=== PATIENT | female | born 1955 | race Caucasian/White ===

== ENCOUNTER 2023-11-11 10:06 | Observation (INO) ==
--- NOTE | 2023-10-15 10:18 | PAT Medication Instructions ---
Medication Instructions Date of Service October 15, 2023 Home Medications zinc acetate 50 mg (zinc) capsule (Galzin) 50 mg PO BID cholecalciferol (vitamin D3) 125 mcg (5,000 unit) tablet (Vitamin D3) 125 mcg PO QAM cyanocobalamin (vitamin B-12) 2,500 mcg tablet 2,500 mcg PO QAM cyclobenzaprine 10 mg tablet 10 mg PO TID PRN ferrous sulfate 27 mg iron tablet 27 mg PO QAM potassium 99 mg tablet 99 mg PO QAM furosemide 20 mg tablet 40 mg PO QAM DO NOT take the morning of surgery zinc acetate 50 mg (zinc) capsule (Galzin) 50 mg PO BID cholecalciferol (vitamin D3) 125 mcg (5,000 unit) tablet (Vitamin D3) 125 mcg PO QAM cyanocobalamin (vitamin B-12) 2,500 mcg tablet 2,500 mcg PO QAM ferrous sulfate 27 mg iron tablet 27 mg PO QAM potassium 99 mg tablet 99 mg PO QAM furosemide 20 mg tablet 40 mg PO QAM Take morning of surgery With a small sip of water, OTHERWISE NOTHING TO EAT OR DRINK AFTER MIDNIGHT: cyclobenzaprine 10 mg tablet 10 mg PO TID PRN(if needed) Take evening before surgery zinc acetate 50 mg (zinc) capsule (Galzin) 50 mg PO BID cyclobenzaprine 10 mg tablet 10 mg PO TID PRN(if needed) Other Notes If you have any questions please call us at [phone] or [phone] or [phone] or [phone]
--- NOTE | 2023-10-17 09:57 | Anesthesiology Consultation ---
Date of Service October 17, 2023 Assessment & Plan (1) Encounter for pre-operative examination: - check CBC with diff STAT am DOS-final determination to anesthesiologist evaluation am DOS. - upcoming surgeon ordered cardiology pre-operative evaluation Dr. Mundo [place] and will request most recent office note from PCP [facility]. - changes in labs since 09/25/23 discussed in detail with Dr. Shahid who advised notifying surgeon's office of changes in WBC, Hgb, Hct and platelets and that it is to surgeon's determination if anything additional is needed. He advised checking CBC with diff STAT am DOS and contacting blood bank to have platelets available if needed DOS. Mamadou with blood bank confirmed this and states he will notify PAT if request is denied by [place]. Surgeon's office made aware. Continuity of care message sent to LAWANDA RUBY. Chart Review Chart Review: Pending: Refer to Additional Notes / Consult section and Patient seen in Pre Admission Testing Teaching & Discussion Pre-Anesthesia Teaching/Discussion Notes: Instructed NPO after midnight before surgery, except medications with 15 cc of water. Medication instructions provided according to the PAT guidelines. History Surgery Operation Date: 11/08/23 10:35 Proposed Procedures p L3-S1 Decompression and Fusion - Zia Alexander, Height/Weight Height: 5 ft 9 in Weight: 97.8 kg Allergies Allergy/AdvReac Type Severity Reaction Status Date / Time No Known Allergies Allergy Verified 10/11/23 10:03 Medications Home Medications Medication Instructions Recorded Confirmed Last Taken zinc acetate 50 mg (zinc) capsule 50 mg PO BID 01/14/23 10/11/23 01/27/23 (Galzin) cholecalciferol (vitamin D3) 125 125 mcg PO QAM 01/22/23 10/11/23 01/27/23 mcg (5,000 unit) tablet (Vitamin D3) cyanocobalamin (vitamin B-12) 2,500 mcg PO QAM 01/22/23 10/11/23 01/27/23 2,500 mcg tablet cyclobenzaprine 10 mg tablet 10 mg PO TID PRN Pain 01/22/23 10/11/23 01/27/23 ferrous sulfate 27 mg iron tablet 27 mg PO QAM 01/22/23 10/11/23 01/27/23 potassium 99 mg tablet 99 mg PO QAM 01/22/23 10/11/23 01/27/23 furosemide 20 mg tablet 40 mg PO QAM 10/11/23 10/11/23 Unknown Past Medical History Medical History Arthritis Cirrhosis follows with [facility] Heart murmur 01/2023; f/u dr. miranda, cardio (first seen in [place], dr moved to [place] now) Hx of deep venous thrombosis (~2019) left foot s/p hip surgery (was on blood thinner for 6 months) Hx of iron deficiency anemia has had 2 iron infusions in the past Hx of portal hypertension NAFLD (nonalcoholic fatty liver disease) Patient denies h/o stroke, seizures, heart attack, heart failure, DM, HTN, or blood transfusions. Exercise / Class Metabolic Activity III < 4 Walking/Shop/Light housework (denies chest discomfort or shortness of breath with usual activities) Past Family History Family History Mother Dementia Son Crohn's disease Other No family history of adverse response to anesthesia Denies family history of Colorectal cancer Ulcerative colitis Past Surgical History Surgical History H/O abdominal surgery removed sac formed in abdominal region with cauterization *long time ago H/O colonoscopy H/O gastric bypass 2014 *lost 135lbs History of appendectomy History of bladder surgery sling History of cataract surgery rt/left History of cholecystectomy History of esophagogastroduodenoscopy (EGD) History of hip surgery left side>repaired after fx History of open reduction and internal fixation (ORIF) procedure right femur Hx of tooth extraction all top teeth-wears top denture Nausea and vomiting after administration of anesthetic agent denies needing scop patch [place] teeth removed Past Anesthesia History No Hx of Anesthesia Complications and No Family Hx of Anesthesia Complications History of PONV History of PONV (denies needing scop patch) and Hx of Motion Sickness Social History Smoking Status: Never smoker Do You Dip or Chew Tobacco: No Hx Alcohol Use: Yes alcohol intake frequency: holidays/special occasions only Hx Substance Use: No substance use type: does not use Review of Systems Patient denies chest pain, shortness of breath, dyspnea on exertion, snoring, witnessed apneas, reflux, fever, chills, cough, wheezing, or palpitations. Physical Exam Vital Signs Vitals BP 109/69 P 72 TEMP 97.8 SP02 98% on RA RESP 18 Physical Patient resting comfortably in chair in no acute distress, alert and oriented, responding appropriately throughout visit Full cervical extension range of motion without pain TMD 3.5 finger breadths Mallampati Score 3, mildly limited oral opening Dentition: full upper dentures and middle lower bridge, implant to left lower side, denies chipped or loose teeth, caps/crowns, or implants Lungs: normal respiratory effort. Good air movement, clear throughout to auscultation, no adventitious breath sounds Cardiac: regular rate and rhythm, no murmurs noted Carotid arteries: negative bruit bilat Lab Results Anesthesia Preop Results Results Anesthesia Widget: WBC 2.79 K/ul (4.8-10.8) L 10/17/23 Hgb 10.6 g/dl (12.0-16.0) L 10/17/23 Hct 32.0 % (37.0-47.0) L 10/17/23 Plt 70 K/uL (130-400) L 10/17/23 Na 145 mmol/L (136-145) 09/27/23 K 3.7 mmol/L (3.5-5.1) 09/27/23 Cl 109 mmol/L H 09/27/23 CO2 28.6 mmol/L (21-32) 09/27/23 BUN 22.0 mg/dL H 09/27/23 Creat 0.83 mg/dL (0.6-1.2) 09/27/23 Glucose Level 96 mg/dL (70-99) 09/27/23 PT 13.0 Seconds (9.0-12.0) H 10/17/23 PTT 28 Seconds (21-31) 10/17/23 INR 1.2 (0.9-1.1) H 10/17/23 Urine Color Yellow 10/17/23 Urine Appearance Clear (Clear) 10/17/23 Urine pH 5.0 (4.5-7.5) 10/17/23 Urine Specific Vaughan 1.010 (1.000-1.030) 10/17/23 Urine Protein Negative (Negative) 10/17/23 Urine Glucose (UA) Negative (Negative) 10/17/23 Urine Ketones Negative (Negative) 10/17/23 Urine Blood Negative (Negative) 10/17/23 Urine Nitrite Negative (Negative) 10/17/23 Urine Bilirubin Negative (Negative) 10/17/23 Urine Urobilinogen Negative (Negative) 10/17/23 Urine Leukocyte Esterase 2+ (Negative) H 10/17/23 Urine WBC (Auto) 0-5 /hpf (0-5) 10/17/23 Urine RBC (Auto) 0-2 /hpf (0-2) 10/17/23 Urine Hyaline Casts (Auto) 0-2 /lpf (0-2) 10/17/23 Urine Epithelial Cells (Auto) 0-2 /hpf (0-2) 10/17/23 Urine Bacteria (Auto) None Seen (None Seen) 10/17/23 Blood Type O Positive 10/17/23 Antibody Screen NEGATIVE 10/17/23 Testing Electrocardiogram Date: 10/17/23 NSR, rate 71 bpm Chest X-Ray Date: 01/05/23 No evidence of acute pulmonary disease. Echocardiogram Date: 02/19/23 EF 55-60% Normal LV wall motion Grade I diastolic dysfunction Mildly dilated RV RVSP mildly increased at 30 mmHg Mildly dilated atria Mild mitral regurgitation Mild tricuspid regurgitation Systolic murmur is likely related to aortic sclerosis (no evidence of stenosis) vs mild disproportionate upper septal thickening Stress Test Date: 03/12/23 Negative for myocardial ischemia MPHR 81% EF 60-65% No LV regional wall motion abnormalities
[2023-11-11] MEDS: LR 15ML/HR IV SCH (10:32)
[2023-11-11] MEDS: LR 60ML/HR IV SCH (10:32)
[2023-11-11] MEDS: ACETAMINOPHEN 500 MG TAB PO SCH (10:42)
[2023-11-11] MEDS: CeleBREX 200 MG CAP PO SCH (10:42)
[2023-11-11] MEDS: GABAPENTIN 300 MG CAP PO SCH (10:42)
[2023-11-11] MEDS ORDERED: ONDANSETRON INJ 2 MG/ML 2 ML VIAL ONE ×2 (10:45→13:56)
[2023-11-11] MEDS ORDERED: fentaNYL citrate PF 100 MCG/2 ML VIAL ONE (10:45)
[2023-11-11] MEDS ORDERED: MIDAZOLAM HCL 1 MG/ML 2ML VIAL ONE (10:45)
[2023-11-11] MEDS ORDERED: ROCURONIUM BROMIDE 10 MG/ML 5 ML VIAL IV ONE ×2 (10:45→13:40)
[2023-11-11] MEDS ORDERED: LIDOCAINE 2% 2 ML VIAL/AMP(20MG/ML) INFIL ONE (10:45)
[2023-11-11] MEDS ORDERED: PROPOFOL IV EMULSION 10 MG/ML 20 ML VIAL IV ONE (10:45)
[2023-11-11] MEDS ORDERED: SUGAMMADEX SODIUM 200 MG/2 ML VIAL IV ONE (10:46)
[2023-11-11 10:56] LABS: Basophils # (auto) 0.02 K/uL (0.00-0.20); Basophils % (auto) 0.6 %; Eosinophils # (auto) 0.14 K/uL (0.00-0.50); Eosinophils % (auto) 4.4 %; Hematocrit (blood only) 33.1 % (37.0-47.0); Hemoglobin 10.7 g/dl (12.0-16.0); Immature Granulocytes # (auto) 0.01 K/uL (0.01-0.20); Immature Granulocytes % (auto) 0.3 %; Lymphocytes # (auto) 0.99 K/uL (1.20-3.40); Lymphocytes % (auto) 31.3 %; Mean Corpuscular Hemoglobin 32.3 pg (25.0-34.0); Mean Corpuscular Hgb Conc 32.3 g/dL (32.0-36.0); Mean Platelet Volume 10.2 fL (9.4-12.4); Monocytes # (auto) 0.29 K/uL (0.11-0.59); Monocytes % (auto) 9.2 %; Neutrophils # (auto) 1.71 K/uL (1.40-6.50); Neutrophils % (auto) 54.2 %; Platelet Count 88 K/uL (130-400); RDW Coefficient of Variation 14.9 % (11.5-14.5); RDW Standard Deviation 54.5 fL (36.4-46.3); Red Blood Count 3.31 M/uL (4.20-5.40); White Blood Count 3.16 K/ul (4.8-10.8)
--- NOTE | 2023-11-11 12:39 | History & Physical Bridge Note ---
Date of Service November 11, 2023 History & Physical Bridge Note I have examined the patient, reviewed the History & Physical and in the interval since the performance of the History & Physical I have noted the following changes of clinical significance: no changes noted
--- NOTE | 2023-11-11 12:40 | History & Physical Report ---
Date of Service November 11, 2023 Assessment & Plan (1) Neurogenic claudication due to lumbar spinal stenosis: Plan: L3-S1 decompression and fusion History of Present Illness Chief Complaint: Back and bilateral leg pain Primary Care Provider: Ramirez Lilly MD This is a 68-year-old female presents with chronic persistent back and leg pain after failing course of nonoperative care she is here for surgical intervention. Allergies Allergy/AdvReac Type Severity Reaction Status Date / Time No Known Allergies Allergy Verified 11/11/23 10:29 Home Medications Medication Instructions Recorded Confirmed Type zinc acetate 50 mg (zinc) capsule 50 mg PO BID 01/14/23 11/11/23 History (Galzin) cholecalciferol (vitamin D3) 125 125 mcg PO QAM 01/22/23 11/11/23 History mcg (5,000 unit) tablet (Vitamin D3) cyanocobalamin (vitamin B-12) 2,500 mcg PO QAM 01/22/23 11/11/23 History 2,500 mcg tablet cyclobenzaprine 10 mg tablet 10 mg PO TID PRN Pain 01/22/23 11/11/23 History ferrous sulfate 27 mg iron tablet 27 mg PO QAM 01/22/23 11/11/23 History potassium 99 mg tablet 99 mg PO QAM 01/22/23 11/11/23 History furosemide 20 mg tablet 40 mg PO QAM 10/11/23 11/11/23 History Past Med/Surg History Problem List (Updated 11/11/23 @ 12:40 by Zia Alexander DO) Neurogenic claudication due to lumbar spinal stenosis Encounter for pre-operative examination Cirrhosis Portal hypertension NAFLD (nonalcoholic fatty liver disease) Medical History (Updated 11/11/23 @ 12:40 by Zia Alexander DO) Thrombocytopenia Hx of iron deficiency anemia has had 2 iron infusions in the past Hx of portal hypertension NAFLD (nonalcoholic fatty liver disease) Cirrhosis follows with [facility] Arthritis Hx of deep venous thrombosis (~2019) left foot s/p hip surgery (was on blood thinner for 6 months) Heart murmur 01/2023; f/u dr. miranda, cardio (first seen in [place], moved to [place] now) Surgical History History of open reduction and internal fixation (ORIF) procedure right femur Hx of tooth extraction all top teeth-wears top denture History of bladder surgery sling History of hip surgery left side>repaired after fx History of cholecystectomy History of appendectomy H/O abdominal surgery removed sac formed in abdominal region with cauterization *long time ago [place] teeth removed History of cataract surgery rt/left Nausea and vomiting after administration of anesthetic agent denies needing scop patch H/O colonoscopy History of esophagogastroduodenoscopy (EGD) H/O gastric bypass 2014 *lost 135lbs Family History Mother Dementia Son Crohn's disease Other No family history of adverse response to anesthesia Denies family history of Colorectal cancer Ulcerative colitis Social History Smoking Status: Never smoker Second Hand Exposure: No; Do You Dip or Chew Tobacco: No; Tobacco Cessation Education Requested by Patient: No Hx Alcohol Use: Yes Hx Substance Use: No Preferred Language: Slovenian Communication Ability: Effective Rod Buster Helper Required: No Beliefs That Will Affect Care: None Current Living Situation: Spouse Other Information That Helps Us Care for You: No Feels Safe at Home: Yes Safety Concerns: Feels Safe At This Time Assistive Devices: Denture - Upper Physical Exam Physical Exam: Patient is alert and oriented Heart regular in rhythm Lungs clear Results & Data Results & Data Vital Signs (Past 12 Hours) Vital Signs Temp Pulse Resp BP Pulse Ox O2 Del Method 11/11/23 10:33 36.7 C 70 16 140/75 97 Room Air
[2023-11-11] MEDS: BUPIVACAINE/EPINEPHRINE 0.25% 1:200,000 30 ML VIAL ONE (13:49)
[2023-11-11] MEDS ORDERED: DEXAMETHASONE SOD INJ 4 MG/ML VIAL ONE (13:56)
[2023-11-11] MEDS: ceFAZolin 330 MG/ML 1 GM VIAL ONE (14:20)
[2023-11-11] MEDS ORDERED: TRANEXAMIC ACID / 0.7% NACL 1000MG/100ML BAG IV ONE (14:36)
[2023-11-11] MEDS: FLOSEAL HEMOSTATIC MATRIX 10ML TOP ONE (15:18)
--- NOTE | 2023-11-11 15:27 | Operative Report ---
Post Operative Report Pre & Post Diagnosis Operation Date: 11/11/23 12:15 Pre-Op Diagnosis: Spinal Stenosis Lumbar Region with Neurogenic Claudication Lumbar spondylolisthesis Post-Op Diagnosis: same I identified the patient and participated in the time-out.: Yes Procedure Operation Date: 11/11/23 12:15 Actual Procedures #1 revision decompression fusion L2-L3, L3-L4 and L4-5. #2 posterior spinal fusion L3-5. #3 please posttransplantation L3-L5. #4 interbody fusion L4-5. #5 placement of Spira 13 x 26 mm x 2 at L4-L5. #6 placement locally harvested Yayo graft in the posterior gutters. #7 please infuse collagen sponge combined with corresponding graft in the posterior lateral gutters and Morpheus bone graft interbody space. Surgeon Zia Alexander, DO Clinical Admissions Manager Rosaline Elizabeth Estimated Blood Loss 450 Findings See Below The patient is 5 foot 9 weighing over 9 kg with a BMI in excess of 32. The patient perhaps did contribute to significant technical difficulty with positioning exposure and the procedure itself and at least 50% increased operative time. Specimens None Indications This is a 68-year-old female presents with the above mentioned diagnoses after failing course of nonoperative care she is here for surgical intervention. Description of Procedure Patient was met with identified informed consent obtained. Patient was then taken to the operative suite underwent the patient placement prone position on the El table on top of the Bubba frame. All bony prominences well-padded eyes inspected to ensure no external pressure placed upon them. This point the lumbar spine was prepped and draped in the normal sterile fashion. Sharp dissection with the assistance of Bovie cautery from down to and exposing the remaining lamina and transverse processes of L3-L4 bilaterally. From a colesevelam fashion a revision complete laminectomy of L4 was performed including bilateral medial facetectomy and foraminotomies addressing severe spinal stenosis and facet hypertrophy. The performed a complete laminectomy of L3 with bilateral medial facetectomies and foraminotomies addressing severe spinal stenosis and lastly partial laminectomy L2 with bilateral medial facetectomies to address severe subarticular stenosis. Pedicle screws were then placed at L3 L4-5 bilaterally with assistance of fluoroscopy and pelvis as niharika placed. By way of transforaminal approach right a discectomy L4-L5 was performed and titrated to subcortical bleeding bone with a 13 x 26 mm para cage filled with Morpheus bone graft tapped into position. Then proceeded to the left transforaminal region at L4-5. Again complete discectomy performed imp lant, distal cortical and bone and a second 13 x 26 mm spiral cage filled with Morpheus bone graft tapped in position. Rods were then compressed the transverse processes of L3-L4 fiber to subcortical bleeding bone. Infuse collagen sponge combined with Koros and local autograft placed in the posterior lateral gutters. 15 round PEE drain inserted. Incision was then closed with 1 Vicryl in the fascia 2-0 Vicryl subcutaneously and 4 Monocryl for final skin closure. Steri-Strips and sterile dressing placed. Patient waken taken to PACU in a stable condition. Please note spinal cord monitoring was utilized throughout the procedure no changes noted. Rosaline Elizabeth was present at the entire procedure and both the patient positioning complex portions of the procedure and final skin closure. Im ordering 20 grams of Triple Bristol Collagen Powder ([employer].It [id number]) to treat an incision wound that was caused by a spine procedure. The incision is approximately 2 cm(W) x 4 cm(L) into the joint (D) in size and is a full thickness wound. Triple Bristol collagen comes in 1 gram packets so 20 packets were ordered. Given the size of the wound, with light to moderate exudate I chose to order a 20 day supply. The patient will be provided instructions for proper application of the collagen wound kit. The patient will be asked to apply the collagen powder daily and then cover it with sterile dressings dispensed. Collagen was selected as I expect the collagen to attract monocytes and fibroblasts, act as a sacrificial substrate for MMPs, and ultimately proved a matrix for tissue and vessel growth. The collagen will act as a primary dressing in this scenario. It is medically necessary for proper healing of these wounds to improve bioavailability and contact with each wound surface, this is also to help prevent infection of wounds and promote healing ultimately leading to a better healing outcome and limit the risk of infection. I attest to the content of the Intraoperative Record and any orders documented therein. Any exceptions are noted below.
--- NOTE | 2023-11-11 15:33 | Fluoroscopy Report ---
FL lumbar spine 2-3V CLINICAL HISTORY: L3-S1 DECOMPRESSION AND FUSION WITH INTERBODIES COMPARISON STUDY: None. FLUOROSCOPY TIME: 23 seconds FLUOROSCOPY IMAGES: 2 Ka,r: 15.6 mGy FINDINGS: Posterior decompression and fusion at L3-L5 with pedicle screws and rods. Hardware appears intact. Disc spacer is noted at the L4-5 level. Small curvilinear density at the L3 laminectomy site may represent a small pledget. IMPRESSION: Fluoroscopic assistance as above. ACT 112: Negative or not required by law. Electronically signed by: Joe Faust M.D. 11/11/2023 3:32 PM
[2023-11-11] MEDS ORDERED: HYDROmorphone INJ 2 MG/ML SYR/VIAL IV PRN (16:15)
[2023-11-11] MEDS ORDERED: ATROPINE SULFATE 0.1 MG/ML 10ML SYR IV PRN (16:15)
[2023-11-11] MEDS ORDERED: ONDANSETRON INJ 2 MG/ML 2 ML VIAL IV PRN ×2 (16:15→17:16)
[2023-11-11] MEDS ORDERED: ePHEDrine sulfate 50 MG/ML AMP IV PRN (16:15)
[2023-11-11] MEDS ORDERED: PROMETHAZINE HCL 6.25 MG in SODIUM CHLORIDE 0.9% 50 ML IV PRN (16:15)
[2023-11-11] MEDS ORDERED: fentaNYL citrate PF 100 MCG/2 ML VIAL IV PRN (16:15)
--- NOTE | 2023-11-11 16:27 | Anesthesiology Progress Note ---
Date of Service November 11, 2023 Anesthesia Post Procedure Vital Signs Vital Signs: Temp Pulse Pulse Resp BP Pulse Ox O2 Del Method 11/11/23 16:15 63 12 128/72 97 Nasal Cannula 11/11/23 16:05 69 13 135/77 97 Nasal Cannula 11/11/23 15:55 63 13 137/73 99 Nasal Cannula 11/11/23 15:45 64 13 142/68 H 99 Nasal Cannula 11/11/23 15:37 36.0 C L 71 12 131/69 98 Nasal Cannula 11/11/23 10:33 36.7 C 70 16 140/75 97 Room Air O2 Flow Rate 11/11/23 16:15 0 11/11/23 16:05 2 11/11/23 15:55 4 11/11/23 15:45 4 11/11/23 15:37 4 11/11/23 10:33 Pain Intensity Bilateral Lower Back: Pain Intensity: 5 Transfer of Care Handoff Completed per policy Notes Mental Status: alert / awake / arousable and participated in evaluation Patient Amnestic to Procedure: Yes Nausea / Vomiting: adequately controlled Pain: adequately controlled Airway Patency, RR, SpO2: stable & adequate BP & HR: stable & adequate Hydration State: stable & adequate Anesthetic Complications: no major complications apparent and Pt Satisfied with anesthetic care
[2023-11-11] MEDS ORDERED: FAMOTIDINE 20 MG TAB PO PRN (17:16)
[2023-11-11] MEDS ORDERED: HYDROmorphone INJ 0.5 MG/0.5 ML SYR IV PRN (17:16)
[2023-11-11] MEDS ORDERED: DO NOT ADMINISTER PNEUMOCOCCAL VACCINE PRN (17:16)
[2023-11-11] MEDS ORDERED: oxyCODONE HCL IR 5 MG TAB (IMMEDIATE RELEASE) PO PRN (17:16)
[2023-11-11] MEDS ORDERED: SOD PHOSPHATE/SOD BIPHOSPHATE ENEMA 132 ML BTL PR PRN (17:16)
[2023-11-11] MEDS ORDERED: NALOXONE HCL 0.4 MG/1 ML VIAL/CARP IV PRN (17:16)
[2023-11-11] MEDS ORDERED: METOCLOPRAMIDE HCL INJ 5 MG/ML 2 ML VIAL IV PRN (17:16)
[2023-11-11] MEDS ORDERED: CYCLOBENZAPRINE HCL 10 MG TAB PO PRN (17:16)
[2023-11-11] MEDS ORDERED: ACETAMINOPHEN 500 MG TAB PO PRN (17:16)
[2023-11-11] MEDS ORDERED: ONDANSETRON 4 MG OD TAB PO PRN (17:16)
[2023-11-11] MEDS ORDERED: DO NOT ADMINISTER FLU VACCINE PRN (17:16)
[2023-11-11] MEDS ORDERED: LORazepam 0.5 MG in SYRINGE 0.25 ML IV PRN (17:16)
[2023-11-11] MEDS ORDERED: PROMETHAZINE HCL 12.5 MG in SODIUM CHLORIDE 0.9% 50 ML IV PRN (17:16)
[2023-11-11] MEDS ORDERED: HYDROmorphone INJ 1 MG/ML SYRINGE IV PRN (17:16)
[2023-11-11] MEDS ORDERED: diphenhydrAMINE Capsule 25 MG CAP PO PRN (17:16)
[2023-11-11] MEDS ORDERED: MAGNESIUM HYDROXIDE SUSP 30 ML UDC PO PRN (17:16)
[2023-11-11] MEDS ORDERED: bisacodyL 10 MG SUPP PR PRN (17:16)
[2023-11-11] MEDS ORDERED: ALUMINUM/MAGNESIUM SUSP 30 ML UDC PO PRN (17:16)
[2023-11-11] MEDS ORDERED: ACETAMINOPHEN 1,000 MG/100 ML VIAL IV PRN (17:16)
[2023-11-11] MEDS ORDERED: hydrOXYzine HCl 25 MG TAB PO PRN (17:16)
[2023-11-11] MEDS: ceFAZolin 2000MG 2,000 MG/15 ML SYR IV SCH ×2 (17:18→21:21)
[2023-11-11] MEDS: SODIUM CHLORIDE 0.9% 1,000 ML IV SCH (17:52)
--- NOTE | 2023-11-11 18:14 | Hospitalist Consultation ---
Date of Consultation November 11, 2023 Assessment & Plan (1) S/P spinal surgery: This is a 68yo F with a PMH of NAFLD cirrhosis with portal HTN, AV sclerosis and other medical problems listed below who is POD#0 s/p revision decompression fusion L2-L3, L3-L4 and L4-5, posterior spinal fusion L3-5, please post transplantation L3-L5, interbody fusion L4-[address] Alexander. POD#0 s/p revision decompression fusion L2-L3, L3-L4 and L4-5, posterior spinal fusion L3-5, please posttransplantation L3-L5, interbody fusion L4-[address] Alexander. Per ortho for pain control, wound care, anticoagulation and activities Monitor H&H (EBL 450ml, pre-op hgb 10.7) Continue incentive spirometry, PT/OT when appropriate (2) Cirrhosis: (3) NAFLD (nonalcoholic fatty liver disease): (4) Portal hypertension: Follows with [facility]. Continue home dose lasix tomorrow based on volume status, BMP in AM 2g sodium restriction (5) Systolic murmur: May 2023 echo with EF 55-60% and mild TR, AV sclerosis but no stenosis, diastolic dysfunction. Dr. Rowe of [place] cards reviewed, recommends aspirin 81mg daily DVT Ppx: SCDs Code status: FULL PCP: [facility] Brigida Dispo: Per primary service Patient seen in collaboration with Dr. Wilson. Please see addendum. I spent a total of 60 minutes coordinating, documenting, and providing care for this patient excluding time spent in the performance of separately billed services. Thank you for this consultation. We will follow the patient with you during their hospital stay. You can reach a member of the [facility] Hospitalist Team 12/11 via [email or web address]. Supervising Physician Co-Signing Physician Notes Pt was seen and examined by myself, Chrystal Wilson MD on the day of service. Care was coordinated with Venus Hanson PA-C. 68yoF s/p lumbar decompression and fusion with ortho spine. States that her pain is well controlled, denied acute concerns at time of exam. monitor hgb postop, ensure cardiology and GI followup after discharge Otherwise as above. I spent a total [id number] coordinating, documenting, and providing care for this patient excluding time spent in the performance of separately billed services History of Present Illness Reason for Consultation: post op med mgmt Attending Physician: Zia Alexander DO History of Present Illness This is a 68yo F with a PMH of NAFLD cirrhosis with portal HTN, AV sclerosis and other medical problems listed below who is POD#0 s/p revision decompression fusion L2-L3, L3-L4 and L4-5, posterior spinal fusion L3-5, please posttransplantation L3-L5, interbody fusion L4-[address] Alexander. Feels well post operatively. Endorsing some minimal surgical site discomfort. No pain or paresthesias of lower extremities. Has Colindres catheter in place. No nausea or vomiting postoperatively. Receives primary care through [facility]. Follows with [facility] service for NAFLD cirrhosis on Lasix and low-sodium diet. No fever, chills, lightheadedness, chest pain, shortness of breath, nausea, vomiting, abdominal pain, dysuria, diarrhea or constipation. Allergies Allergy/AdvReac Type Severity Reaction Status Date / Time No Known Allergies Allergy Verified 11/11/23 10:29 Home Medications Medication Instructions Recorded Confirmed Type zinc acetate 50 mg (zinc) capsule 50 mg PO BID 01/14/23 11/11/23 History (Galzin) cholecalciferol (vitamin D3) 125 125 mcg PO QAM 01/22/23 11/11/23 History mcg (5,000 unit) tablet (Vitamin D3) cyanocobalamin (vitamin B-12) 2,500 mcg PO QAM 01/22/23 11/11/23 History 2,500 mcg tablet cyclobenzaprine 10 mg tablet 10 mg PO TID PRN Pain 01/22/23 11/11/23 History ferrous sulfate 27 mg iron tablet 27 mg PO QAM 01/22/23 11/11/23 History potassium 99 mg tablet 99 mg PO QAM 01/22/23 11/11/23 History furosemide 20 mg tablet 40 mg PO QAM 10/11/23 11/11/23 History Patient History Medical History (Updated 11/11/23 @ 18:20 by Venus Hanson PA-C) Systolic murmur Thrombocytopenia Hx of iron deficiency anemia has had 2 iron infusions in the past Hx of portal hypertension NAFLD (nonalcoholic fatty liver disease) Cirrhosis follows with [facility] Arthritis Hx of deep venous thrombosis (~2019) left foot s/p hip surgery (was on blood thinner for 6 months) Heart murmur 01/2023; f/u dr. miranda, cardio (first seen in [place], dr moved to [place] now) Surgical History (Updated 11/11/23 @ 18:20 by Venus Hanson PA-C) History of open reduction and internal fixation (ORIF) procedure right femur Hx of tooth extraction all top teeth-wears top denture History of bladder surgery sling History of hip surgery left side>repaired after fx History of cholecystectomy History of appendectomy H/O abdominal surgery removed sac formed in abdominal region with cauterization *long time ago [place] teeth removed History of cataract surgery rt/left Nausea and vomiting after administration of anesthetic agent denies needing scop patch H/O colonoscopy History of esophagogastroduodenoscopy (EGD) H/O gastric bypass 2014 *lost 135lbs Family History (Updated 11/11/23 @ 19:09 by Venus Hanson PA-C) Mother Dementia Son Crohn's disease Other Heart disease No family history of adverse response to anesthesia Denies family history of Colorectal cancer Ulcerative colitis Social History Smoking Status: Never smoker Second Hand Exposure: No; Do You Dip or Chew Tobacco: No; Tobacco Cessation Education Requested by Patient: No Hx Alcohol Use: Yes Hx Substance Use: No Preferred Language: Amharic Communication Ability: Effective Sports Medicine Trainer Required: No Beliefs That Will Affect Care: None Current Living Situation: Spouse Other Information That Helps Us Care for You: No Feels Safe at Home: Yes Safety Concerns: Feels Safe At This Time Assistive Devices: Denture - Upper Review of Systems Review of Systems: At least ten systems reviewed and negative except as noted in the HPI. Physical Exam Physical Exam: General Appearance: WD/WN, vitals as above, NAD, sitting up in bed, pleasant, conversing easily Head: normocephalic, atraumatic Eyes: normal inspection, PERRL ENT: oropharynx normal Neck: normal visual inspection Respiratory: normal respiratory effort, lungs clear to auscultation, no wheeze, rales, rhonchi. No accessory muscle use Cardiovascular: regular rate, rhythm,normal peripheral pulses, trace BLE edema. Vessels: no JVD Abdomen/GI: normal bowel sounds, soft, nontender, no hepatosplenomegaly : + Colidnres Extremities/Musculoskeletal: + Spinal dressing c/d/i. PEE drain visualized. No cyanosis or clubbing, extremities motor strength 5/5 Neurologic: PERRL, no face palsy, no dysarthria, moves all extremities Psychiatric: A+Ox3, euthymic affect Skin: no rashes, normal color, warm/dry Results & Data Results & Data Vital Signs (Past 12 Hours) Vital Signs Temp Pulse Pulse Pulse Resp BP Pulse Ox 11/11/23 17:44 36.3 C L 60 16 149/80 H 95 11/11/23 17:19 36.4 C L 61 16 137/75 96 11/11/23 16:25 36.4 C L 60 12 128/72 96 11/11/23 16:15 63 12 128/72 97 11/11/23 16:05 69 13 135/77 97 11/11/23 15:55 63 13 137/73 99 11/11/23 15:45 64 13 142/68 H 99 11/11/23 15:37 36.0 C L 71 12 131/69 98 11/11/23 10:33 36.7 C 70 16 140/75 97 O2 Del Method O2 Flow Rate 11/11/23 17:44 Room Air 11/11/23 17:19 Room Air 11/11/23 16:25 Room Air 0 11/11/23 16:15 Room Air 0 11/11/23 16:05 Nasal Cannula 2 11/11/23 15:55 Nasal Cannula 4 11/11/23 15:45 Nasal Cannula 4 11/11/23 15:37 Nasal Cannula 4 11/11/23 10:33 Room Air Laboratory Results Short CBC 11/11/23 Range/Units 10:25 WBC 3.16 L (4.8-10.8) K/ul Hgb 10.7 L (12.0-16.0) g/dl Hct 33.1 L (37.0-47.0) % Plt Count 88 L (130-400) K/uL Diagnostic Findings Lumbar Spine X-Ray 11/11/23 12:15 FL lumbar spine 2-3V CLINICAL HISTORY: L3-S1 DECOMPRESSION AND FUSION WITH INTERBODIES COMPARISON STUDY: None. FLUOROSCOPY TIME: 23 seconds FLUOROSCOPY IMAGES: 2 Ka,r: 15.6 mGy FINDINGS: Posterior decompression and fusion at L3-L5 with pedicle screws and rods. Hardware appears intact. Disc spacer is noted at the L4-5 level. Small curvilinear density at the L3 laminectomy site may represent a small pledget. IMPRESSION: Fluoroscopic assistance as above. ACT 112: Negative or not required by law. Electronically signed by: Joe Faust M.D. 11/11/2023 3:32 PM ECG Additional Comments: EKG reviewed - NSR
[2023-11-11] MEDS: traMADol HCL 50 MG TABLET PO PRN (19:59)
[2023-11-11] MEDS: DOCUSATE SODIUM/SENNA 50/8.6MG TAB PO SCH (20:01)
[2023-11-11] MEDS: ZINC SULFATE 220 MG CAPSULE PO SCH (20:01)
[2023-11-12] MEDS: POLYETHYLENE (MIRALAX) 17 GM PACK PO SCH (05:31)
[2023-11-12] MEDS: dexAMETHasone 6 MG in SYRINGE 0 ML IV SCH (07:47)
[2023-11-12] MEDS: FERROUS SULFATE 325 MG TAB PO SCH (07:47)
[2023-11-12] MEDS: CHOLECALCIFEROL 125 MCG (5,000 UNITS) TAB PO SCH (07:47)
[2023-11-12] MEDS: FUROSEMIDE 40 MG TAB PO SCH (07:47)
[2023-11-12] MEDS: CYANOCOBALAMIN (B-12) 2,500 MCG TABLET PO SCH (07:47)
[2023-11-12 08:47] LABS: Basophils # (auto) 0.01 K/uL (0.00-0.20); Basophils % (auto) 0.1 %; Hematocrit (blood only) 26.4 % (37.0-47.0); Hemoglobin 8.6 g/dl (12.0-16.0); Immature Granulocytes # (auto) 0.04 K/uL (0.01-0.20); Immature Granulocytes % (auto) 0.4 %; Lymphocytes # (auto) 0.69 K/uL (1.20-3.40); Lymphocytes % (auto) 7.5 %; Mean Corpuscular Hemoglobin 32.5 pg (25.0-34.0); Mean Corpuscular Hgb Conc 32.6 g/dL (32.0-36.0); Mean Corpuscular Volume 99.6 fL (80.0-100.0); Mean Platelet Volume 10.9 fL (9.4-12.4); Monocytes # (auto) 0.81 K/uL (0.11-0.59); Monocytes % (auto) 8.8 %; Neutrophils # (auto) 7.64 K/uL (1.40-6.50); Neutrophils % (auto) 83.2 %; Platelet Count 99 K/uL (130-400); RDW Coefficient of Variation 14.7 % (11.5-14.5); RDW Standard Deviation 53.5 fL (36.4-46.3); Red Blood Count 2.65 M/uL (4.20-5.40); White Blood Count 9.19 K/ul (4.8-10.8)
[2023-11-12] MEDS ORDERED: NON-FORMULARY MEDICATION (Potassium 99 mg Tablet) PO SCH (09:00)
[2023-11-12 09:06] LABS: BUN Creatinine Ratio 32.9 (10-20); Calcium 7.8 mg/dl (8.6-10.3); Creatinine Clr Calc Pharmacy 89.9 ml/min; Est GFR (African American) 96.7 ml/min; Est GFR (Non-African American) 83.4 ml/min
--- NOTE | 2023-11-12 09:24 | Hospitalist Progress Note ---
Date of Service November 12, 2023 Assessment & Plan (1) S/P spinal surgery: Plan: Acute blood loss anemia This is a 68yo F with a PMH of NAFLD cirrhosis with portal HTN, AV sclerosis and other medical problems listed below who is POD#0 s/p revision decompression fu vickey L2-L3, L3-L4 and L4-5, posterior spinal fusion L3-5, please posttransplantation L3-L5, interbody fusion L4-[address] Alexander. POD#1 s/p revision decompression fusion L2-L3, L3-L4 and L4-5, posterior spinal fusion L3-5, please posttransplantation L3-L5, interbody fusion L4-[address] Alexander. Per ortho for pain control, wound care, anticoagulation and activities Postop hemoglobin of 8.6; down from baseline of 10.7 Continue incentive spirometry, PT/OT when appropriate Monitor PEE drain (2) Cirrhosis: (3) NAFLD (nonalcoholic fatty liver disease): (4) Portal hypertension: Plan: Follows with [facility]. will resume her lasix from tomorrow 2g sodium restriction (5) Systolic murmur: Plan: May 2023 echo with EF 55-60% and mild TR, AV sclerosis but no stenosis, diastolic dysfunction. Dr. Rowe of [place] cards reviewed, recommends aspirin 81mg daily DVT Ppx: SCDs Code status: FULL PCP: [facility] Brigida Dispo: Per primary service Thank you for this consultation. We will follow the patient with you during their hospital stay. You can reach a member of the [facility]11 via [employer]. Please note the above document was generated using voice recognition software. It may contain grammatical, syntax or spelling errors. Any formal questions or concerns about the content, text or information contained within the body of this dictation should be directly addressed to the provider for clarification Admission and Anticipated Discharge Date Admission Date: November 11, 2023 Subjective Patient seen and examined at bedside. Comfortable; not in distress. Denies fever, chills, chest pain, shortness of breath, abdominal pain or urinary symptoms. No significant overnight events Review of Systems Review of Systems: All systems reviewed & are unremarkable except as noted in Subjective Physical Exam Physical Exam: General Appearance: WD/WN, vitals as above, NAD, pleasant, conversing easily Respiratory: normal respiratory effort, lungs clear to auscultation, no wheeze, rales, rhonchi. No accessory muscle use Cardiovascular: regular rate, rhythm,normal peripheral pulses, trace BLE edema. Vessels: no JVD Abdomen/GI: normal bowel sounds, soft, nontender, no hepatosplenomegaly : + Colindres Extremities/Musculoskeletal: + Spinal dressing c/d/i. PEE drain visualized. No cyanosis or clubbing, extremities motor strength 5/5 Neurologic: PERRL, no face palsy, no dysarthria, moves all extremities Psychiatric: A+Ox3, euthymic affect Skin: no rashes, normal color, warm/dry Results & Data Results & Data Vital Signs (Past 12 Hours) Vital Signs Temp Pulse Resp BP BP Pulse Ox O2 Del Method 11/12/23 07:34 36.6 C 70 16 103/64 95 Room Air 11/12/23 03:07 36.5 C 73 16 109/61 96 Room Air 11/11/23 23:29 36.5 C 65 15 108/63 96 Room Air
--- NOTE | 2023-11-12 09:52 | Orthopedic Progress Note ---
Date of Service November 12, 2023 Assessment & Plan (1) Neurogenic claudication due to lumbar spinal stenosis: Plan: This time we will continue physical therapy monitor her PEE output hopefully discharge home in the next few days. Admission and Anticipated Discharge Date Admission Date: November 11, 2023 Subjective Back pain controlled leg pain improved Physical Exam Physical Exam: Patient seen at bedside. She is comfortable. Section strength testing. Results & Data Vital Signs (Past 12 Hours) Vital Signs Temp Pulse Resp BP BP Pulse Ox O2 Del Method 11/12/23 07:34 36.6 C 70 16 103/64 95 Room Air 11/12/23 03:07 36.5 C 73 16 109/61 96 Room Air 11/11/23 23:29 36.5 C 65 15 108/63 96 Room Air Queries Orthopedic Spine Obesity: Yes
[2023-11-12] MEDS: LORazepam 0.5 MG TAB PO PRN (22:26)
[2023-11-13] MEDS: FUROSEMIDE 40 MG TAB PO SCH (08:00)
--- NOTE | 2023-11-13 09:38 | Discharge Summary ---
Date of Service November 13, 2023 Admission HPI Per Admitting Provider This is a 68-year-old female presents with chronic persistent back and leg pain after failing course of nonoperative care she is here for surgical intervention. Principal Diagnosis Lumbar spinal stenosis with neurogenic claudication Discharge Data Allergies Allergy/AdvReac Type Severity Reaction Status Date / Time No Known Allergies Allergy Verified 11/11/23 10:29 Consultations 11/11/23 17:16 Consult Hospitalist Routine Procedures Performed Operation Date: 11/11/23 12:15 Actual Procedures p L3-S1 Decompression and Fusion(Not Applicable) - Zia Alexander DO Ordered Studies 11/11/23 12:15 FL lumbar spine 2-3V Routine Hospital Course (1) Neurogenic claudication due to lumbar spinal stenosis: Impressive patient went multilevel lumbar decompression fusion trial as well as taken to orthopedic for postoperative. Postop as she progressed appropriately. Leg symptoms improved. Back pain controlled. Excellent strength testing. Subsidy discharged home. She will be discharged home with her drain and follow- up in the office next few days for removal. Discharge orders instructions from the chart for further review. Total Time Total Time Spent Total Time Spent (In Minutes): 20 minutes Discharge Plan Discharge Items Patient Disposition: Home - Self-Care Reason For Visit: Spinal Stenosis Lumbar Region with Neurogenic Vanda Discharge Diagnosis: lumbar stenosis Activity: As commented below Non-emergency contact: Primary Care Provider Call non-emergency contact if: you have any medication questions Follow-up/Referrals: Ramirez Lilly MD [Primary Care Provider] - Diet: Regular Addtl Attending Provider Instructions: ACTIVITY RECOMMENDATIONS: SELF CARE INSTRUCTIONS AFTER THORACIC/LUMBAR FUSIONS 1. You may walk to your tolerance. It is good exercise for your legs and back. Expect some back and intermittent leg aches and pains. 2. You may perform "counter-top" level activities (make a sandwich, laura with a project, etc.). 3. No bending or lifting of more than 10 pounds or back twisting of any nature (roll like a log when turning in bed). 4. You may ride in a car for 20-30 minutes at a time. No driving until after your first visit with your doctor. 5. Frequent changes of position and restricting sitting to 30 minutes at a time will help limit the amount of back spasms and stiffness you may experience. 6. You may discontinue the use of ambulatory aids (cane, crutches, etc.) once your strength and confidence allow. 7. You may pulmonologist/intensivist the shower and let water strike your incision when you arrive home at least once daily. Do not take a tub bath, sit in a hot tub or go into a swimming pool until after your first recheck in the office. SPECIAL CARE INSTRUCTIONS: VERY IMPORTANT TO READ AND REVIEW A. Your surgical incision has been closed with a cosmetic suture under the skin that will dissolve in about 6 weeks. In 14 days, you can use a pair of clean scissors and cut the suture that is left outside of the skin at the ends of your incision. 1. The small skin tapes can be removed 7 days after surgery if they have not fallen off by that point. 2. You may keep the wound open to air as much as possible to promote healing after post-op day number 5 unless told otherwise by your doctor. 3. If you think the wound looks like it is becoming infected (redness or worsening drainage) and/or you are experiencing fever, chill or worsening back pain and muscle spasms, contact the office so that we may evaluate you as soon as possible. B. Complications are uncommon, but please contact us if you have any signs or symptoms of: 1. wound infection (fever higher than 102.5 degrees F, redness, separation of wound, drainage, or increasing pain from the incision) 2. blood clots in legs (pain, swelling, redness and warmth in legs) 3. urinary tract infection (fever higher than 102.5 degrees F, burning upon urination or increased frequency of urination) 4. nerve problems (inability to walk on your toes or heels, numbness, loss of bowel or bladder control) 5. any other symptoms that concern you C. Please call the office at if you have any concerns or questions about your operation or recovery. D. No smoking! Smoking drastically decreases the chance of a solid fusion. E. Do not take any anti-inflammatory medications (Indocin, Advil, Motrin, Aspirin, Naprosyn, etc.) as these may inhibit the chance of a solid fusion. Tylenol is okay to take for pain. MANAGING PAIN AFTER SPINAL SURGERY 1. Narcotic medication is intended for short-term use and will be provided for surgical pain. Surgical pain usually lasts for a period of 4-6 weeks. Narcotic medication includes Percocet, Vicodin, Darvocet, Tylenol #3 or Lortab. 2. Longer-term pain is more appropriately treated with non-narcotic medication such as Tylenol ES. 3. Muscle spasm is not appropriately treated with narcotics. Muscle relaxers such as Soma, Flexeril or Skelaxin can be used along with Tylenol ES. 4. Remember that we all live with some "aches and pains". This is not unusual or uncommon after an injury or as we get older. a. Back pain is expected and may include muscle spasms for 4 to 6 weeks after surgery. The pain should gradually improve. If the pain worsens for no apparent reason, please contact the office. b. Intermittent leg pain may also be experienced and should not be concerned about unless it worsens for no apparent reason. If so, please contact the office. 5. We will provide appropriate medication within the normal guidelines of their prescribed use. We will also be very cautious and aware of potential abuse and extended duration of patients' medication needs. a. Pain medications are for your comfort and to assist with sleep and rest so that the tissue can heal. They are not provided in order to return to normal activity and should not be used through the day. To do so or worsening pain at night can result from ongoing tissue damage and development of tolerance to the prescribed medicine. 6. Please allow 2-3 days to process refills. Prescriptions will not be mailed but must be picked up at the office. FOLLOW UP VISIT: Keep your scheduled follow-up appointment. Any questions, please call the office at . Pending Studies at Discharge: No Stand-Alone Forms: [facility] [employer], Smoking Cessation Medications and DC Order Prescriptions: New tramadol 50 mg tablet 50 mg PO Q6H PRN (Reason: pain, moderate) Qty: 30 0RF oxycodone 5 mg tablet 5 mg PO Q6H PRN (Reason: pain) Qty: 30 0RF Continued Galzin 50 mg (zinc) capsule 50 mg PO BID cyclobenzaprine 10 mg Tablet 10 mg PO TID PRN (Reason: Pain) potassium 99 mg Tablet 99 mg PO QAM ferrous sulfate 27 mg iron Tablet 27 mg PO QAM cholecalciferol (vitamin D3) [Vitamin D3] 125 mcg (5,000 unit) Tablet 125 mcg PO QAM cyanocobalamin (vitamin B-12) 2,500 mcg Tablet 2,500 mcg PO QAM furosemide 20 mg tablet 40 mg PO QAM Discharge Orders: Discharge Order (Routine); Ordered 11/13/23 Ordered By: Zia Alexander Admission Data Admit Date/Time: 11/11/23 15:30 Attending Provider: Zia Alexander Admit Provider: Zia Alexander Primary Care Provider: Ramirez Lilly Other Providers: Chrystal Wilson
--- NOTE | 2023-11-13 19:08 | Hospitalist Progress Note ---
Date of Service November 13, 2023 delayed entry date of service noted above Assessment & Plan (1) S/P spinal surgery: Plan: Acute blood loss anemia This is a 68yo F with a PMH of NAFLD cirrhosis with portal HTN, AV sclerosis and other medical problems listed below who is POD#0 s/p revision decompression fusion L2-L3, L3-L4 and L4-5, posterior spinal fusion L3-5, please posttransplantation L3-L5, interbody fusion L4-[address] Alexander. POD#1 s/p revision decompression fusion L2-L3, L3-L4 and L4-5, posterior spinal fusion L3-5, please posttransplantation L3-L5, interbody fusion L4-[address] Alexander. Per ortho for pain control, wound care, anticoagulation and activities Postop hemoglobin of 8.6; down from baseline of 10.7 Continue incentive spirometry, PT/OT when appropriate Monitor PEE drain 11/13 Stable overall Has history of DVT after hip surgery 4 years ago [address] with Dr. Alexander Does not recommend Lovenox subcu for DVT prophylaxis, okay to resume aspirin as per Dr. Alexander Encourage patient to ambulate frequently and monitor for signs of DVT or PE including shortness of breath, chest pain, leg swelling or pain Patient verbalized understanding and agreement and said that she is very cognizant of such symptoms and will seek medical attention immediately if present (2) Cirrhosis: (3) NAFLD (nonalcoholic fatty liver disease): (4) Portal hypertension: Plan: Follows with [facility]. Resume Lasix 2g sodium restriction (5) Systolic murmur: Plan: May 2023 echo with EF 55-60% and mild TR, AV sclerosis but no stenosis, diastolic dysfunction. Dr. Rowe of [place] cards reviewed, recommends aspirin 81mg daily DVT Ppx: SCDs Code status: FULL PCP: [facility] Brigida Dispo: d/c home Admission and Anticipated Discharge Date Admission Date: November 11, 2023 Subjective Follow-up for status post back surgery, etc. Seen sitting up in bed, comfortable, not in distress States she feels fine overall Back pain well-controlled Denies shortness of breath, chest pain, palpitations, dizziness Ambulating in the room with no problems No other new symptoms States she is ready for discharge today Review of Systems Review of Systems: all noted and negative except for above Physical Exam Physical Exam: General- oriented x 3, not in distress, speaks in sentences with no effort or accessory muscle use Eyes- anicteric Neck- no JVD Lungs- clear breath sounds bilaterally, no rales/wheezes Heart- normal rate, regular rhythm; no murmurs Abdomen- normal bowel sounds, nondistended, soft, nontender Extremities- no pretibial edema, no calf tenderness Neuro- alert, oriented x 3; no gross focal neurologic deficits Skin- warm & dry Results & Data Results & Data Vital Signs (Past 12 Hours) Vital Signs Temp Pulse Resp BP Pulse Ox O2 Del Method 11/13/23 07:54 36.5 C 68 17 110/68 97 Room Air all noted and reviewed including below
== END 2023-11-13 13:11 | disposition home or self-care (01) ==
LOC: 3E 10:06 → ASU 10:06

== ENCOUNTER 2023-11-17 08:55 | Inpatient (IN) ==
--- NOTE | 2023-11-17 09:41 | Emergency Department Note ---
Impression & Plan Right leg swelling, Postoperative back pain ED Provider Note NAME: PORSHA SALES AGE: 68 SEX: Female INFORMANT: Patient ED PROVIDER(S): Timothy Quiroga MD CHIEF COMPLAINT: Right leg swelling and numbness PLAN: Disposition: Admitted Outpatient prescription management: none Referral: None MEDICAL DECISION MAKING: Patient presented due to concerns about leg swelling and numbness after her surgery. She did have a history of blood clot. Ultrasound imaging and blood work performed. Patient declined analgesia. She had no evidence of DVT on ultrasound imaging. Chronic pancytopenia and mild elevation of LFTs that was also chronic noted. Patient was reassessed and updated. Consulted with her surgeon, Dr. Alexander. Discussed case and diagnostics. He recommended IV Decadron and will admit the patient for further management. Discussed with patient and significant other. They are in agreement. Patient given IV Decadron and admitted for further care by orthopedics. 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 Vital Signs: reviewed and remarkable for no significant abnormalities Additional History obtained from: none Chronic Medical/Social Conditions affecting care: none Prior/ Outside/ External records reviewed: Operative report from 11/10 reviewed regarding her decompression of L2-3, L3-4, L4-5. Differential Diagnosis: DVT, complication of recent surgery, musculoskeletal, disc herniation, fracture, metastatic disease, cord compression, discitis, sciatica, cauda equina, infection, aortic disease, renal colic, gastrointestinal, as well as other pathologies. Diagnostics, independently interpreted by me: ECG: None Cardiac Monitoring: Cardiac monitoring ordered by me: The patient was placed on continuous cardiac monitoring and observed. It revealed a normal sinus rhythm at 73 beats per minute without ectopy or evidence of dysrhythmia. Medical decision rules: none Imaging studies: Ultrasound imaging negative for DVT. I refer you to the EMR for further details. HPI: 68 year old Female arrives for evaluation of right leg swelling and numbness. Patient underwent back surgery by Dr. Alexander on 11/10 with decompressions of L2-3, L3-4, and L4-5. Patient states she was doing well. Last night she was noting that her right leg was swollen. She noted numbness that went from her buttock down into her leg. She states that her leg gave out and she fell. She does not feel like she suffered an injury from the fall. She was concerned due to the recent surgery and swelling. Pt denies LOC, headache, neck pain, fevers, chills, chest pain, breathing difficulties, abdominal pain, saddle parasthesias, bowel or bladder dysfunction, weakness, urinary symptoms, or other complaints. PAST MEDICAL HISTORY: See Below, chronic low back pain PAST SURGICAL HISTORY: See Below, lumbar decompression SOCIAL HISTORY: See Below, non-smoker HOME MEDICATIONS: See Below ALLERGIES: See Below VITALS: See Below PHYSICAL EXAMINATION: GENERAL: Awake, alert, well-appearing, in no distress HENT: Normocephalic, atraumatic. Oropharynx unremarkable. EYES: Normal conjunctiva. Sclera non-icteric. NECK: Inspection normal. Non-tender. Supple. No nuchal rigidity. FROM. No masses. RESPIRATORY: Clear to auscultation. No wheezes. No rales. Normal respiratory effort. CARDIAC: Normal rate. Normal rhythm. No murmurs. No rubs. Extremities warm and well perfused. Pulses equal. No JVD. GI: Soft, non-distended. No tenderness to palpation. No rebound or guarding. No masses. RECTAL: Deferred. MUSCULOSKELETAL: Atraumatic. Chest examination reveals no tenderness. The back is symmetrical on inspection without obvious abnormality. Incision is clean dry and intact. No surrounding cellulitis. There is no CVA tenderness to palpation. No joint edema. LOWER EXTREMITIES: Calves are equal size bilaterally and non-tender. 1+ edema. No discoloration. NEURO: Normal sensorium. No sensory or motor deficits noted except for subjective tingling in the right lower extremity. No saddle anesthesia.. SKIN: No rash or jaundice noted. PROCEDURES: none CRITICAL CARE: none OBSERVATION NOTE: none Past Med/Surg History Problem List (Updated 11/17/23 @ 09:41 by Timothy Quiroga MD) Postoperative back pain (Acute) Right leg swelling (Acute) S/P spinal surgery Neurogenic claudication due to lumbar spinal stenosis Cirrhosis Portal hypertension NAFLD (nonalcoholic fatty liver disease) Medical History (Updated 11/17/23 @ 09:41 by Timothy Quiroga MD) Systolic murmur Thrombocytopenia Hx of iron deficiency anemia has had 2 iron infusions in the past Hx of portal hypertension NAFLD (nonalcoholic fatty liver disease) Cirrhosis follows with [facility] Arthritis Hx of deep venous thrombosis (~2019) left foot s/p hip surgery (was on blood thinner for 6 months) Heart murmur 01/2023; f/u dr. miranda, cardio (first seen in [place], dr moved to [place] now) Surgical History (Updated 11/17/23 @ 00:07 by Marcello Salazar) History of open reduction and internal fixation (ORIF) procedure right femur Hx of tooth extraction all top teeth-wears top denture History of bladder surgery sling History of hip surgery left side>repaired after fx History of cholecystectomy History of appendectomy H/O abdominal surgery removed sac formed in abdominal region with cauterization *long time ago [place] teeth removed History of cataract surgery rt/left Nausea and vomiting after administration of anesthetic agent denies needing scop patch H/O colonoscopy History of esophagogastroduodenoscopy (EGD) H/O gastric bypass 2014 *lost 135lbs Family History (Updated 11/11/23 @ 19:09 by Venus Hanson PA-C) Mother Dementia Son Crohn's disease Other Heart disease No family history of adverse response to anesthesia Denies family history of Colorectal cancer Ulcerative colitis Social History Smoking Status: Never smoker Second Hand Exposure: No; Do You Dip or Chew Tobacco: No; Hx Alcohol Use: Yes Hx Substance Use: No Preferred Language: Macanese Communication Ability: Effective Edge Drummer Required: No Beliefs That Will Affect Care: None Current Living Situation: Spouse Feels Safe at Home: Yes Assistive Devices: None Allergies Allergies Allergy/AdvReac Type Severity Reaction Status Date / Time No Known Allergies Allergy Verified 11/17/23 11:10 Home Meds Home Medications Medication Instructions Recorded Confirmed zinc acetate 50 mg (zinc) capsule 50 mg PO BID 01/14/23 11/17/23 (Galzin) cholecalciferol (vitamin D3) 125 125 mcg PO QAM 01/22/23 11/17/23 mcg (5,000 unit) tablet (Vitamin D3) cyanocobalamin (vitamin B-12) 2,500 mcg PO QAM 01/22/23 11/17/23 2,500 mcg tablet cyclobenzaprine 10 mg tablet 10 mg PO TID PRN Pain 01/22/23 11/17/23 ferrous sulfate 27 mg iron tablet 27 mg PO QAM 01/22/23 11/17/23 potassium 99 mg tablet 99 mg PO QAM 01/22/23 11/17/23 furosemide 20 mg tablet 40 mg PO QAM 10/11/23 11/17/23 aspirin 81 mg tablet,delayed 0 mg PO DAILY 11/17/23 11/17/23 release Previous Rx's Medication Instructions Recorded oxycodone 5 mg tablet 5 mg PO Q6H PRN pain #30 tabs 11/12/23 tramadol 50 mg tablet 50 mg PO Q6H PRN pain, moderate 11/12/23 #30 tabs Results & Data (ED) Vital Signs Vital Signs - 24 hr 11/17/23 09:02 11/17/23 09:14 11/17/23 09:14 Temperature 36.7 C Temperature Source Temporal Artery Scan Pulse Rate 82 81 Pulse Rate [Right Finger] 81 Pulse Rhythm Regular Pulse Rhythm [Right Finger] Regular Pulse Strength [Right Finger] Normal Respiratory Rate 20 16 16 Respiratory Effort / Characteristics Non-Labored Non-Labored Respiratory Depth Normal Normal Respiratory Pattern Regular Blood Pressure 116/68 Blood Pressure [Left Arm] Blood Pressure [Right Arm] 107/68 Blood Pressure Mean 84 Blood Pressure Mean [Left Arm] Blood Pressure Mean [Right Arm] 81 Blood Pressure Position [Left Arm] Blood Pressure Position [Right Arm] Lying Pulse Oximetry 96 96 96 Oxygen Delivery Method Room Air Room Air Room Air Sepsis Recent Fever Within 48 Hours No Sepsis New/Unexplained Change in Mental Status No Sepsis Action Taken by Nursing No Action Required 11/17/23 09:22 11/17/23 09:35 11/17/23 11:07 Temperature Temperature Source Pulse Rate 80 Pulse Rate [Right Finger] 73 66 Pulse Rhythm Pulse Rhythm [Right Finger] Regular Pulse Strength [Right Finger] Normal Respiratory Rate 16 14 Respiratory Effort / Characteristics Non-Labored Non-Labored Spontaneous Respiratory Depth Normal Normal Respiratory Pattern Regular Regular Blood Pressure Blood Pressure [Left Arm] 126/63 148/78 H Blood Pressure [Right Arm] Blood Pressure Mean Blood Pressure Mean [Left Arm] 84 101 Blood Pressure Mean [Right Arm] Blood Pressure Position [Left Arm] Lying Blood Pressure Position [Right Arm] Pulse Oximetry 96 97 Oxygen Delivery Method Room Air Room Air Sepsis Recent Fever Within 48 Hours Sepsis New/Unexplained Change in Mental Status Sepsis Action Taken by Nursing 11/17/23 13:00 11/17/23 14:12 Temperature Temperature Source Pulse Rate 66 Pulse Rate [Right Finger] 65 Pulse Rhythm Pulse Rhythm [Right Finger] Pulse Strength [Right Finger] Respiratory Rate 14 Respiratory Effort / Characteristics Non-Labored Spontaneous Respiratory Depth Normal Respiratory Pattern Regular Blood Pressure Blood Pressure [Left Arm] 119/72 Blood Pressure [Right Arm] Blood Pressure Mean Blood Pressure Mean [Left Arm] 87 Blood Pressure Mean [Right Arm] Blood Pressure Position [Left Arm] Blood Pressure Position [Right Arm] Pulse Oximetry 96 Oxygen Delivery Method Room Air Sepsis Recent Fever Within 48 Hours Sepsis New/Unexplained Change in Mental Status Sepsis Action Taken by Nursing Laboratory Data 11/17/23 09:30 11/17/23 09:30 Lab Results 11/17/23 11/17/23 Range/Units 09:30 10:45 WBC 3.55 L (4.8-10.8) K/ul RBC 2.73 L (4.20-5.40) M/uL Hgb 8.9 L (12.0-16.0) g/dl Hct 27.4 L (37.0-47.0) % MCV 100.4 H (80.0-100.0) fL MCH 32.6 (25.0-34.0) pg MCHC 32.5 (32.0-36.0) g/dL RDW Std Deviation 60.7 H (36.4-46.3) fL RDW Coeff of Rene 16.9 H (11.5-14.5) % Plt Count 70 L (130-400) K/uL MPV 10.2 (9.4-12.4) fL Immature Gran % (Auto) 0.6 % Neut % (Auto) 60.3 % Lymph % (Auto) 17.7 % [place] % (Auto) 16.3 % Eos % (Auto) 4.5 % Baso % (Auto) 0.6 % Neut # (Auto) 2.14 (1.40-6.50) K/uL Lymph # (Auto) 0.63 L (1.20-3.40) K/uL [place] # (Auto) 0.58 (0.11-0.59) K/uL Eos # (Auto) 0.16 (0.00-0.50) K/uL Baso # (Auto) 0.02 (0.00-0.20) K/uL Immature Gran # (Auto) 0.02 (0.01-0.20) K/uL Sodium 137 (136-145) mmol/L Potassium 3.4 L (3.5-5.1) mmol/L Chloride 106 (98-107) mmol/L Carbon Dioxide 28 (21-32) mmol/L Anion Gap 3 (3-11) BUN 20 (6-23) mg/dl Creatinine 0.68 (0.6-1.2) mg/dl Est Cr Clr Drug Dosing 99.2 ml/min Est GFR ( Amer) 102.7 ml/min Est GFR (Non-Af Amer) 88.6 ml/min BUN/Creatinine Ratio 29.4 H (10-20) Glucose 97 (70-99(Fasting)) mg/dl Calcium 7.6 L (8.6-10.3) mg/dl Total Bilirubin 4.3 H (0.2-1.0) mg/dl AST 36 (13-39) U/L ALT 14 (7-52) U/L Alkaline Phosphatase 108 H (34-104) U/L Total Protein 5.2 L (6.0-8.3) gm/dl Albumin 2.6 L (3.4-5.0) gm/dl Globulin 2.6 (2.5-4.0) gm/dl Albumin/Globulin Ratio 1.0 (0.9-2) Urine Color Yellow Urine Appearance Clear (Clear) Urine pH 6.0 (4.5-7.5) Ur Specific [place] 1.009 (1.000-1.030) Urine Protein Negative (Negative) Urine Glucose (UA) Negative (Negative) Urine Ketones Negative (Negative) Urine Blood Negative (Negative) Urine Nitrite Negative (Negative) Urine Bilirubin Negative (Negative) Urine Urobilinogen Positive H (Negative) Ur Leukocyte Esterase Trace H (Negative) Urine WBC (Auto) 0-5 (0-5) /hpf Urine RBC (Auto) 0-2 (0-2) /hpf U Hyaline Cast (Auto) 0-2 (0-2) /lpf U Epithel Cells (Auto) 0-2 (0-2) /hpf Urine Bacteria (Auto) None Seen (None Seen) Administered Medications Discontinued Medications Dexamethasone Sodium Phosphate (DexamethasonePf 10 Mg/Ml Vial) 10 mg IV NOW ONE Stop: 11/17/23 12:53 Last Admin: 11/17/23 13:22 Dose: 10 mg Documented By: KELLEY Imaging Data Radiologist's Impression: Venous Doppler Study 11/17/23 09:25 US venous doppler LE RT HISTORY: 68 years-old Female swelling, eval DVT acute pain and swelling of the right lower leg COMPARISON: None TECHNIQUE: Multiple real-time sonographic images of the right lower extremity deep venous structures were obtained assessing grayscale appearance, color and spectral flow. FINDINGS: Normal flow, compressibility, phasicity and augmentation. Subcutaneous edema limits the study. IMPRESSION: No sonographic evidence of deep venous thrombosis. ACT 112: Negative or not required by law. The above report was generated using voice recognition software. It may contain grammatical, syntax or spelling errors. Electronically signed by: Philippe Sosa M.D. 11/17/2023 10:14 AM Discharge Plan Visit Data Chief Complaint: Leg Injury/Pain Stated Complaint: R LEG PAIN, HAD BACK SURGERY ON SATURDAY ED Provider: Timothy Quiroga Discharge Problem: Right leg swelling, Postoperative back pain Forms Stand Alone Forms: My [employer] Prescriptions Prescriptions: No Action Galzin 50 mg (zinc) capsule 50 mg PO BID cyclobenzaprine 10 mg Tablet 10 mg PO TID PRN (Reason: Pain) potassium 99 mg Tablet 99 mg PO QAM ferrous sulfate 27 mg iron Tablet 27 mg PO QAM cholecalciferol (vitamin D3) [Vitamin D3] 125 mcg (5,000 unit) Tablet 125 mcg PO QAM cyanocobalamin (vitamin B-12) 2,500 mcg Tablet 2,500 mcg PO QAM furosemide 20 mg tablet 40 mg PO QAM tramadol 50 mg tablet 50 mg PO Q6H PRN (Reason: pain, moderate) Qty: 30 0RF oxycodone 5 mg tablet 5 mg PO Q6H PRN (Reason: pain) Qty: 30 0RF aspirin 81 mg Tablet,Delayed Release (Dr/Ec) 0 mg PO DAILY Rx Instructions: Patient usually takes 81mg daily, but couldn't find it on 11/17/23, so she took 325mg instead. Referrals Referrals: Ramirez Lilly MD [Primary Care Provider] -
[2023-11-17 09:51] LABS: Basophils # (auto) 0.02 K/uL (0.00-0.20); Basophils % (auto) 0.6 %; Eosinophils # (auto) 0.16 K/uL (0.00-0.50); Eosinophils % (auto) 4.5 %; Hematocrit (blood only) 27.4 % (37.0-47.0); Hemoglobin 8.9 g/dl (12.0-16.0); Immature Granulocytes # (auto) 0.02 K/uL (0.01-0.20); Immature Granulocytes % (auto) 0.6 %; Lymphocytes # (auto) 0.63 K/uL (1.20-3.40); Lymphocytes % (auto) 17.7 %; Mean Corpuscular Hemoglobin 32.6 pg (25.0-34.0); Mean Corpuscular Hgb Conc 32.5 g/dL (32.0-36.0); Mean Corpuscular Volume 100.4 fL (80.0-100.0); Mean Platelet Volume 10.2 fL (9.4-12.4); Monocytes # (auto) 0.58 K/uL (0.11-0.59); Monocytes % (auto) 16.3 %; Neutrophils # (auto) 2.14 K/uL (1.40-6.50); Neutrophils % (auto) 60.3 %; Platelet Count 70 K/uL (130-400); RDW Coefficient of Variation 16.9 % (11.5-14.5); RDW Standard Deviation 60.7 fL (36.4-46.3); Red Blood Count 2.73 M/uL (4.20-5.40); White Blood Count 3.55 K/ul (4.8-10.8)
[2023-11-17 10:04] LABS: Albumin Level 2.6 gm/dl (3.4-5.0); BUN Creatinine Ratio 29.4 (10-20); Bilirubin,Total 4.3 mg/dl (0.2-1.0); Calcium 7.6 mg/dl (8.6-10.3); Creatinine Clr Calc Pharmacy 99.2 ml/min; Est GFR (African American) 102.7 ml/min; Est GFR (Non-African American) 88.6 ml/min; Globulin 2.6 gm/dl (2.5-4.0); Potassium 3.4 mmol/L (3.5-5.1); Total Protein 5.2 gm/dl (6.0-8.3)
--- NOTE | 2023-11-17 10:16 | Ultrasound Report ---
US venous doppler LE RT HISTORY: 68 years-old Female swelling, eval DVT acute pain and swelling of the right lower leg COMPARISON: None TECHNIQUE: Multiple real-time sonographic images of the right lower extremity deep venous structures were obtained assessing grayscale appearance, color and spectral flow. FINDINGS: Normal flow, compressibility, phasicity and augmentation. Subcutaneous edema limits the study. IMPRESSION: No sonographic evidence of deep venous thrombosis. ACT 112: Negative or not required by law. The above report was generated using voice recognition software. It may contain grammatical, syntax o r spelling errors. Electronically signed by: Philippe Sosa M.D. 11/17/2023 10:14 AM
[2023-11-17 11:04] LABS: Appearance Urine Clear (Clear); Bacteria Urine Automated None Seen (None Seen); Bilirubin Urine Negative (Negative); Blood Urine Negative (Negative); Cast Urine Automated 0-2 /lpf (0-2); Color Urine Yellow; Epithelial Cell Urine Auto 0-2 /hpf (0-2); Glucose Urine UA Negative (Negative); Ketones Urine Negative (Negative); Leukocyte Esterase Urine Trace (Negative); Nitrite Urine Negative (Negative); Protein Urine Negative (Negative); RBC Urine Automated 0-2 /hpf (0-2); Specific Gravity Urine 1.009 (1.000-1.030); Urobilinogen Urine Positive (Negative); WBC Urine Automated 0-5 /hpf (0-5)
[2023-11-17] MEDS: dexAMETHasone**PF** 10 MG/ML VIAL IV ONE (13:22)
[2023-11-17] MEDS ORDERED: PROMETHAZINE HCL 12.5 MG in SODIUM CHLORIDE 0.9% 50 ML IV PRN (17:09)
[2023-11-17] MEDS ORDERED: NALOXONE HCL 0.4 MG/1 ML VIAL/CARP IV PRN (17:09)
[2023-11-17] MEDS ORDERED: ONDANSETRON 4 MG OD TAB PO PRN (17:09)
[2023-11-17] MEDS ORDERED: METOCLOPRAMIDE HCL INJ 5 MG/ML 2 ML VIAL IV PRN (17:09)
[2023-11-17] MEDS ORDERED: CYCLOBENZAPRINE HCL 10 MG TAB PO PRN (17:09)
[2023-11-17] MEDS ORDERED: ACETAMINOPHEN 500 MG TAB PO PRN (17:09)
[2023-11-17] MEDS ORDERED: HYDROmorphone INJ 1 MG/ML SYRINGE IV PRN (17:09)
[2023-11-17] MEDS ORDERED: HYDROmorphone INJ 0.5 MG/0.5 ML SYR IV PRN (17:09)
[2023-11-17] MEDS ORDERED: ONDANSETRON INJ 2 MG/ML 2 ML VIAL IV PRN (17:09)
[2023-11-17] MEDS ORDERED: MAGNESIUM HYDROXIDE SUSP 30 ML UDC PO PRN (17:09)
[2023-11-17] MEDS ORDERED: ACETAMINOPHEN 1,000 MG/100 ML VIAL IV PRN (17:09)
[2023-11-17] MEDS ORDERED: traMADol HCL 50 MG TABLET PO PRN (17:09)
--- NOTE | 2023-11-17 17:40 | Consultation ---
Date of Consultation November 17, 2023 Assessment & Plan (1) Neurogenic claudication due to lumbar spinal stenosis: (2) NAFLD (nonalcoholic fatty liver disease): (3) S/P spinal surgery: (4) Right leg swelling: (5) Cirrhosis: Plan Ms. Arias is a 68 year old female that presents to the ED today with leg swelling and numbness. She recently underwent back surgery under the care of Dr. alexander on 11/10 s/p decompression and fusion surgery of L2-3, L3-4, and L4-5. She reports that last night she noticed that her right leg was swollen with numbness down into her left. She then reports that her leg gave our and she fell. She does have a history of blood clots from her last back surgery and she took oral anticoagulation for six months. Given her recent surgery, a Doppler ultrasound was performed which was negative for DVT. I suspect that her bilateral lower extremity swelling is due to recent discontinuation of her diuretics preoperatively. We will resume and increase diuretics and monitor daily weights. Will replace potassium as well. Neurogenic Claudication due to lumbar spinal stenosis: S/P Spinal surgery: R Leg swelling: POD#6 s/p revision decompression fusion L2-L3, L3-L4 and L4-5, posterior spinal fusion L3-5, please posttransplantation L3-L5, interbody fusion L4-[address] Alexander. LE Doppler US: Negative for DVT Takes Lasix 40 mg IV daily; was on hold pre op weight is approximately 215 lbs; has not noticed recent gain and reports taking daily weights at home suspect her swelling is residual from not taking diuretics Will order Lasix 40 mg once now and BID daily weights and I/O to be checked Dr. Alexander admitting team Hypokalemia: Acute Serum K+ 3.4; will replcae now with KCL 40 meq once now Continue KCL oral 40 meq BID while on IV Lasix no ectopy Cirrhosis: NAFLD (nonalcoholic fatty liver disease): Portal hypertension: Follows with [facility]. Continue home dose lasix tomorrow based on volume status, BMP in AM 2g sodium restriction Systolic murmur: May 2023 echo with EF 55-60% and mild TR, AV sclerosis but no stenosis, diastolic dysfunction. Dr. Rowe of [place] cards reviewed, recommends aspirin 81mg daily Disposition: DVT Prophylaxis: SCDs Code status: FULL PCP: [facility] [place] I spent a total of 62 minutes coordinating, documenting, and providing care for this patient excluding time spent in the performance of separately billed services. All of the aforementioned completed while collaborating with the assigned attending physician for a full treatment plan. Please see their addendum for further details. Supervising Physician Co-Signing Physician Notes Patient was seen and examined with Tammy WOOTEN at bedside. Chart reviewed. Case discussed with Tammy WOOTEN and agree with the documentation above. In summary, this is a 68 year old female with cirrhosis on diuretics who was recently discharged on 11/12 after lumbar spinal surgery by Dr Alexander who presented to the ED with leg swelling and fall. Admitted under Dr Alexander and hospitalist service consulted for medial management. She states bilateral legs progressively swollen despite home diuretics. Denies any neurological symptoms currently in her legs or back. Bilateral LE legs with 2+ edema. Will start on iv lasix 40 bid along with Kdur 40 bid and monitor for UO, daily weight, strict I and Os, daily labs. Rest as per the note above. History of Present Illness Requesting Physician: Dr. Alexander Reason for Consultation: Medical Management Attending Physician: Zia Alexander DO History of Present Illness Ms. Arias is a 68 year old female that presents to the ED today with leg swelling and numbness. She recently underwent back surgery under the care of Dr. alexander on 11/10 s/p decompression and fusion surgery of L2-3, L3-4, and L4-5. She reports that last night she noticed that her right leg was swollen with numbness down into her left. She then reports that her leg gave our and she fell. She does have a history of blood clots from her last back surgery and she took oral anticoagulation for six months. Given her recent surgery, a Doppler ultrasound was performed which was negative for DVT. She denies LOC, RILEY, neck pain, fevers, chills, chest pain, SOB, abdominal pain or tenderness, weakness, dysuria, blood in her stool, or other complaints. I suspect that her bilateral lower extremity swelling is due to recent discontinuation of her diuretics preoperatively. We will resume and increase diuretics and monitor daily weights. Will replace potassium as well. Dr. Alexander recommended IV Decadron for now and recommended she be admitted to the hospital. [facility] Hospitalist service was consulted for medical management. Please see A/P for further details. Allergies Allergy/AdvReac Type Severity Reaction Status Date / Time No Known Allergies Allergy Verified 11/17/23 11:10 Home Medications Medication Instructions Recorded Confirmed Type zinc acetate 50 mg (zinc) capsule 50 mg PO BID 01/14/23 11/17/23 History (Galzin) cholecalciferol (vitamin D3) 125 125 mcg PO QAM 01/22/23 11/17/23 History mcg (5,000 unit) tablet (Vitamin D3) cyanocobalamin (vitamin B-12) 2,500 mcg PO QAM 01/22/23 11/17/23 History 2,500 mcg tablet cyclobenzaprine 10 mg tablet 10 mg PO TID PRN Pain 01/22/23 11/17/23 History ferrous sulfate 27 mg iron tablet 27 mg PO QAM 01/22/23 11/17/23 History potassium 99 mg tablet 99 mg PO QAM 01/22/23 11/17/23 History furosemide 20 mg tablet 40 mg PO QAM 10/11/23 11/17/23 History oxycodone 5 mg tablet 5 mg PO Q6H PRN pain #30 tabs 11/12/23 11/17/23 Rx tramadol 50 mg tablet 50 mg PO Q6H PRN pain, moderate 11/12/23 11/17/23 Rx #30 tabs aspirin 81 mg tablet,delayed 0 mg PO DAILY 11/17/23 11/17/23 History release Patient History Medical History Systolic murmur Thrombocytopenia Hx of iron deficiency anemia has had 2 iron infusions in the past Hx of portal hypertension NAFLD (nonalcoholic fatty liver disease) Cirrhosis follows with [facility] Arthritis Hx of deep venous thrombosis (~2019) left foot s/p hip surgery (was on blood thinner for 6 months) Heart murmur 01/2023; f/u dr. miranda, cardio (first seen in [place], moved to [place] now) Surgical History History of open reduction and internal fixation (ORIF) procedure right femur Hx of tooth extraction all top teeth-wears top denture History of bladder surgery sling History of hip surgery left side>repaired after fx History of cholecystectomy History of appendectomy H/O abdominal surgery removed sac formed in abdominal region with cauterization *long time ago [place] teeth removed History of cataract surgery rt/left Nausea and vomiting after administration of anesthetic agent denies needing scop patch H/O colonoscopy History of esophagogastroduodenoscopy (EGD) H/O gastric bypass 2014 *lost 135lbs Family History Mother Dementia Son Crohn's disease Other Heart disease No family history of adverse response to anesthesia Denies family history of Colorectal cancer Ulcerative colitis Social History Smoking Status: Never smoker Second Hand Exposure: No; Do You Dip or Chew Tobacco: No; Hx Alcohol Use: Yes Hx Substance Use: No Preferred Language: Syriac Communication Ability: Effective Caretaker Required: No Beliefs That Will Affect Care: None Current Living Situation: Spouse Other Information That Helps Us Care for You: No Feels Safe at Home: Yes Safety Concerns: Feels Safe At This Time Assistive Devices: Denture - Upper and Walker Review of Systems Review of Systems: Neuro: (-) Falls, trauma, slurred speech HEENT: (-) RILEY, dizziness, dysphagia, visual or auditory changes CV: (-) CP, palpitations, swelling Resp: (-) SOB GI: (-) appetite changes, N/V/D, bowel changes : (-) urinary changes Skin: (-) rashes Psych: (-) anxiety, depression Physical Exam Physical Exam: Neuro: AAOx4, PERRLA, no aphagia, memory changes, CNII-XII grossly intact HEENT: head normocephalic, moist mucus membranes CV: S1/S2, (-) M/G/R, (-) edema, cap refill < 3 seconds Resp: Lungs CTA in all gonzalez. On RA GI: Abdomen S/NT/ND, Ax4 bowel sounds, (-) CVA tenderness Musculoskeletal: 5/5 B/L UE strength, 5/5 B/L LE strength. No gait disturbance Skin: (-) rashes , (-) erythema. Bilateral LE swelling +2 pitting edema. (-) erythema or ecchymosis. Psych: euthymic mood Results & Data Vital Signs (Past 12 Hours) Vital Signs Temp Pulse Pulse Resp BP BP BP 11/17/23 17:09 36.8 C 71 16 115/66 11/17/23 16:01 70 16 112/72 11/17/23 14:12 66 11/17/23 13:00 65 14 119/72 11/17/23 11:07 66 14 148/78 H 11/17/23 09:35 73 16 126/63 11/17/23 09:22 80 11/17/23 09:14 81 16 11/17/23 09:14 81 16 107/68 11/17/23 09:02 36.7 C 82 20 116/68 Pulse Ox O2 Del Method 11/17/23 17:09 95 Room Air 11/17/23 16:01 96 Room Air 11/17/23 14:12 11/17/23 13:00 96 Room Air 11/17/23 11:07 97 Room Air 11/17/23 09:35 96 Room Air 11/17/23 09:22 11/17/23 09:14 96 Room Air 11/17/23 09:14 96 Room Air 11/17/23 09:02 96 Room Air Laboratory Results Short CBC 11/17/23 Range/Units 09:30 WBC 3.55 L (4.8-10.8) K/ul Hgb 8.9 L (12.0-16.0) g/dl Hct 27.4 L (37.0-47.0) % Plt Count 70 L (130-400) K/uL BMP 11/17/23 09:30 Sodium 137 Potassium 3.4 L Chloride 106 Carbon Dioxide 28 BUN 20 Creatinine 0.68 Glucose 97 Calcium 7.6 L Liver Function 11/17/23 Range/Units 09:30 Total Bilirubin 4.3 H (0.2-1.0) mg/dl AST 36 (13-39) U/L ALT 14 (7-52) U/L Alkaline Phosphatase 108 H (34-104) U/L Albumin 2.6 L (3.4-5.0) gm/dl Urine 11/17/23 Range/Units 10:45 Urine Color Yellow Urine Appearance Clear (Clear) Urine pH 6.0 (4.5-7.5) Ur Specific [place] 1.009 (1.000-1.030) Urine Protein Negative (Negative) Urine Glucose (UA) Negative (Negative) Diagnostic Findings Venous Doppler Study 11/17/23 09:25 US venous doppler LE RT HISTORY: 68 years-old Female swelling, eval DVT acute pain and swelling of the right lower leg COMPARISON: None TECHNIQUE: Multiple real-time sonographic images of the right lower extremity deep venous structures were obtained assessing grayscale appearance, color and spectral flow. FINDINGS: Normal flow, compressibility, phasicity and augmentation. Subcutaneous edema limits the study. IMPRESSION: No sonographic evidence of deep venous thrombosis. ACT 112: Negative or not required by law. The above report was generated using voice recognition software. It may contain grammatical, syntax or spelling errors. Electronically signed by: Philippe Sosa M.D. 11/17/2023 10:14 AM
[2023-11-17] MEDS: LACTATED RINGER'S 1,000 ML IV SCH (18:29)
[2023-11-17] MEDS: POTASSIUM CHLORIDE CRTAB 20 MEQ TABCR PO SCH (18:38)
[2023-11-17] MEDS: FUROSEMIDE 40 MG/4 ML VIAL IV SCH (18:38)
[2023-11-17] MEDS ORDERED: ZINC ACETATE 50 MG PO SCH (21:00)
[2023-11-17] MEDS: dexAMETHasone 8 MG in SYRINGE 0 ML IV SCH (21:55)
[2023-11-18] MEDS: ASPIRIN 81 MG ECTAB PO SCH (08:19)
[2023-11-18] MEDS: CYANOCOBALAMIN (B-12) 2,500 MCG TABLET PO SCH (08:20)
[2023-11-18] MEDS: CHOLECALCIFEROL 125 MCG (5,000 UNITS) TAB PO SCH (08:20)
[2023-11-18] MEDS ORDERED: FUROSEMIDE 40 MG TAB PO SCH (09:00)
[2023-11-18] MEDS ORDERED: NON-FORMULARY MEDICATION (Potassium 99 mg Tablet) PO SCH (09:00)
[2023-11-18] MEDS ORDERED: NON-FORMULARY MEDICATION (Ferrous Sulfate 27 mg iron Tablet) PO SCH (09:00)
[2023-11-18] MEDS ORDERED: POTASSIUM CHLORIDE CRTAB 20 MEQ TABCR PO SCH (09:00)
--- NOTE | 2023-11-18 09:39 | History & Physical Report ---
Date of Service November 18, 2023 Assessment & Plan (1) Postoperative back pain: Plan: Patient is responding to anti-inflammatories. Will initiate physical therapy today and possible discharge home tomorrow. Admission and Anticipated Discharge Date Admission Date: November 17, 2023 History of Present Illness Chief Complaint: Patient's leg symptoms are markedly improved this morning. Primary Care Provider: Ramirez Lilly MD Patient states that her right leg symptoms have improved from admission yesterday. She has considerable concern regarding a blood clot. The Dopplers were negative. This morning she is ready to begin physical therapy. Allergies Allergy/AdvReac Type Severity Reaction Status Date / Time No Known Allergies Allergy Verified 11/17/23 11:10 Home Medications Medication Instructions Recorded Confirmed Type zinc acetate 50 mg (zinc) capsule 50 mg PO BID 01/14/23 11/17/23 History (Galzin) cholecalciferol (vitamin D3) 125 125 mcg PO QAM 01/22/23 11/17/23 History mcg (5,000 unit) tablet (Vitamin D3) cyanocobalamin (vitamin B-12) 2,500 mcg PO QAM 01/22/23 11/17/23 History 2,500 mcg tablet cyclobenzaprine 10 mg tablet 10 mg PO TID PRN Pain 01/22/23 11/17/23 History ferrous sulfate 27 mg iron tablet 27 mg PO QAM 01/22/23 11/17/23 History potassium 99 mg tablet 99 mg PO QAM 01/22/23 11/17/23 History furosemide 20 mg tablet 40 mg PO QAM 10/11/23 11/17/23 History oxycodone 5 mg tablet 5 mg PO Q6H PRN pain #30 tabs 11/12/23 11/17/23 Rx tramadol 50 mg tablet 50 mg PO Q6H PRN pain, moderate 11/12/23 11/17/23 Rx #30 tabs aspirin 81 mg tablet,delayed 0 mg PO DAILY 11/17/23 11/17/23 History release Past Med/Surg History Problem List Postoperative back pain (Acute) Right leg swelling (Acute) S/P spinal surgery Neurogenic claudication due to lumbar spinal stenosis Cirrhosis Portal hypertension NAFLD (nonalcoholic fatty liver disease) Medical History Systolic murmur Thrombocytopenia Hx of iron deficiency anemia has had 2 iron infusions in the past Hx of portal hypertension NAFLD (nonalcoholic fatty liver disease) Cirrhosis follows with [facility] Arthritis Hx of deep venous thrombosis (~2019) left foot s/p hip surgery (was on blood thinner for 6 months) Heart murmur 01/2023; f/u dr. miranda, cardio (first seen in [place], dr moved to [place] now) Surgical History History of open reduction and internal fixation (ORIF) procedure right femur Hx of tooth extraction all top teeth-wears top denture History of bladder surgery sling History of hip surgery left side>repaired after fx History of cholecystectomy History of appendectomy H/O abdominal surgery removed sac formed in abdominal region with cauterization *long time ago [place] teeth removed History of cataract surgery rt/left Nausea and vomiting after administration of anesthetic agent denies needing scop patch H/O colonoscopy History of esophagogastroduodenoscopy (EGD) H/O gastric bypass 2014 *lost 135lbs Family History Mother Dementia Son Crohn's disease Other Heart disease No family history of adverse response to anesthesia Denies family history of Colorectal cancer Ulcerative colitis Social History Smoking Status: Never smoker Second Hand Exposure: No; Do You Dip or Chew Tobacco: No; Hx Alcohol Use: Yes Hx Substance Use: No Preferred Language: Occitan Communication Ability: Effective Medical Parasitologist Required: No Beliefs That Will Affect Care: None Current Living Situation: Spouse Other Information That Helps Us Care for You: No Feels Safe at Home: Yes Safety Concerns: Feels Safe At This Time Assistive Devices: Denture - Upper and Walker Physical Exam Physical Exam: On exam patient sits up without difficulty. Incision is clean dry and intact. She has excellent strength testing lower extremities. Sensory is intact. Results & Data Results & Data Vital Signs (Past 12 Hours) Vital Signs Temp Pulse Resp BP Pulse Ox O2 Del Method 11/18/23 07:12 36.4 C L 69 16 128/70 95 Room Air 11/17/23 21:57 36.8 C 71 16 104/55 L 92 Room Air Code Status & VTE Plan VTE Prophylaxis Plan VTE Prophylaxis will be ordered: Yes
[2023-11-18 10:25] LABS: BUN Creatinine Ratio 28.6 (10-20); Calcium 8.6 mg/dl (8.6-10.3); Creatinine Clr Calc Pharmacy 104.4 ml/min; Est GFR (African American) 105.3 ml/min; Est GFR (Non-African American) 90.9 ml/min; Potassium 3.9 mmol/L (3.5-5.1)
--- NOTE | 2023-11-18 16:05 | Hospitalist Progress Note ---
Date of Service November 18, 2023 Assessment & Plan (1) Neurogenic claudication due to lumbar spinal stenosis: (2) NAFLD (nonalcoholic fatty liver disease): (3) S/P spinal surgery: (4) Right leg swelling: (5) Cirrhosis: Plan Ms. Arias is a 68 year old female that presents to the ED today with leg swelling and numbness. She recently underwent back surgery under the care of Dr. alexander on 11/10 s/p decompression and fusion surgery of L2-3, L3-4, and L4-5. Neurogenic Claudication due to lumbar spinal stenosis: S/P revision decompression fusion L2-L3, L3-L4 and L4-5, posterior spinal fusion L3-5, please posttransplantation L3-L5, interbody fusion L4-[address] Alexander On 11/11/2023 Post op Acute blood loss anemia Thrombocytopenia Pain control, wound care, activity as per primary team. Monitor CBC Pain is controlled Bowel regimen to prevent constipation Continue PT OT Bilateral lower extremity edema H/O cirrhosis on diuretics --Venous Doppler:No sonographic evidence of deep venous thrombosis. Likely due to holding home diuretics for surgery Continue IV Lasix Monitor volume status Hypokalemia Replete electrolytes as needed Monitor Cirrhosis: NAFLD (nonalcoholic fatty liver disease): Portal hypertension: Follows with [facility] 2g sodium restriction Continue diuretics as above Will recommend to follow-up with GI on discharge Systolic murmur: May 2023 echo with EF 55-60% and mild TR, AV sclerosis but no stenosis, diast olic dysfunction. Dr. Rowe of [place] cards reviewed, recommends aspirin 81mg daily Monitor Thrombocytopenia Likely due to liver disease Monitor platelet count DVT Px: SCDs per Primary Team Code status: FULL CODE Admission and Anticipated Discharge Date Admission Date: November 17, 2023 Subjective Patient is seen and examined at bedside States feeling well today Reports bilateral leg edema Back pain at surgical site is controlled Denies any chest pain, dyspnea, nausea, vomiting, abdominal pain No other complaints Review of Systems Review of Systems: All systems reviewed & are unremarkable except as noted in Subjective Physical Exam Physical Exam: Physical Exam: Vitals signs as noted above General Appearance:Moderately built and nourished, no apparent distress Head: normocephalic, Atraumatic Eyes: normal inspection, EOMI Neck: supple, Trachea midline Respiratory/Chest: Normal breath sounds, CTA, No accessory muscle use Cardiovascular: S1, S2, No murmur Abdomen/GI:Soft, Non tender, Bowel sounds present Back: Surgical site in dressing Extremities/Musculoskeletal:normal inspection, B/L 2-3+ LE edema Neurologic/Psych:AAOX3, grossly no focal neurological deficits Skin: normal color, warm Results & Data Results & Data Vital Signs (Past 12 Hours) Vital Signs Temp Pulse Resp BP Pulse Ox O2 Del Method 11/18/23 08:30 Room Air 11/18/23 07:12 36.4 C L 69 16 128/70 95 Room Air Laboratory Results [facility] 11/18/23 09:40 Sodium 137 Potassium 3.9 Chloride 104 Carbon Dioxide 26 BUN 18 Creatinine 0.63 Glucose 227 H Calcium 8.6
[2023-11-18] MEDS: POTASSIUM CHLORIDE 10 MEQ TABCR PO SCH (20:45)
[2023-11-19] MEDS: oxyCODONE HCL IR 5 MG TAB (IMMEDIATE RELEASE) PO PRN (05:46)
[2023-11-19 08:20] LABS: Hematocrit (blood only) 29.3 % (37.0-47.0); Hemoglobin 9.6 g/dl (12.0-16.0); Mean Corpuscular Hemoglobin 32.4 pg (25.0-34.0); Mean Corpuscular Hgb Conc 32.8 g/dL (32.0-36.0); Mean Platelet Volume 10.4 fL (9.4-12.4); Platelet Count 107 K/uL (130-400); RDW Coefficient of Variation 17.1 % (11.5-14.5); RDW Standard Deviation 61.6 fL (36.4-46.3); Red Blood Count 2.96 M/uL (4.20-5.40); White Blood Count 12.68 K/ul (4.8-10.8)
[2023-11-19 08:46] LABS: Albumin Globulin Ratio 1.1 (0.9-2); Albumin Level 2.9 gm/dl (3.4-5.0); BUN Creatinine Ratio 35.5 (10-20); Bilirubin,Total 3.5 mg/dl (0.2-1.0); Calcium 8.1 mg/dl (8.6-10.3); Creatinine Clr Calc Pharmacy 105.8 ml/min; Est GFR (African American) 105.9 ml/min; Est GFR (Non-African American) 91.4 ml/min; Globulin 2.7 gm/dl (2.5-4.0); Magnesium 1.9 mg/dl (1.7-2.4); Potassium 3.9 mmol/L (3.5-5.1); Total Protein 5.6 gm/dl (6.0-8.3)
--- NOTE | 2023-11-19 12:36 | Discharge Summary ---
Date of Service November 19, 2023 Admission HPI Per Admitting Provider Patient states that her right leg symptoms have improved from admission yesterday. She has considerable concern regarding a blood clot. The Dopplers were negative. This morning she is ready to begin physical therapy. Principal Diagnosis Lumbar spinal stenosis with neurogenic claudication Discharge Data Allergies Allergy/AdvReac Type Severity Reaction Status Date / Time No Known Allergies Allergy Verified 11/17/23 11:10 Consultations 11/17/23 17:09 Consult Internal Medicine Routine Ordered Studies 11/17/23 09:25 US venous doppler LE RT Stat Hospital Course (1) Postoperative back pain: Patient was admitted to hospital for some postoperative back and leg pain. Over the course of 24 hours she improved substantially. Tolerated physical therapy. Pain well-controlled. Excellent strength testing. Subsidy discharged home. Discharge orders instructions are on the chart for further review. Total Time Total Time Spent Total Time Spent (In Minutes): 20 minutes Discharge Plan Discharge Items Patient Disposition: Home - Self-Care Reason For Visit: POST OP Discharge Diagnosis: Postoperative back pain Activity: As commented below Non-emergency contact: Primary Care Provider Call non-emergency contact if: you have any medication questions Follow-up/Referrals: Ramirez Lilly MD [Primary Care Provider] - Diet: Regular Addtl Attending Provider Instructions: ACTIVITY RECOMMENDATIONS: SELF CARE INSTRUCTIONS AFTER THORACIC/LUMBAR FUSIONS 1. You may walk to your tolerance. It is good exercise for your legs and back. Expect some back and intermittent leg aches and pains. 2. You may perform "counter-top" level activities (make a sandwich, laura with a project, etc.). 3. No bending or lifting of more than 10 pounds or back twisting of any nature (roll like a log when turning in bed). 4. You may ride in a car for 20-30 minutes at a time. No driving until after your first visit with your doctor. 5. Frequent changes of position and restricting sitting to 30 minutes at a time will help limit the amount of back spasms and stiffness you may experience. 6. You may discontinue the use of ambulatory aids (cane, crutches, etc.) once your strength and confidence allow. 7. You may bowling alley operator the shower and let water strike your incision when you arrive home at least once daily. Do not take a tub bath, sit in a hot tub or go into a swimming pool until after your first recheck in the office. SPECIAL CARE INSTRUCTIONS: VERY IMPORTANT TO READ AND REVIEW A. Your surgical incision has been closed with a cosmetic suture under the skin that will dissolve in about 6 weeks. In 14 days, you can use a pair of clean scissors and cut the suture that is left outside of the skin at the ends of your incision. 1. The small skin tapes can be removed 7 days after surgery if they have not fallen off by that point. 2. You may keep the wound open to air as much as possible to promote healing after post-op day number 5 unless told otherwise by your doctor. 3. If you think the wound looks like it is becoming infected (redness or worsening drainage) and/or you are experiencing fever, chill or worsening back pain and muscle spasms, contact the office so that we may evaluate you as soon as possible. B. Complications are uncommon, but please contact us if you have any signs or symptoms of: 1. wound infection (fever higher than 102.5 degrees F, redness, separation of wound, drainage, or increasing pain from the incision) 2. blood clots in legs (pain, swelling, redness and warmth in legs) 3. urinary tract infection (fever higher than 102.5 degrees F, burning upon urination or increased frequency of urination) 4. nerve problems (inability to walk on your toes or heels, numbness, loss of bowel or bladder control) 5. any other symptoms that concern you C. Please call the office at if you have any concerns or questions about your operation or recovery. D. No smoking! Smoking drastically decreases the chance of a solid fusion. E. Do not take any anti-inflammatory medications (Indocin, Advil, Motrin, Aspirin, Naprosyn, etc.) as these may inhibit the chance of a solid fusion. Ty lenol is okay to take for pain. MANAGING PAIN AFTER SPINAL SURGERY 1. Narcotic medication is intended for short-term use and will be provided for surgical pain. Surgical pain usually lasts for a period of 4-6 weeks. Narcotic medication includes Percocet, Vicodin, Darvocet, Tylenol #3 or Lortab. 2. Longer-term pain is more appropriately treated with non-narcotic medication such as Tylenol ES. 3. Muscle spasm is not appropriately treated with narcotics. Muscle relaxers such as Soma, Flexeril or Skelaxin can be used along with Tylenol ES. 4. Remember that we all live with some "aches and pains". This is not unusual or uncommon after an injury or as we get older. a. Back pain is expected and may include muscle spasms for 4 to 6 weeks after surgery. The pain should gradually improve. If the pain worsens for no apparent reason, please contact the office. b. Intermittent leg pain may also be experienced and should not be concerned about unless it worsens for no apparent reason. If so, please contact the office. 5. We will provide appropriate medication within the normal guidelines of their prescribed use. We will also be very cautious and aware of potential abuse and extended duration of patients' medication needs. a. Pain medications are for your comfort and to assist with sleep and rest so that the tissue can heal. They are not provided in order to return to normal activity and should not be used through the day. To do so or worsening pain at night can result from ongoing tissue damage and development of tolerance to the prescribed medicine. 6. Please allow 2-3 days to process refills. Prescriptions will not be mailed but must be picked up at the office. FOLLOW UP VISIT: Keep your scheduled follow-up appointment. Any questions, please call the office at . Pending Studies at Discharge: No Stand-Alone Forms: [facility], Smoking Cessation Medications and DC Order Prescriptions: Continued Galzin 50 mg (zinc) capsule 50 mg PO BID cyclobenzaprine 10 mg Tablet 10 mg PO TID PRN (Reason: Pain) potassium 99 mg Tablet 99 mg PO QAM ferrous sulfate 27 mg iron Tablet 27 mg PO QAM cholecalciferol (vitamin D3) [Vitamin D3] 125 mcg (5,000 unit) Tablet 125 mcg PO QAM cyanocobalamin (vitamin B-12) 2,500 mcg Tablet 2,500 mcg PO QAM furosemide 20 mg tablet 40 mg PO QAM tramadol 50 mg tablet 50 mg PO Q6H PRN (Reason: pain, moderate) Qty: 30 0RF oxycodone 5 mg tablet 5 mg PO Q6H PRN (Reason: pain) Qty: 30 0RF aspirin 81 mg Tablet,Delayed Release (Dr/Ec) 0 mg PO DAILY Rx Instructions: Patient usually takes 81mg daily, but couldn't find it on 11/17/23, so she took 325mg instead. Discharge Orders: Discharge Order (Routine); Ordered 11/19/23 Ordered By: Zia Alexander Admission Data Admit Date/Time: 11/17/23 13:03 Attending Provider: Zia Alexander Admit Provider: Zia Alexander Primary Care Provider: Ramirez Lilly Other Providers: Debby Harris
[2023-11-19] MEDS ORDERED: bisacodyL 10 MG SUPP PR PRN (13:00)
--- NOTE | 2023-11-19 14:17 | Hospitalist Progress Note ---
Date of Service November 19, 2023 Assessment & Plan (1) Neurogenic claudication due to lumbar spinal stenosis: (2) NAFLD (nonalcoholic fatty liver disease): (3) S/P spinal surgery: (4) Right leg swelling: (5) Cirrhosis: Plan Ms. Arias is a 68 year old female that presents to the ED today with leg swelling and numbness. She recently underwent back surgery under the care of Dr. alexander on 11/10 s/p decompression and fusion surgery of L2-3, L3-4, and L4-5. Neurogenic Claudication due to lumbar spinal stenosis: S/P revision decompression fusion L2-L3, L3-L4 and L4-5, posterior spinal fusion L3-5, please posttransplantation L3-L5, interbody fusion L4-[address] Alexander On 11/11/2023 Post op Acute blood loss anemia- hemoglobin remains stable at 9.617 3024 Thrombocytopenia- has improved to 107 as of 11/19/2023 Pain control, wound care, activity as per primary team. Bowel regimen to prevent constipation Continue PT OT remains medically stable to be discharged by the primary team today Bilateral lower extremity edema H/O cirrhosis on diuretics --Venous Doppler:No sonographic evidence of deep venous thrombosis. Likely due to holding home diuretics for surgery received intravenous Lasix while in the hospital no evidence of fluid overload she will be discharged on home dose of diuretic Hypokalemia Replete electrolytes as needed potassium has been corrected Cirrhosis: NAFLD (nonalcoholic fatty liver disease): Portal hypertension: Follows with [facility] 2g sodium restriction Continue diuretics as above Will recommend to follow-up with GI on discharge Systolic murmur: May 2023 echo with EF 55-60% and mild TR, AV sclerosis but no stenosis, diastolic dysfunction. Dr. Rowe of [place] cards reviewed, recommends aspirin 81mg daily Monitor no shortness of breath and no chest pain Thrombocytopenia Likely due to liver disease Monitor platelet count- improving and at 107 as of 11/19/2023 DVT Px: SCDs per Primary Team Code status: FULL CODE Admission and Anticipated Discharge Date Admission Date: November 17, 2023 Subjective 11/19/2023 The patient was seen and examined in medical floor She complains to minimal pain at the back Her leg swelling has been improving and denies any leg pain or any shortness of breath She denies any other symptoms Review of Systems Review of Systems: all systems reviewed and are unremarkable except as noted below Physical Exam Physical Exam: lying in bed without any acute distress Constitutional: well developed, well nourished and + obese; not ill appearing Eyes: PERRL, conjunctivae normal, anicteric sclerae ENMT: external ear and nose normal, oropharynx normal Neck: trachea midline, no thyromegaly Respiratory: no respiratory distress Auscultation: + lungs not clear to auscultation Cardiovascular: Rate/Rhythm: regular rate and regular rhythm; not tachycardic Heart Sounds: normal S1, normal S2 and + murmur ( 2/6 ESM over precordium) Gastrointestinal (Abdomen): Inspection/Auscultation: normal bowel sounds; abdomen not distended Percussion/Palpation: abdomen soft; abdomen nontender Musculoskeletal: no acute arthritis involving any of the joint Neurologic: normal touch/pain/proprioception and moves all extremities; no focal motor deficits Psychiatric: A+Ox3, euthymic affect Lymphatic: no cervical or axillary lymphadenopathy Results & Data Results & Data Vital Signs (Past 12 Hours) Vital Signs Temp Pulse Resp BP Pulse Ox O2 Del Method 11/19/23 07:38 36.5 C 63 16 124/75 96 Room Air Laboratory Results Short CBC 11/19/23 Range/Units 07:48 WBC 12.68 H (4.8-10.8) K/ul Hgb 9.6 L (12.0-16.0) g/dl Hct 29.3 L (37.0-47.0) % Plt Count 107 L D (130-400) K/uL BMP 11/19/23 07:48 Sodium 142 Potassium 3.9 Chloride 108 H Carbon Dioxide 31 BUN 22 Creatinine 0.62 Glucose 105 H Calcium 8.1 L Liver Function 11/19/23 Range/Units 07:48 Total Bilirubin 3.5 H (0.2-1.0) mg/dl AST 28 (13-39) U/L ALT 13 (7-52) U/L Alkaline Phosphatase 112 H (34-104) U/L Albumin 2.9 L (3.4-5.0) gm/dl
== END 2023-11-19 13:18 | disposition home or self-care (01) | DRG 948 ==
LOC: ED 08:55 → 3N 13:03

== ENCOUNTER 2024-12-30 20:01 | Observation (INO) ==
[2024-12-30 20:50] LABS: Hematocrit (blood only) 31.7 % (37.0-47.0); Hemoglobin 11.0 g/dl (12.0-16.0); Immature Granulocytes # (auto) 0.01 K/uL (0.01-0.20); Immature Granulocytes % (auto) 0.2 %; Mean Corpuscular Hemoglobin 34.6 pg (25.0-34.0); Mean Corpuscular Volume 99.7 fL (80.0-100.0); Platelet Count 68 K/uL (130-400); RDW Standard Deviation 55.1 fL (36.4-46.3); Red Blood Count 3.18 M/uL (4.20-5.40); White Blood Count 5.20 K/ul (4.8-10.8)
[2024-12-30 21:09] LABS: Alanine Aminotransferase 29 U/L (7-52); Albumin Globulin Ratio 0.8 (0.9-2); Alkaline Phosphatase 197 U/L (34-104); Bilirubin,Total 4.2 mg/dl (0.2-1.0); Blood Urea Nitrogen 17 mg/dl (6-23); Calcium 8.3 mg/dl (8.6-10.3); Carbon Dioxide 27 mmol/L (21-32); Globulin 3.4 gm/dl (2.5-4.0); Glucose 108 mg/dl (70-99(Fasting)); Magnesium 1.6 mg/dl (1.7-2.4); Total Protein 6.2 gm/dl (6.0-8.3)
[2024-12-30 21:25] LABS: Thyroid Stimulating Hormone 1.658 uIu/ml (0.300-4.500)
[2024-12-30 21:32] LABS: INR 1.3 (0.9-1.1); Partial Thromboplastin Time 30 Seconds (21-31); Prothrombin Time 14.0 Seconds (9.0-12.0)
[2024-12-30 21:47] LABS: Procalcitonin 0.25 ng/ml (0-0.5)
[2024-12-30 22:12] LABS: Lyme Screen Rflx Confirmation Negative (Negative)
[2024-12-30 22:17] LABS: Anion Gap 6 (3-11); Chloride 106 mmol/L (98-107); Potassium 4.0 mmol/L (3.5-5.1); Sodium 139 mmol/L (136-145)
--- NOTE | 2024-12-30 22:18 | Emergency Department Note ---
Impression & Plan Generalized weakness, Acute UTI (urinary tract infection), Hypomagnesemia ED Provider Note HISTORY OF PRESENT ILLNESS: Patient is a 69-year-old female presenting with weakness. helps provide history. Reports that the patient had gone about her day like normal today, but this evening has been having significant difficulties getting around. He reports that patient is normally ambulatory without any assistive devices, and since earlier this evening she has been unable to walk without his assistance. Patient reports that both of her legs feel very weak. He states that him and his son were able to get her to bed, but the patient was unable to get her legs up into the bed on her own. She is complaining of left lower quadrant abdominal pain that started recently in the last few days. Reports the pain is worse at night when she tries to sleep. No reported fevers at home, but the patient has had significant chills and the reports that on the way here to the hospital the patient was wearing her winter coat in the heat was on in the car. Patient denies any nausea or vomiting. Denies any diarrhea. Denies any chest pain or shortness of breath. Denies any recent falls. Denies any numbness or tingling down her legs. Denies any headache or changes in vision. Abdominal surgical history significant for an appendectomy and cholecystectomy. Patient any dysuria or hematuria. ROS: as above PHYSICAL EXAM: Constitutional: Patient appears in no acute distress. HENT: Head: Normocephalic and atraumatic. Eyes: EOMI, PERRL Mouth/Throat: Mucous membranes moist. Neck: Trachea midline. Neck supple. Cardiovascular: RRR, No murmurs, rubs or gallops. Intact distal pulses. Pulmonary/Chest: No respiratory distress. Breath sounds clear and equal bilaterally. No wheezes or rales. Abdominal: Abdomen soft, no rebound or guarding. LLQ TTP Back: No midline spinal tenderness, no paraspinal tenderness, no CVA tenderness. Patient is able to straight leg raise bilaterally. Musculoskeletal: No edema, tenderness or deformity noted. Skin: Warm and dry. No rash, erythema, pallor or cyanosis Psychiatric: Appropriate mood and affect for situation. Neurological: Alert and keenly responsive. CN II-XII grossly intact, moving all extremities equally and fully. MDM: - Vitals signs showed fever - History obtained via patient. History as above. - Chronic conditions affecting care: portal HTN; cirrhosis; neurogenic claudication; nonalcoholic fatty liver disease; thrombocytopenia - Differential diagnoses include, but are not limited to: UTI; pneumonia; CVA; intracranial hemorrhage; cauda equina; Guillain-Lorenz - Order placed for continuous cardiac monitoring. At this time, monitor showed rate of 71 bpm with normal sinus rhythm, per my interpretation. - External medical records reviewed - EKG image interpreted by myself showed normal sinus rhythm. Rate 77 bpm. QT 426. No acute ischemic changes. - Laboratory workup interpreted by myself showed normal WBC; chronic thrombocytopenia (plt 68); elevated INR (1.3); normal procalcitonin; stable electrolytes other than slight hypomagnesemia (Mg 1.6); chronic hyperbilirubinemia (total bilirubin 4.2); normal troponin; normal TSH - Negative Lyme, anaplasmosis, babesia - CXR image reviewed by myself was negative for pneumonia, per my interpretation. - CT head wo contrast negative for acute pathology - CT abdomen/pelvis with IV contrast showed signs of cirrhosis including nodular liver surface, esophageal varices, splenorenal shunt and recanalized periumbilical vein. Bowel loops are nondilated. - Patient is able to use her lower extremities with straight leg raise. She has no midline back pain. Do feel that potential spinal pathology is less likely. Blood cultures were obtained and further infectious workup is warranted. Given patient's weakness and inability to get around like normal, will admit to hospitalist service. - UA does show evidence of infection. IV Rocephin ordered. - Discussion was had with porter sample case about patient's case and need for admission - Hospitalist consulted for admission - Patient admitted to [facility] hospitalist service for further evaluation and management. ASSESSMENT AND PLAN: Diagnosis: Generalized weakness; hypomagnesemia; acute UTI Plan: Admit Past Med/Surg History Problem List (Updated 12/31/24 @ 01:31 by Macey Moreno MD) Hypomagnesemia (Acute) Acute UTI (urinary tract infection) (Acute) Generalized weakness (Acute) History of diverticulitis Diarrhea Postoperative back pain (Acute) Right leg swelling (Acute) S/P spinal surgery Neurogenic claudication due to lumbar spinal stenosis Cirrhosis Portal hypertension NAFLD (nonalcoholic fatty liver disease) Medical History History of diverticulitis no hospitalizations - no current issues Systolic murmur Thrombocytopenia Hx of iron deficiency anemia has had 2 iron infusions in the past Hx of portal hypertension NAFLD (nonalcoholic fatty liver disease) as per patient following with Demi Price "liver doctor" - did see [facility] 05/2024 Cirrhosis as per patient following with Demi Price "liver doctor" - did see [facility] 05/2024 Arthritis Hx of deep venous thrombosis (~2019) left foot s/p hip surgery (was on blood thinner for 6 months) Heart murmur 01/2023; f/u dr. miranda, cardio "nothing of concern" as per patient Surgical History History of lumbar surgery (10/2023) Hardware present History of open reduction and internal fixation (ORIF) procedure right femur Hx of tooth extraction all top teeth-wears top denture History of bladder surgery sling History of hip surgery left side>repaired after fx History of cholecystectomy History of appendectomy H/O abdominal surgery removed sac formed in abdominal region with cauterization *long time ago Ramsay teeth removed History of cataract surgery Bilateral Nausea and vomiting after administration of anesthetic agent denies needing scop patch H/O colonoscopy History of esophagogastroduodenoscopy (EGD) H/O gastric bypass 2014 *lost 135lbs Family History Mother Dementia Son Crohn's disease Other Heart disease No family history of adverse response to anesthesia Denies family history of Colorectal cancer Ulcerative colitis Social History Smoking Status: Never smoker Second Hand Exposure: No; Do You Dip or Chew Tobacco: No; Hx Alcohol Use: No Hx Substance Use: No Preferred Language: Tajik Communication Ability: Effective 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 Beliefs That Will Affect Care: None Current Living Situation: Spouse Feels Safe at Home: Yes Assistive Devices: Denture - Upper and Denture - Lower Allergies Allergies Allergy/AdvReac Type Severity Reaction Status Date / Time No Known Allergies Allergy Verified 09/07/24 09:56 Home Meds Home Medications Medication Instructions Recorded Confirmed ferrous sulfate 27 mg iron tablet 27 mg PO QAM 01/22/23 09/07/24 potassium 99 mg tablet 99 mg PO QAM 01/22/23 09/07/24 aspirin 81 mg tablet,delayed 81 mg PO QAM 11/17/23 09/07/24 release furosemide 20 mg tablet (Lasix) 20 mg PO QAM 08/18/24 09/07/24 lactulose 10 gram/15 mL oral 30 g PO BID 08/18/24 09/07/24 solution zinc 100 mg tablet 200 mg PO QAM 08/18/24 09/07/24 Previous Rx's Medication Instructions Recorded carvedilol 3.125 mg tablet 3.125 mg PO BID #60 tabs 08/31/24 Results & Data (ED) Vital Signs Vital Signs - 24 hr 12/30/24 20:20 12/30/24 22:25 12/30/24 23:01 Temperature 38.0 C H Temperature Source Oral Pulse Rate 83 68 Pulse Rate [Finger] 71 Pulse Rhythm [Finger] Regular Pulse Strength [Finger] Normal Respiratory Rate 18 20 Respiratory Effort / Characteristics Non-Labored Spontaneous Non-Labored Spontaneous Respiratory Depth Normal Normal Respiratory Pattern Regular Blood Pressure 107/62 Blood Pressure [Right Arm] 132/59 L Blood Pressure Mean 77 Blood Pressure Mean [Right Arm] 83 Blood Pressure Position Sitting Blood Pressure Position [Right Arm] Lying Pulse Oximetry 98 99 Oxygen Delivery Method Room Air Room Air Sepsis Recent Fever Within 48 Hours No Sepsis New/Unexplained Change in Mental Status N/A Sepsis Action Taken by Nursing No Action Required 12/30/24 23:01 Temperature Temperature Source Pulse Rate Pulse Rate [Finger] Pulse Rhythm [Finger] Pulse Strength [Finger] Respiratory Rate Respiratory Effort / Characteristics Respiratory Depth Respiratory Pattern Blood Pressure Blood Pressure [Right Arm] Blood Pressure Mean Blood Pressure Mean [Right Arm] Blood Pressure Position Blood Pressure Position [Right Arm] Pulse Oximetry Oxygen Delivery Method Room Air Sepsis Recent Fever Within 48 Hours Sepsis New/Unexplained Change in Mental Status Sepsis Action Taken by Nursing Laboratory Data 12/30/24 20:33 12/30/24 20:33 Lab Results 12/30/24 12/30/24 12/30/24 Range/Units 20:33 20:55 23:19 WBC 5.20 (4.8-10.8) K/ul RBC 3.18 L (4.20-5.40) M/uL Hgb 11.0 L (12.0-16.0) g/dl Hct 31.7 L (37.0-47.0) % MCV 99.7 (80.0-100.0) fL MCH 34.6 H (25.0-34.0) pg MCHC 34.7 (32.0-36.0) g/dL RDW Std Deviation 55.1 H (36.4-46.3) fL RDW Coeff of Rene 14.9 H (11.5-14.5) % Plt Count 68 L (130-400) K/uL MPV 11.2 (9.4-12.4) fL Immature Gran % (Auto) 0.2 % Neut % (Auto) 79.8 % Lymph % (Auto) 9.2 % [place] % (Auto) 9.6 % Eos % (Auto) 0.6 % Baso % (Auto) 0.6 % Neut # (Auto) 4.15 (1.40-6.50) K/uL Lymph # (Auto) 0.48 L (1.20-3.40) K/uL [place] # (Auto) 0.50 (0.11-0.59) K/uL Eos # (Auto) 0.03 (0.00-0.50) K/uL Baso # (Auto) 0.03 (0.00-0.20) K/uL Immature Gran # (Auto) 0.01 (0.01-0.20) K/uL PT 14.0 H (9.0-12.0) Seconds INR 1.3 H (0.9-1.1) APTT 30 (21-31) Seconds PTT Ratio 1.1 Sodium 139 (136-145) mmol/L Potassium 4.0 (3.5-5.1) mmol/L Chloride 106 (98-107) mmol/L Carbon Dioxide 27 (21-32) mmol/L Anion Gap 6 (3-11) BUN 17 (6-23) mg/dl Creatinine 0.73 (0.6-1.2) mg/dl Est Cr Clr Drug Dosing Not Reportable eGFR 87.87 BUN/Creatinine Ratio 23.3 H (10-20) Glucose 108 H (70-99(Fasting)) mg/dl Lactate 1.6 (0.4-2.0) mmol/L Calcium 8.3 L (8.6-10.3) mg/dl Magnesium 1.6 L (1.7-2.4) mg/dl Total Bilirubin 4.2 H (0.2-1.0) mg/dl AST 66 H (13-39) U/L ALT 29 (7-52) U/L Alkaline Phosphatase 197 H (34-104) U/L Troponin I High Sens 9.5 (0-14) pg/ml Total Protein 6.2 (6.0-8.3) gm/dl Albumin 2.8 L (3.4-5.0) gm/dl Globulin 3.4 (2.5-4.0) gm/dl Albumin/Globulin Ratio 0.8 L (0.9-2) Procalcitonin 0.25 (0-0.5) ng/ml TSH 1.658 (0.300-4.500) uIu/ml Urine Color Urine Appearance (Clear) Urine pH (4.5-7.5) Ur Specific [place] (1.000-1.030) Urine Protein (Negative) Urine Glucose (UA) (Negative) Urine Ketones (Negative) Urine Blood (Negative) Urine Nitrite (Negative) Urine Bilirubin (Negative) Urine Urobilinogen (Negative) Ur Leukocyte Esterase (Negative) Urine WBC (Auto) (0-5) /hpf Urine RBC (Auto) (0-2) /hpf U Hyaline Cast (Auto) (0-2) /lpf U Epithel Cells (Auto) (0-2) /hpf Urine Bacteria (Auto) (None Seen) Urine Mucus (None Prsent) Urine Comment Anaplasma Smear See Comment Babesia Smear See Comment Lyme Disease Screen Negative (Negative) 12/31/24 Range/Units 00:54 WBC (4.8-10.8) K/ul RBC (4.20-5.40) M/uL Hgb (12.0-16.0) g/dl Hct (37.0-47.0) % MCV (80.0-100.0) fL MCH (25.0-34.0) pg MCHC (32.0-36.0) g/dL RDW Std Deviation (36.4-46.3) fL RDW Coeff of Rene (11.5-14.5) % Plt Count (130-400) K/uL MPV (9.4-12.4) fL Immature Gran % (Auto) % Neut % (Auto) % Lymph % (Auto) % [place] % (Auto) % Eos % (Auto) % Baso % (Auto) % Neut # (Auto) (1.40-6.50) K/uL Lymph # (Auto) (1.20-3.40) K/uL [place] # (Auto) (0.11-0.59) K/uL Eos # (Auto) (0.00-0.50) K/uL Baso # (Auto) (0.00-0.20) K/uL Immature Gran # (Auto) (0.01-0.20) K/uL PT (9.0-12.0) Seconds INR (0.9-1.1) APTT (21-31) Seconds PTT Ratio Sodium (136-145) mmol/L Potassium (3.5-5.1) mmol/L Chloride (98-107) mmol/L Carbon Dioxide (21-32) mmol/L Anion Gap (3-11) BUN (6-23) mg/dl Creatinine (0.6-1.2) mg/dl Est Cr Clr Drug Dosing eGFR BUN/Creatinine Ratio (10-20) Glucose (70-99(Fasting)) mg/dl Lactate (0.4-2.0) mmol/L Calcium (8.6-10.3) mg/dl Magnesium (1.7-2.4) mg/dl Total Bilirubin (0.2-1.0) mg/dl AST (13-39) U/L ALT (7-52) U/L Alkaline Phosphatase (34-104) U/L Troponin I High Sens (0-14) pg/ml Total Protein (6.0-8.3) gm/dl Albumin (3.4-5.0) gm/dl Globulin (2.5-4.0) gm/dl Albumin/Globulin Ratio (0.9-2) Procalcitonin (0-0.5) ng/ml TSH (0.300-4.500) uIu/ml Urine Color Dark Yellow Urine Appearance Clear (Clear) Urine pH 7.0 (4.5-7.5) Ur Specific [place] > 1.045 H (1.000-1.030) Urine Protein Trace H (Negative) Urine Glucose (UA) Negative (Negative) Urine Ketones Trace H (Negative) Urine Blood Negative (Negative) Urine Nitrite Negative (Negative) Urine Bilirubin 1+ H (Negative) Urine Urobilinogen Positive H (Negative) Ur Leukocyte Esterase 1+ H (Negative) Urine WBC (Auto) 6-10 H (0-5) /hpf Urine RBC (Auto) 0-2 (0-2) /hpf U Hyaline Cast (Auto) 0-2 (0-2) /lpf U Epithel Cells (Auto) 3-5 H (0-2) /hpf Urine Bacteria (Auto) 1+ H (None Seen) Urine Mucus Present A (None Prsent) Urine Comment Anaplasma Smear Babesia Smear Lyme Disease Screen (Negative) Administered Medications Discontinued Medications Acetaminophen (Acetaminophen 500 Mg Tab) 1,000 mg PO NOW STA Stop: 12/30/24 21:12 Last Admin: 12/30/24 23:11 Dose: Not Given Documented By: NAW Sodium Chloride (Nss) 1,000 mls @ 999 mls/hr IV .Q1H1M ONE Stop: 12/31/24 00:30 Last Admin: 12/31/24 00:14 Dose: 999 mls/hr Documented By: MAURIZIO Ioversol (Optiray 320 100ml) 100 ml IV ONCE ONE Stop: 12/30/24 22:58 Last Admin: 12/30/24 22:57 Dose: 93 ml Documented By: SATISH Imaging Data Radiologist's Impression: Chest X-Ray 12/30/24 20:25 Exam(s): XR CXR 1 VIEW EXAM: XR Chest, 1 View CLINICAL HISTORY: Reason for exam: Weakness. TECHNIQUE: Frontal view of the chest. COMPARISON: No relevant prior studies available. FINDINGS: Lungs: Unremarkable. No consolidation. Pleural space: Unremarkable. No pneumothorax. Heart: The cardiac silhouette is borderline enlarged. Mediastinum: Unremarkable. Normal mediastinal contour. Bones/joints: Unremarkable. No acute fracture. Vasculature: The aortic arch is slightly calcified but nondilated. Upper abdomen: Unremarkable as visualized. No pneumoperitoneum under the diaphragm. IMPRESSION: The cardiac silhouette is borderline enlarged. No acute infiltrate or overt edema identified. Electronically signed by: Jerel Hanson MD 12/31/24 00:[address] 12/30/24 20:55 Exam(s): CT HEAD Without Contrast EXAM: CT Head Without Intravenous Contrast CLINICAL HISTORY: Reason for exam: weakness. TECHNIQUE: Axial computed tomography images of the head/brain without intravenous contrast. CTDI is 38.17 mGy and DLP is 547.75 mGy-cm. Automated exposure control was utilized for the study. A dose lowering technique was utilized adhering to the principles of ALARA. COMPARISON: No relevant prior studies available. FINDINGS: Brain: Unremarkable. No hemorrhage. Mild nonspecific white matter changes. No edema. Ventricles: Unremarkable. No ventriculomegaly. Bones/joints: Unremarkable. No acute fracture. Soft tissues: Unremarkable. Sinuses: Unremarkable as visualized. No acute sinusitis. Mastoid air cells: Unremarkable as visualized. No mastoid effusion. IMPRESSION: No evidence of acute intracranial pathology. Electronically signed by: Areli Campbell MD 12/31/24 01:19 AM Abdomen/Pelvis CT 12/30/24 22:09 Exam(s): CT ABDOMEN + PELVIS With Contrast IV Amt: 93 ML OPTIRAY 320 EXAM: CT Abdomen and Pelvis With Intravenous Contrast CLINICAL HISTORY: Reason for exam: LLQ pain. TECHNIQUE: Axial computed tomography images of the abdomen and pelvis with intravenous contrast. CTDI is arch 21.67 mGy and DLP is 1100.48 mGy-cm. Automated exposure control was utilized for the study. A dose lowering technique was utilized adhering to the principles of ALARA. CONTRAST: Patient received 93 ML OPTIRAY 320 of IV contrast COMPARISON: 06/20/2024 FINDINGS: Lung bases: Unremarkable. No mass. No consolidation. ABDOMEN: Liver: There are signs of cirrhosis including a nodular liver surface, esophageal varices, splenorenal shunt, and a recanalized paraumbilical vein as well as splenomegaly measuring 18.5 cm. This is similar to previous. No ascites. Gallbladder and bile ducts: The gallbladder has been removed. No ductal dilation. Pancreas: Unremarkable. No mass. No ductal dilation. Spleen: See above. Adrenals: Unremarkable. No mass. Kidneys and ureters: Unremarkable. No solid mass. No hydronephrosis. Stomach and bowel: Bowel loops are nondilated. There is diverticulosis of the left and sigmoid colon without evidence of acute diverticulitis. No acute focal inflammatory process is seen involving the bowel. Surgical clips from previous gastric bypass surgery. PELVIS: Appendix: No findings to suggest acute appendicitis. Bladder: Unremarkable. No mass. Reproductive: Unremarkable as visualized. ABDOMEN and PELVIS: Intraperitoneal space: See above. Bones/joints: Streak artifact from left hip arthroplasty. Previous instrumentation, fusion, and laminectomy in the lower lumbar spine. No acute fracture. No dislocation. Soft tissues: Unremarkable. Vasculature: The abdominal aorta is mildly calcified but nondilated. Lymph nodes: Unremarkable. No enlarged lymph nodes. IMPRESSION: 1. There are signs of cirrhosis including a nodular liver surface, esophageal varices, splenorenal shunt, and a recanalized paraumbilical vein as well as splenomegaly measuring 18.5 cm. This is similar to previous. No ascites. 2. Bowel loops are nondilated. There is diverticulosis of the left and sigmoid colon without evidence of acute diverticulitis. No acute focal inflammatory process is seen involving the bowel. Electronically signed by: Jerel Hanson MD 12/31/24 00:36 AM Discharge Plan Visit Data Chief Complaint: Leg Weakness, Bilateral Stated Complaint: BILATERAL WEAKNESS ED Provider: Macey Moreno Discharge Problem: Generalized weakness, Acute UTI (urinary tract infection), Hypomagnesemia Condition: Fair Forms Stand Alone Forms: [facility] [place] [employer] Prescriptions Prescriptions: No Action potassium 99 mg Tablet 99 mg PO QAM ferrous sulfate 27 mg iron Tablet 27 mg PO QAM furosemide [Lasix] 20 mg tablet 20 mg PO QAM zinc 100 mg Tablet 200 mg PO QAM lactulose 10 gram/15 mL Solution 30 g PO BID carvedilol 3.125 mg tablet 3.125 mg PO BID Qty: 60 5RF Rx Instructions: must administer with a meal/food aspirin 81 mg Tablet,Delayed Release (Dr/Ec) 81 mg PO QAM Rx Instructions: Patient usually takes 81mg daily, but couldn't find it on 11/17/23, so she took 325mg instead. Referrals Referrals: Marissa Alvarado PA-C [Primary Care Provider] -
[2024-12-30] MEDS: OPTIRAY 320 100ml IV ONE (22:57)
[2024-12-30] MEDS: ACETAMINOPHEN 500 MG TAB PO STA (23:11)
[2024-12-31] MEDS: SODIUM CHLORIDE 0.9% 1,000 ML IV ONE (00:14)
--- NOTE | 2024-12-31 00:17 | XRay Report ---
Exam(s): XR CXR 1 VIEW EXAM: XR Chest, 1 View CLINICAL HISTORY: Reason for exam: Weakness. TECHNIQUE: Frontal view of the chest. COMPARISON: No relevant prior studies available. FINDINGS: Lungs: Unremarkable. No consolidation. Pleural space: Unremarkable. No pneumothorax. Heart: The cardiac silhouette is borderline enlarged. Mediastinum: Unremarkable. Normal mediastinal contour. Bones/joints: Unremarkable. No acute fracture. Vasculature: The aortic arch is slightly calcified but nondilated. Upper abdomen: Unremarkable as visualized. No pneumoperitoneum under the diaphragm. IMPRESSION: The cardiac silhouette is borderline enlarged. No acute infiltrate or overt edema identified. Electronically signed by: Jerel Hanson MD 12/31/24 00:16 AM
--- NOTE | 2024-12-31 00:36 | CT Scan Report ---
Exam(s): CT ABDOMEN + PELVIS With Contrast IV Amt: 93 ML OPTIRAY 320 EXAM: CT Abdomen and Pelvis With Intravenous Contrast CLINICAL HISTORY: Reason for exam: LLQ pain. TECHNIQUE: Axial computed tomography images of the abdomen and pelvis with intravenous contrast. CTDI is arch 21.67 mGy and DLP is 1100.48 mGy-cm. Automated exposure control was utilized for the study. A dose lowering technique was utilized adhering to the principles of ALARA. CONTRAST: Patient received 93 ML OPTIRAY 320 of IV contrast COMPARISON: 06/20/2024 FINDINGS: Lung bases: Unremarkable. No mass. No consolidation. ABDOMEN: Liver: There are signs of cirrhosis including a nodular liver surface, esophageal varices, splenorenal shunt, and a recanalized paraumbilical vein as well as splenomegaly measuring 18.5 cm. This is similar to previous. No ascites. Gallbladder and bile ducts: The gallbladder has been removed. No ductal dilation. Pancreas: Unremarkable. No mass. No ductal dilation. Spleen: See above. Adrenals: Unremarkable. No mass. Kidneys and ureters: Unremarkable. No solid mass. No hydronephrosis. Stomach and bowel: Bowel loops are nondilated. There is diverticulosis of the left and sigmoid colon without evidence of acute diverticulitis. No acute focal inflammatory process is seen involving the bowel. Surgical clips from previous gastric bypass surgery. PELVIS: Appendix: No findings to suggest acute appendicitis. Bladder: Unremarkable. No mass. Reproductive: Unremarkable as visualized. ABDOMEN and PELVIS: Intraperitoneal space: See above. Bones/joints: Streak artifact from left hip arthroplasty. Previous instrumentation, fusion, and laminectomy in the lower lumbar spine. No acute fracture. No dislocation. Soft tissues: Unremarkable. Vasculature: The abdominal aorta is mildly calcified but nondilated. Lymph nodes: Unremarkable. No enlarged lymph nodes. IMPRESSION: 1. There are signs of cirrhosis including a nodular liver surface, esophageal varices, splenorenal shunt, and a recanalized paraumbilical vein as well as splenomegaly measuring 18.5 cm. This is similar to previous. No ascites. 2. Bowel loops are nondilated. There is diverticulosis of the left and sigmoid colon without evidence of acute diverticulitis. No acute focal inflammatory process is seen involving the bowel. Electronically signed by: Jerel Hanson MD 12/31/24 00:36 AM
--- NOTE | 2024-12-31 01:07 | History & Physical Report ---
Date of Service December 31, 2024 Assessment & Plan (1) Generalized weakness: (2) Acute UTI (urinary tract infection): (3) Hypomagnesemia: (4) Thrombocytopenia: Plan Patient is a 69-year-old female with past medical history of cirrhosis secondary to NAFLD, portal hypertension, [place], DVT. Patient presented due to bilateral leg weakness that began at 5 PM this evening and caused her to have difficulty ambulating. #weakness/UTI - urinalysis appears positive for infection, febrile with temp 38.0 C on admission. Nonseptic no leukocytosis, VSS, lactate and procal negative. No other acute findings for weakness TSH WNL, tick panel negative, CXR negative, abdomen pelvis CT negative, head CT negative. appears mild dehydrated - elevated specific gravity on UA - Received 1L NSS bolus in the ED, continue fluid resuscitation with LR @ 80 ml/hr x 1L Rocephin ordered on admission No previous cultures on file - PT/OT ordered Follow blood and urine cultures Trend CBC BMP #hypomagnesemia - mag 1.6, other electrolytes and renal function stable. Possibly contributing to weakness. - 2g IV magnesium ordered on admission - trend bmp and mag #thrombocytopenia - plt count mildly decreased from baseline, 68 on admission. - defer chemical vte ppx - appears as though patient chronically on aspirin #cirrhosis/NAFLD/portal HTN - AP CT reveals no acute changes of liver, stable. LFTs at baseline. - continue home lactulose BID #HTN - continue carvedilol #Hx DVT - provoked after hip replacement several years ago, no chronic AC. VTE ppx: SCDs, hx of DVT however with thrombocytopenia (plt count 68) Dispo: med surg Admission and Anticipated Discharge Date Admission Date: 12/31/24 History of Present Illness Chief Complaint: leg weakness Primary Care Provider: Marissa Alvarado PA-C Patient is a 69-year-old female with past medical history of cirrhosis secondary to NAFLD, portal hypertension, [place], DVT. Patient presented due to bilateral leg weakness that began at 5 PM this evening and caused her to have difficulty ambulating. Patient seen at bedside with her present. She was out with her friend when she developed weakness of her bilateral legs that spreads across her whole leg and began at the same time, no weakness of her feet. She stated she has had back surgery and both hips were replaced however denies any pain at the sites and most recent procedure was over a year ago. She denies any leg pain however does endorse left lower quadrant abdominal pain. Abdomen/pelvis CT negative for acute changes. she denies any sensory deficits, strength deficits, ambulates without assistance at baseline. She denies any other strokelike symptoms, chest pain, shortness of breath, nausea, vomiting, diarrhea, dysuria, difficulty urinating, hematuria. She denies nicotine or alcohol use. She took all of her home medications today. She wishes to be full code. Urinalysis pending at time of admission, suspecting UTI given patient is febrile. She denies any fevers or chills at home. Patient was previously seen by the [facility] team however is being admitted to [facility] due to insurance. Allergies Allergy/AdvReac Type Severity Reaction Status Date / Time No Known Allergies Allergy Verified 12/31/24 02:19 Home Medications Medication Instructions Recorded Confirmed Type aspirin 81 mg tablet,delayed 81 mg PO QAM 11/17/23 12/31/24 History release furosemide 20 mg tablet (Lasix) 40 mg PO QAM 08/18/24 12/31/24 History lactulose 10 gram/15 mL oral 30 g PO QAM 08/18/24 12/31/24 History solution cholecalciferol (vitamin D3) 125 125 mcg PO QAM 12/31/24 12/31/24 History mcg (5,000 unit) capsule ferrous sulfate 325 mg (65 mg 325 mg PO DAILY 12/31/24 12/31/24 History iron) tablet (FeroSul) furosemide 20 mg tablet 20 mg PO .Q AFTERNOON 12/31/24 12/31/24 History lactulose 10 gram/15 mL oral 20 ml PO QPM 12/31/24 12/31/24 History solution potassium chloride 10 mEq 10 meq PO QAM 12/31/24 12/31/24 History capsule,extended release spironolactone 25 mg tablet 25 mg PO QAM 12/31/24 12/31/24 History vitamin B12 2,500 mcg-folic acid 1 tab PO QAM 12/31/24 12/31/24 History 400 mcg disintegrating tablet zinc gluconate 50 mg tablet 50 mg PO QAM 12/31/24 12/31/24 History Past Med/Surg History Problem List (Updated 12/31/24 @ 03:14 by Background Daemon) Thrombocytopenia Hypomagnesemia (Acute) Acute UTI (urinary tract infection) (Acute) Generalized weakness (Acute) History of diverticulitis Diarrhea Postoperative back pain (Acute) Right leg swelling (Acute) S/P spinal surgery Neurogenic claudication due to lumbar spinal stenosis Cirrhosis Portal hypertension NAFLD (nonalcoholic fatty liver disease) Medical History History of diverticulitis no hospitalizations - no current issues Systolic murmur Thrombocytopenia Hx of iron deficiency anemia has had 2 iron infusions in the past Hx of portal hypertension NAFLD (nonalcoholic fatty liver disease) as per patient following with Demi RUBY "liver doctor" - did see [facility] 05/2024 Cirrhosis as per patient following with Demi RUBY "liver doctor" - did see [facility] 05/2024 Arthritis Hx of deep venous thrombosis (~2019) left foot s/p hip surgery (was on blood thinner for 6 months) Heart murmur 01/2023; f/u dr. miranda, cardio "nothing of concern" as per patient Surgical History History of lumbar surgery (10/2023) Hardware present History of open reduction and internal fixation (ORIF) procedure right femur Hx of tooth extraction all top teeth-wears top denture History of bladder surgery sling History of hip surgery left side>repaired after fx History of cholecystectomy History of appendectomy H/O abdominal surgery removed sac formed in abdominal region with cauterization *long time ago [place] teeth removed History of cataract surgery Bilateral Nausea and vomiting after administration of anesthetic agent denies needing scop patch H/O colonoscopy History of esophagogastroduodenoscopy (EGD) H/O gastric bypass 2014 *lost 135lbs Family History Mother Dementia Son Crohn's disease Other Heart disease No family history of adverse response to anesthesia Denies family history of Colorectal cancer Ulcerative colitis Social History Smoking Status: Never smoker Second Hand Exposure: No; Do You Dip or Chew Tobacco: No; Hx Alcohol Use: No Hx Substance Use: No Preferred Language: Czech Communication Ability: Effective Psychologists Required: No Beliefs That Will Affect Care: None Current Living Situation: Spouse Feels Safe at Home: Yes Assistive Devices: None Review of Systems Review of Systems: see HPI Physical Exam Physical Exam: The patient is awake, alert and oriented 3, well developed and well nourished, normocephalic and atraumatic, in no acute distress. Non-toxic appearing. HEENT- EOMI, mucous membranes moist. Hearing grossly intact. Heart-normal S1 and S2. No murmurs, rubs or gallops. Lungs-clear bilaterally, no respiratory distress, no accessory muscle use. Abdomen-normal bowel sounds and soft. No ascites noted. Non-tender. Extremities- no clubbing, cyanosis. +1 pitting edema BL LE. Rheumatologic-normal range of motion. Psychiatric-normal affect. Musculoskeletal: no cyanosis or clubbing, extremities motor strength 5/5 Neurologic: PERRL, EOMI, accommodation nl, no face palsy, no dysarthria Results & Data Results & Data Vital Signs (Past 12 Hours) Vital Signs Temp Pulse Pulse Resp BP BP Pulse Ox 12/30/24 23:01 12/30/24 23:01 71 20 132/59 L 99 12/30/24 22:25 68 12/30/24 20:20 38.0 C H 83 18 107/62 98 O2 Del Method 12/30/24 23:01 Room Air 12/30/24 23:01 Room Air 12/30/24 22:25 12/30/24 20:20 Room Air Laboratory Results Reviewed CBC, CMP, PT/INR, troponin, magnesium, lactate, procalcitonin, TSH, tick panel UA pending Diagnostic Findings reviewed CXR and abdomen pelvis CT Head CT pending Medications Administered EDTylenol 1G p.o., 1L NSS bolus ECG Additional Comments: NSR Rate 77 QTc 482 Code Status & VTE Plan Code Status full code VTE Prophylaxis Plan VTE Prophylaxis will be ordered: Yes Supervising Physician Co-Signing Physician Notes Attending addendum: I have physically seen this patient, have supervised the TATO's activities, and agree with the H&P unless as otherwise noted. Assessment and Plan: The patient is a 69-year-old female with past medical history including liver cirrhosis secondary to NAFLD, portal hypertension, [place], DVT and B12 deficiency. She presents to the emergency department due to bilateral lower extremity weakness that began around 5 PM this evening, and caused her to have difficulty ambulating. Urinary tract infection- Urinalysis is abnormal suggesting a UTI Temperature 38.[address] scan abdomen pelvis negative Follow urine culture and sensitivity Ceftriaxone 2 g IV daily Status post 1 L normal saline bolus in the ED Placed on LR at 80 mL/h x 1 L Weakness of lower extremities- Likely secondary to urinary tract infection CT scan rather pelvis negative CT scan of head negative Tick panel negative Normal TSH Treat UTI and dehydration as noted above Consult PT/OT Hypomagnesemia- Magnesium 1.6 on admission Give 2 g magnesium sulfate IV, and recheck laboratories in a.m. Thrombocytopenia- Platelets 68 on admission, close to baseline Continue aspirin, hold DVT prophylaxis Likely secondary to chronic liver disease Cirrhosis/NAFLD/portal hypertension- CT without acute changes Continue home lactulose twice daily Check ammonia level if LFTs worsen or clinical situation worsens Hypertension- Continue carvedilol with hold parameters PG Care Time/CCT Total # of Minutes Spent Total Time Spent with Patient: Total time spent is greater than 50% in coordination of care (as documented) at patient's floor/unit and/or counseling patient: Coding Level of Care Code 87868 INT INP/OBS CARE 3/75MIN Diagnoses Generalized weakness R53.1 Acute UTI (urinary tract infection) N39.0 Hypomagnesemia E83.42 Thrombocytopenia D69.6
--- NOTE | 2024-12-31 01:20 | CT Scan Report ---
Exam(s): CT HEAD Without Contrast EXAM: CT Head Without Intravenous Contrast CLINICAL HISTORY: Reason for exam: weakness. TECHNIQUE: Axial computed tomography images of the head/brain without intravenous contrast. CTDI is 38.17 mGy and DLP is 547.75 mGy-cm. Automated exposure control was utilized for the study. A dose lowering technique was utilized adhering to the principles of ALARA. COMPARISON: No relevant prior studies available. FINDINGS: Brain: Unremarkable. No hemorrhage. Mild nonspecific white matter changes. No edema. Ventricles: Unremarkable. No ventriculomegaly. Bones/joints: Unremarkable. No acute fracture. Soft tissues: Unremarkable. Sinuses: Unremarkable as visualized. No acute sinusitis. Mastoid air cells: Unremarkable as visualized. No mastoid effusion. IMPRESSION: No evidence of acute intracranial pathology. Electronically signed by: Areli Campbell MD 12/31/24 01:19 AM
[2024-12-31 01:28] LABS: Appearance Urine Clear (Clear); Bacteria Urine Automated 1+ (None Seen); Cast Urine Automated 0-2 /lpf (0-2); Glucose Urine UA Negative (Negative); RBC Urine Automated 0-2 /hpf (0-2)
[2024-12-31] MEDS: cefTRIAXone SODIUM 1,000 MG/50 ML BAG IV STA (02:47)
[2024-12-31] MEDS: Patient's HEIGHT &/or WEIGHT Needed STA (02:59)
[2024-12-31] MEDS ORDERED: ACETAMINOPHEN 325 MG TAB PO PRN (03:14)
[2024-12-31] MEDS ORDERED: DOCUSATE SODIUM 100 MG CAP PO PRN (03:14)
[2024-12-31] MEDS ORDERED: ONDANSETRON INJ 2 MG/ML 2 ML VIAL IV PRN (03:14)
[2024-12-31] MEDS ORDERED: MELATONIN 3 MG TAB PO PRN (03:14)
[2024-12-31] MEDS: LACTATED RINGER'S 1,000 ML IV SCH (03:19)
[2024-12-31] MEDS: MAGNESIUM SULFATE / D5W 1 GM/100 ML BAG IV SCH (03:19)
[2024-12-31] MEDS: FUROSEMIDE 20 MG TAB PO SCH (08:17)
[2024-12-31] MEDS: ASPIRIN 81 MG ECTAB PO SCH (08:17)
[2024-12-31] MEDS: LACTULOSE SYRUP 20 GM/30 ML UDC PO SCH (08:18)
[2024-12-31 09:13] LABS: Hematocrit (blood only) 28.0 % (37.0-47.0); Hemoglobin 9.1 g/dl (12.0-16.0); Mean Corpuscular Hemoglobin 32.9 pg (25.0-34.0); Mean Corpuscular Volume 101.1 fL (80.0-100.0); Platelet Count 55 K/uL (130-400); RDW Standard Deviation 55.2 fL (36.4-46.3); Red Blood Count 2.77 M/uL (4.20-5.40); White Blood Count 2.53 K/ul (4.8-10.8)
[2024-12-31 09:31] LABS: Anion Gap 4.0 (3-11); Blood Urea Nitrogen 15.0 mg/dl (6-23); Calcium 7.8 mg/dl (8.6-10.3); Carbon Dioxide 26.0 mmol/L (21-32); Chloride 110.0 mmol/L (98-107); Creatinine Clr Calc Pharmacy 99.3 ml/min; Glucose 130.0 mg/dl (70-99(Fasting)); Potassium 3.3 mmol/L (3.5-5.1); Sodium 140.0 mmol/L (136-145)
[2024-12-31] MEDS: POTASSIUM CHLORIDE CRTAB 20 MEQ TABCR PO STA (10:15)
--- NOTE | 2024-12-31 13:07 | Hospitalist Progress Note ---
Date of Service December 31, 2024 Assessment & Plan (1) Generalized weakness: (2) Acute UTI (urinary tract infection): (3) Hypomagnesemia: (4) Thrombocytopenia: Plan Patient is a 69-year-old female with past medical history of cirrhosis secondary to NAFLD, portal hypertension, [place], DVT. Patient presented due to bilateral leg weakness that began at 5 PM this evening and caused her to have difficulty ambulating. #weakness/UTI - urinalysis appears positive for infection, febrile with temp 38.0 C on admission. Nonseptic no leukocytosis, VSS, lactate and procal negative. No other acute findings for weakness TSH WNL, tick panel negative, CXR negative, abdomen pelvis CT negative, head CT negative. Hydrated with 2L IVF Continue rocephin urine culture pending Blood cultures pending PT/OT ordered Pt and family eager for discharge - but third admission for similar complaints. Was following with [facility] but working on transfering care to [facility]. Discussed importance of staying in patient for culture data. Patient denies wearing pads. Offered [place] [facility] referral and they will consider. Consider repeat UA post treatment. #hypomagnesemia - mag 1.6, repeleted IV and now 1.7 #thrombocytopenia - plt count mildly decreased from baseline, 68 on admission. suspect seconday to cirrhosis. okay to continue ASA, hold for plt < 50 #cirrhosis/NAFLD/portal HTN - AP CT reveals no acute changes of liver, stable. LFTs at baseline. continue home lactulose BID #HTN - continue carvedilol #Hx DVT - provoked after hip replacement several years ago, no chronic AC. VTE ppx: SCDs, hx of DVT however with thrombocytopenia (plt count 68) Dispo: continued inpatient stay monitoring fever curve and awaiting culture data Admission and Anticipated Discharge Date Admission Date: December 31, 2024 Supervising Physician Co-Signing Physician Notes The patient was not seen by me. The chart was reviewed. Case discussed with IFTIKHAR Choudhary. Agree with assessment and plan Subjective patient seen sitting on the edge of the bed with at bedside while holding down in the ER. States she is feeling about 80% better weakness has greatly improved and she has ambulated in the halls. reports that she this is her third hospitalization recently for urinary infection they were previously seeing [facility] [facility] and not satisfied with the care and working on getting [facility]. Anxious for discharge home however discussed the importance of waiting for culture data to ensure proper antibiotics and maintaining afebrile x 24 hours Review of Systems Review of Systems: All systems reviewed & are unremarkable except as noted in Subjective Physical Exam Physical Exam: General: NAD, VS as above Resp: normal respiratory effort, lungs clear to auscultation CV: RRR, no murmur, Abd: normal bowel sounds, non tender, Soft Extremities: Moves all extremities, bilateral lower extremity edemapatient states this is her normal. Neuro: A&O x3, Results & Data Results & Data Vital Signs (Past 12 Hours) Vital Signs Temp Pulse Pulse Resp BP Pulse Ox O2 Del Method 12/31/24 12:21 68 18 95/56 L 98 Room Air 12/31/24 11:44 97.7 F 12/31/24 07:56 81 12/31/24 04:09 75 12/31/24 03:14 70 16 124/63 96 Room Air 12/31/24 02:00 72 20 117/65 99 Room Air PG Care Time/CCT Total # of Minutes Spent Total Time Spent with Patient: Total time spent is greater than 50% in coordination of care (as documented) at patient's floor/unit and/or counseling patient: Coding Level of Care Code None Diagnoses Generalized weakness R53.1 Acute UTI (urinary tract infection) N39.0 Hypomagnesemia E83.42 Thrombocytopenia D69.6
[2025-01-01] MEDS ORDERED: cefTRIAXone SODIUM 1,000 MG/50 ML BAG IV SCH (01:30)
[2025-01-01] MEDS: cefTRIAXone SODIUM 2,000 MG/50 ML BAG IV SCH (02:35)
[2025-01-01 08:01] VITALS: BP 101/63; PULSE 60; RESP 16; TEMP 97.9; O2SAT 95
[2025-01-01 08:13] LABS: Hematocrit (blood only) 28.7 % (37.0-47.0); Hemoglobin 9.6 g/dl (12.0-16.0); Immature Granulocytes # (auto) 0.01 K/uL (0.01-0.20); Immature Granulocytes % (auto) 0.4 %; Mean Corpuscular Hemoglobin 33.7 pg (25.0-34.0); Mean Corpuscular Volume 100.7 fL (80.0-100.0); Platelet Count 58 K/uL (130-400); RDW Standard Deviation 55.6 fL (36.4-46.3); Red Blood Count 2.85 M/uL (4.20-5.40); White Blood Count 2.29 K/ul (4.8-10.8)
[2025-01-01 10:45] LABS: Anion Gap 3.0 (3-11); Blood Urea Nitrogen 12.0 mg/dl (6-23); Calcium 7.9 mg/dl (8.6-10.3); Carbon Dioxide 28.0 mmol/L (21-32); Chloride 111.0 mmol/L (98-107); Creatinine Clr Calc Pharmacy 108.5 ml/min; Glucose 110.0 mg/dl (70-99(Fasting)); Potassium 4.1 mmol/L (3.5-5.1); Sodium 142.0 mmol/L (136-145)
--- NOTE | 2025-01-01 11:18 | Discharge Summary ---
Discharge Summary Date of Service January 01, 2025 Principal Dx & Hospital Course #1 = Principal Diagnosis (1) Generalized weakness: (2) Acute UTI (urinary tract infection): (3) Hypomagnesemia: (4) Thrombocytopenia: Plan #weakness/UTI Patient is a 69-year-old female with past medical history of cirrhosis secondary to NAFLD, portal hypertension, [place], DVT. Patient presented due to bilateral leg weakness that began at 5 PM this evening and caused her to have difficulty ambulating. Urinalysis appears positive for infection, febrile with temp 38.0 C on admission. Nonseptic no leukocytosis, VSS, lactate and procal negative. No other acute findings for weakness TSH WNL, tick panel negative, CXR negative, abdomen pelvis CT negative, head CT negative. received 2 L of IV fluids. Started on Rocephin with great improvement. Unfortunately urine culture shows contamination however given patient's drastic improvement after 1 dose of ceftriaxone will continue course of oral antibiotics, Keflex for 3 additional days. PT/OT cleared for home. Blood cultures negative at 24 hours at discharge Patient reports that this is her third hospital stay for similar complaints have been working to try to get into the [facility] for repeat infections. Provided information if she would choose to use meth in the urology instead. #hypomagnesemia - mag 1.6, repeleted IV and now 1.7 #thrombocytopenia - plt count mildly decreased from baseline, 68 on admission. suspect seconday to cirrhosis. okay to continue ASA, hold for plt < 50 #cirrhosis/NAFLD/portal HTN - AP CT reveals no acute changes of liver, stable. LFTs at baseline. continue home lactulose BID #HTN - continue carvedilol #Hx DVT - provoked after hip replacement several years ago, no chronic AC. Dispo: Discharged home today Notes For Next Care Provider Medication Changes From Visit course of Keflex Admission HPI Per Admitting Provider Patient is a 69-year-old female with past medical history of cirrhosis secondary to NAFLD, portal hypertension, [place], DVT. Patient presented due to bilateral leg weakness that began at 5 PM this evening and caused her to have difficulty ambulating. Patient seen at bedside with her present. She was out with her friend when she developed weakness of her bilateral legs that spreads across her whole leg and began at the same time, no weakness of her feet. She stated she has had back surgery and both hips were replaced however denies any pain at the sites and most recent procedure was over a year ago. She denies any leg pain however does endorse left lower quadrant abdominal pain. Abdomen/pelvis CT negative for acute changes. she denies any sensory deficits, strength deficits, ambulates without assistance at baseline. She denies any other strokelike symptoms, chest pain, shortness of breath, nausea, vomiting, diarrhea, dysuria, difficulty urinating, hematuria. She denies nicotine or alcohol use. She took all of her home medications today. She wishes to be full code. Urinalysis pending at time of admission, suspecting UTI given patient is febrile. She denies any fevers or chills at home. Patient was previously seen by the [facility] team however is being admitted to [facility] due to insurance. Discharge Exam General: NAD, VS as above Resp: normal respiratory effort, CV: well-perfused Abds, non tender, Soft Extremities: Moves all extremities, bilateral lower extremity edemapatient states this is her normal. Neuro: A&O x3, Discharge Plan Discharge Items Patient Disposition: Home - Self-Care Reason For Visit: WEAKNESS Discharge Diagnosis: UTI Condition on Discharge: Fair Activity: Resume your previous activity Non-emergency contact: Primary Care Provider Call non-emergency contact if: you have any medication questions, your symptoms worsen, your pain is worsening and your temperature is above 101.5 Follow-up/Referrals: Marissa Alvarado PA-C [Primary Care Provider] - ( follow-up within 1 week) Florin Hudson MD [Physician] - ( [facility] urology practice, please call if you would like to establish care here) Diet: Regular Addtl Attending Provider Instructions: Ms. Arias, You were hospitalized after having weakness at home likely from a UTI. Unfortunately your urine culture did not grow a specific bacteria but given the degree of improvement with antibiotics, I feel that it is reasonable to continue oral antibiotics. This will be keflex twice a day for 3 more days. Take the first dose this evening. You have blood cultures pending at the time of discharge, they are negative at 24 hours but take 5 days to get final results. If they turn positive you will be notified, you can also check in with your PCP or the [facility] portal. However, given your symptoms I do not expect they will be positive. please follow-up with your PCP within the next week. I have attached the information for [facility] urology about if you want to try to transfer your care there. You are provided with a form to request records to send to [facility]. No changes to your home medications - if this med list does not look right, please follow the normal guidance from your PCP. Activity: You can do normal everyday activities as your body allows. Take rest breaks if you feel tired. Do not overexert. Stop activity if you have pain, shortness of breath or feel dizzy. Follow-up appointments: Make an appointment with your primary care physician within one week of discharge. A copy of this summary will be sent to them. Every time you see your primary care physician, or any other doctor, bring your medication list, and a list of questions. CONTACT YOUR PRIMARY CARE PROVIDER if you experience any of the following: Shortness of breath or difficulty breathing Fevers or chills Feeling tired with normal activity or experiencing dizziness or fainting Difficulty following your treatment plan, or difficulty taking medications CALL 911 OR GO TO THE EMERGENCY DEPARTMENT if you experience any of the following: Severe abdominal pain or nausea/vomiting Severe chest pain, or chest pain that radiates (moves) to your jaw or arm Sudden, severe shortness of breath or difficulty breathing Thank you for allowing us to participate in your care. Pending Studies at Discharge: Yes ( Blood culture) Stand-Alone Forms: My [facility], Smoking Cessation Medications and DC Order Prescriptions: New cephalexin 500 mg capsule 500 mg PO BID 3 Days Qty: 6 0RF carvedilol 3.125 mg Tablet 3.125 mg PO BID Qty: 30 0RF Continued furosemide [Lasix] 20 mg tablet 40 mg PO QAM Rx Instructions: TAKE TWO TABLETS EVERY AM lactulose 10 gram/15 mL Solution 30 g PO QAM furosemide 20 mg tablet 20 mg PO .Q AFTERNOON Rx Instructions: TAKE ONE TABLET DAILY AT 1PM, IN ADDITION TO TAKING TWO 20MG TABLETS IN THE AM. lactulose 10 gram/15 mL solution 20 ml PO QPM potassium chloride 10 mEq capsule, extended release 10 meq PO QAM spironolactone 25 mg tablet 25 mg PO QAM ferrous sulfate [FeroSul] 325 mg (65 mg iron) tablet 325 mg PO DAILY zinc gluconate 50 mg Tablet 50 mg PO QAM cholecalciferol (vitamin D3) 125 mcg (5,000 unit) Capsule 125 mcg PO QAM vitamin J58-anedi acid 2,500-400 mcg Tablet,Disintegrating 1 tab PO QAM aspirin 81 mg Tablet,Delayed Release (Dr/Ec) 81 mg PO QAM Discharge Orders: Discharge Order (Routine); Ordered 01/01/25 Ordered By: Macarena Taylor Admission Data Admit Date/Time: 12/31/24 01:23 Attending Provider: Guanako Hoyt Admit Provider: Behzad Valdivia Primary Care Provider: Marissa Alvarado Other Providers: Behzad Valdivia Hospital Stay Data Consultations 12/31/24 00:51 ED Decision to Admit Stat Diagnostic Imagining Performed Chest X-Ray 12/30/24 20:25 Exam(s): XR CXR 1 VIEW EXAM: XR Chest, 1 View CLINICAL HISTORY: Reason for exam: Weakness. TECHNIQUE: Frontal view of the chest. COMPARISON: No relevant prior studies available. FINDINGS: Lungs: Unremarkable. No consolidation. Pleural space: Unremarkable. No pneumothorax. Heart: The cardiac silhouette is borderline enlarged. Mediastinum: Unremarkable. Normal mediastinal contour. Bones/joints: Unremarkable. No acute fracture. Vasculature: The aortic arch is slightly calcified but nondilated. Upper abdomen: Unremarkable as visualized. No pneumoperitoneum under the diaphragm. IMPRESSION: The cardiac silhouette is borderline enlarged. No acute infiltrate or overt edema identified. Electronically signed by: Jerel Hanson MD 12/31/24 00:[address] 12/30/24 20:55 Exam(s): CT HEAD Without Contrast EXAM: CT Head Without Intravenous Contrast CLINICAL HISTORY: Reason for exam: weakness. TECHNIQUE: Axial computed tomography images of the head/brain without intravenous contrast. CTDI is 38.17 mGy and DLP is 547.75 mGy-cm. Automated exposure control was utilized for the study. A dose lowering technique was utilized adhering to the principles of ALARA. COMPARISON: No relevant prior studies available. FINDINGS: Brain: Unremarkable. No hemorrhage. Mild nonspecific white matter changes. No edema. Ventricles: Unremarkable. No ventriculomegaly. Bones/joints: Unremarkable. No acute fracture. Soft tissues: Unremarkable. Sinuses: Unremarkable as visualized. No acute sinusitis. Mastoid air cells: Unremarkable as visualized. No mastoid effusion. IMPRESSION: No evidence of acute intracranial pathology. Electronically signed by: Areli Campbell MD 12/31/24 01:19 AM Abdomen/Pelvis CT 12/30/24 22:09 Exam(s): CT ABDOMEN + PELVIS With Contrast IV Amt: 93 ML OPTIRAY 320 EXAM: CT Abdomen and Pelvis With Intravenous Contrast CLINICAL HISTORY: Reason for exam: LLQ pain. TECHNIQUE: Axial computed tomography images of the abdomen and pelvis with intravenous contrast. CTDI is arch 21.67 mGy and DLP is 1100.48 mGy-cm. Automated exposure control was utilized for the study. A dose lowering technique was utilized adhering to the principles of ALARA. CONTRAST: Patient received 93 ML OPTIRAY 320 of IV contrast COMPARISON: 06/20/2024 FINDINGS: Lung bases: Unremarkable. No mass. No consolidation. ABDOMEN: Liver: There are signs of cirrhosis including a nodular liver surface, esophageal varices, splenorenal shunt, and a recanalized paraumbilical vein as well as splenomegaly measuring 18.5 cm. This is similar to previous. No ascites. Gallbladder and bile ducts: The gallbladder has been removed. No ductal dilation. Pancreas: Unremarkable. No mass. No ductal dilation. Spleen: See above. Adrenals: Unremarkable. No mass. Kidneys and ureters: Unremarkable. No solid mass. No hydronephrosis. Stomach and bowel: Bowel loops are nondilated. There is diverticulosis of the left and sigmoid colon without evidence of acute diverticulitis. No acute focal inflammatory process is seen involving the bowel. Surgical clips from previous gastric bypass surgery. PELVIS: Appendix: No findings to suggest acute appendicitis. Bladder: Unremarkable. No mass. Reproductive: Unremarkable as visualized. ABDOMEN and PELVIS: Intraperitoneal space: See above. Bones/joints: Streak artifact from left hip arthroplasty. Previous instrumentation, fusion, and laminectomy in the lower lumbar spine. No acute fracture. No dislocation. Soft tissues: Unremarkable. Vasculature: The abdominal aorta is mildly calcified but nondilated. Lymph nodes: Unremarkable. No enlarged lymph nodes. IMPRESSION: 1. There are signs of cirrhosis including a nodular liver surface, esophageal varices, splenorenal shunt, and a recanalized paraumbilical vein as well as splenomegaly measuring 18.5 cm. This is similar to previous. No ascites. 2. Bowel loops are nondilated. There is diverticulosis of the left and sigmoid colon without evidence of acute diverticulitis. No acute focal inflammatory process is seen involving the bowel. Electronically signed by: Jerel Hanson MD 12/31/24 00:36 AM Pending Results Patient Have Any Pending Studies at Discharge: Yes ( Blood culture) Discharge Instructions Given to Patient (Per Discharging Provider) Ms. Arias, You were hospitalized after having weakness at home likely from a UTI. Unfortunately your urine culture did not grow a specific bacteria but given the degree of improvement with antibiotics, I feel that it is reasonable to continue oral antibiotics. This will be keflex twice a day for 3 more days. Take the first dose this evening. You have blood cultures pending at the time of discharge, they are negative at 24 hours but take 5 days to get final results. If they turn positive you will be notified, you can also check in with your PCP or the [facility] portal. However, given your symptoms I do not expect they will be positive. please follow-up with your PCP within the next week. I have attached the information for [facility] urology about if you want to try to transfer your care there. You are provided with a form to request records to send to [facility]. No changes to your home medications - if this med list does not look right, please follow the normal guidance from your PCP. Activity: You can do normal everyday activities as your body allows. Take rest breaks if you feel tired. Do not overexert. Stop activity if you have pain, shortness of breath or feel dizzy. Follow-up appointments: Make an appointment with your primary care physician within one week of discharge. A copy of this summary will be sent to them. Every time you see your primary care physician, or any other doctor, bring your medication list, and a list of questions. CONTACT YOUR PRIMARY CARE PROVIDER if you experience any of the following: Shortness of breath or difficulty breathing Fevers or chills Feeling tired with normal activity or experiencing dizziness or fainting Difficulty following your treatment plan, or difficulty taking medications CALL 911 OR GO TO THE EMERGENCY DEPARTMENT if you experience any of the following: Severe abdominal pain or nausea/vomiting Severe chest pain, or chest pain that radiates (moves) to your jaw or arm Sudden, severe shortness of breath or difficulty breathing Thank you for allowing us to participate in your care. Total Time Total Time Spent Total Time Spent (In Minutes): Time spent day of discharge 35 minutes including direct patient care, medication reconciliation, documentation, review of labs and images, and coordination of care. Coding Level of Care Code 37145 INP/OBS DISCH >30 MIN Diagnoses Generalized weakness R53.1 Acute UTI (urinary tract infection) N39.0 Hypomagnesemia E83.42 Thrombocytopenia D69.6
--- NOTE | 2025-01-02 06:09 | Electrocardiogram Report ---
Test Reason : Blood Pressure : */* mmHG Vent. Rate : 77 BPM Atrial Rate : 77 BPM P-R Int : 172 ms QRS Dur : 96 ms QT Int : 406 ms P-R-T Axes : 43 -28 56 degrees QTcB Int : 460 ms Normal sinus rhythm Normal ECG When compared with ECG of 17-Oct-2023 10:24, No significant change was found Confirmed by Cristo Smith ([id number]) on 01/02/2025 6:09:13 AM Referred By: REFERRED SELF Confirmed By: Cristo Smith
== END 2025-01-01 12:32 | disposition home or self-care (01) ==
LOC: ED 20:01 → EDINP 20:01 → SUATTDRO 12-31 01:23 → 3N 12-31 03:15

== ENCOUNTER 2025-01-22 16:56 | Inpatient (IN) ==
--- NOTE | 2025-01-22 17:14 | Emergency Department Note ---
Impression & Plan Acute hepatic encephalopathy, NAFLD (nonalcoholic fatty liver disease), Thrombocytopenia, Generalized weakness, Acute confusion ED Provider Note NAME: PORSHA SALES AGE: 69 SEX: F : 1955 ARRIVES VIA: Walk-In INFORMANT: Patient ED PROVIDER(S): Devon Hoyos MD CHIEF COMPLAINT: Generalized weakness/confusion PLAN: Disposition: Admit MEDICAL DECISION MAKING: The patient is a pleasant 69-year-old woman with a past medical history of cirrhosis secondary to NAFLD, portal hypertension, lumbar spinal stenosis, thrombocytopenia who presents to the emergency department via walk-in accompanied by her for evaluation of worsening generalized weakness and confusion over the past several days similar to her recent hospitalization. The patient was recently admitted to this facility from 12/31-01/01 for generalized weakness and acute urinary tract infection. He worries that the patient may have a urinary tract infection again. They deny any measured fevers. EKG without overt acute ischemia. CXR negative for acute cardiopulmonary process per my personal preliminary review/interpretation. WBC 2.9 K, H/H 10.7/32.7 and platelets 69K all similar to prior in the setting of the patient's history of pancytopenia in setting of her cirrhosis. INR 1.3 at patient's baseline. Chemistry without metabolic acidosis. Total bilirubin direct bilirubin 4.3 and 1.0, respectively. AST is 49 and alk phos 150 all similar to prior. Ammonia is newly elevated at 149. Lipase is not elevated. TSH within limits. UA demonstrates leuk esterase but no bacteria or nitrites. CT of the head and abdomen/pelvis were performed and were negative for acute abnormalities. Patient is known cirrhosis with portal hypertension is noted. No large volume ascites. Given the patient's elevated ammonia the patient symptoms are likely related to this. Oral lactulose initiated. Patient and agree with plan for admission for further management. Case was discussed with Dr. Hanson, [facility] hospitalist, who will evaluate the patient for admission. Further management per admitting team. Triage Nursing notes reviewed and agree them. Prior/external medical records reviewed Vital Signs: reviewed Differential diagnosis: Infection, dehydration, metabolic abnormality, hypo/hyperglycemia, electrolyte disturbance, anemia, hypoxia, cardiac sources, intracerebral event, toxicologic, neurologic, as well as other pathologies. ER treatment provided: See below. Diagnostics interpreted by me: ECG: Normal sinus rhythm, 60 bpm, LVH, no overt ST elevation or depression, QTc 488, QRS 114. Cardiac Monitoring: An order for continuous cardiac monitoring was placed and demonstrated normal sinus rhythm, 60 bpm, no ectopy. Laboratory studies: See below Imaging studies: See below Consultation(s): Dr. Hanson, [facility] hospitalist. HPI: Per MDM. ROS: See above HPI for pertinent positives & negatives. A total of 10 systems reviewed and were otherwise negative. VITALS:See Below PHYSICAL EXAMINATION: GENERAL: Awake, alert, fatigued-appearing, in no distress HENT: Normocephalic, atraumatic. Oropharynx with dry mucous membranes and otherwise unremarkable. EYES: Normal conjunctiva. Sclera mildly icteric. NECK: Supple. No nuchal rigidity. FROM. No JVD. RESPIRATORY: Clear to auscultation. CARDIAC: Tachycardic rate, normal rhythm. Extremities warm and well perfused. Pulses equal. ABDOMEN: Soft, non-distended. No tenderness to palpation. No rebound or guarding. No masses. MUSCULOSKELETAL: Chest examination reveals no tenderness. The back is symmetrical on inspection without obvious abnormality. There is no CVA tenderness to palpation. No joint edema. LOWER EXTREMITIES: Calves are equal size bilaterally and non-tender. No edema. No discoloration. NEURO: Cranial nerves II-XII grossly intact. Generalized weakness of all extremities without focal extremity weakness. Intact finger-nose. Asterixis of bilateral upper extremities. SKIN: Mild jaundice jaundice noted. No rashes. Devon Hoyos MD Past Med/Surg History Problem List (Updated 01/23/25 @ 05:01 by Devon Hoyos MD) Acute confusion (Acute) Acute hepatic encephalopathy (Acute) Thrombocytopenia (Acute) Hypomagnesemia (Acute) Acute UTI (urinary tract infection) (Acute) Generalized weakness (Acute) History of diverticulitis Diarrhea Postoperative back pain (Acute) Right leg swelling (Acute) S/P spinal surgery Neurogenic claudication due to lumbar spinal stenosis Cirrhosis Portal hypertension NAFLD (nonalcoholic fatty liver disease) (Acute) Medical History History of diverticulitis no hospitalizations - no current issues Systolic murmur Hx of iron deficiency anemia has had 2 iron infusions in the past Hx of portal hypertension NAFLD (nonalcoholic fatty liver disease) as per patient following with [facility] "liver doctor" - did see [facility] 05/2024 Cirrhosis as per patient following with Demi Bhatia Dee [facility]BY "liver doctor" - did see [facility] 05/2024 Arthritis Hx of deep venous thrombosis (~2019) left foot s/p hip surgery (was on blood thinner for 6 months) Heart murmur 01/2023; f/u dr. miranda, cardio "nothing of concern" as per patient Surgical History History of lumbar surgery (10/2023) Hardware present History of open reduction and internal fixation (ORIF) procedure right femur Hx of tooth extraction all top teeth-wears top denture History of bladder surgery sling History of hip surgery left side>repaired after fx History of cholecystectomy History of appendectomy H/O abdominal surgery removed sac formed in abdominal region with cauterization *long time ago [employer] teeth removed History of cataract surgery Bilateral Nausea and vomiting after administration of anesthetic agent denies needing scop patch H/O colonoscopy History of esophagogastroduodenoscopy (EGD) H/O gastric bypass 2014 *lost 135lbs Family History Mother Dementia Son Crohn's disease Other Heart disease No family history of adverse response to anesthesia Denies family history of Colorectal cancer Ulcerative colitis Social History Smoking Status: Never smoker Second Hand Exposure: No; Do You Dip or Chew Tobacco: No; Hx Alcohol Use: No Hx Substance Use: No Preferred Language: Serbian Communication Ability: Effective Wood Grainer Required: No Beliefs That Will Affect Care: None Current Living Situation: Spouse Other Information That Helps Us Care for You: No Feels Safe at Home: Yes Safety Concerns: Feels Safe At This Time Assistive Devices: None Allergies Allergies Allergy/AdvReac Type Severity Reaction Status Date / Time No Known Allergies Allergy Verified 12/31/24 02:19 Home Meds Home Medications Medication Instructions Recorded Confirmed aspirin 81 mg tablet,delayed 81 mg PO QAM 11/17/23 01/22/25 release furosemide 20 mg tablet (Lasix) 40 mg PO QAM 08/18/24 01/22/25 lactulose 10 gram/15 mL oral 30 g PO QAM 08/18/24 01/22/25 solution cholecalciferol (vitamin D3) 125 125 mcg PO QAM 12/31/24 01/22/25 mcg (5,000 unit) capsule ferrous sulfate 325 mg (65 mg 325 mg PO DAILY 12/31/24 01/22/25 iron) tablet (FeroSul) furosemide 20 mg tablet 20 mg PO .Q AFTERNOON 12/31/24 01/22/25 lactulose 10 gram/15 mL oral 20 ml PO QPM 12/31/24 01/22/25 solution potassium chloride 10 mEq 10 meq PO QAM 12/31/24 01/22/25 capsule,extended release spironolactone 25 mg tablet 25 mg PO QAM 12/31/24 01/22/25 vitamin B12 2,500 mcg-folic acid 1 tab PO QAM 12/31/24 01/22/25 400 mcg disintegrating tablet zinc gluconate 50 mg tablet 50 mg PO QAM 12/31/24 01/22/25 solifenacin 5 mg tablet 5 mg PO DAILY 01/22/25 01/22/25 Previous Rx's Medication Instructions Recorded carvedilol 3.125 mg tablet 3.125 mg PO BID #30 tabs 01/01/25 Results & Data (ED) Vital Signs Vital Signs - 24 hr 01/22/25 16:57 01/22/25 16:57 01/22/25 17:10 Temperature 36.6 C Temperature Source Temporal Artery Scan Pulse Rate 63 Pulse Rate [Right Finger] Pulse Rate from SpO2 Sensor Respiratory Rate 18 18 Respiratory Effort / Characteristics Respiratory Depth Blood Pressure 126/66 Blood Pressure [Right Arm] Blood Pressure Mean 86 Blood Pressure Mean [Right Arm] Pulse Oximetry 97 Oxygen Delivery Method Room Air Room Air Sepsis Recent Fever Within 48 Hours No Sepsis New/Unexplained Change in Mental Status N/A Sepsis Action Taken by Nursing No Action Required 01/22/25 17:14 01/22/25 17:40 01/22/25 18:06 Temperature Temperature Source Pulse Rate 65 Pulse Rate [Right Finger] 62 Pulse Rate from SpO2 Sensor Respiratory Rate 16 Respiratory Effort / Characteristics Non-Labored Spontaneous Respiratory Depth Normal Blood Pressure Blood Pressure [Right Arm] 121/70 Blood Pressure Mean Blood Pressure Mean [Right Arm] 87 Pulse Oximetry 97 Oxygen Delivery Method Room Air Room Air Sepsis Recent Fever Within 48 Hours Sepsis New/Unexplained Change in Mental Status Sepsis Action Taken by Nursing 01/22/25 19:02 01/22/25 19:51 01/22/25 20:03 Temperature Temperature Source Pulse Rate 64 67 64 Pulse Rate [Right Finger] Pulse Rate from SpO2 Sensor 62 67 64 Respiratory Rate 12 16 12 Respiratory Effort / Characteristics Respiratory Depth Blood Pressure 128/81 127/94 133/69 Blood Pressure [Right Arm] Blood Pressure Mean 107 105 90 Blood Pressure Mean [Right Arm] Pulse Oximetry 95 96 95 Oxygen Delivery Method Room Air Room Air Room Air Sepsis Recent Fever Within 48 Hours Sepsis New/Unexplained Change in Mental Status Sepsis Action Taken by Nursing 01/22/25 20:33 01/22/25 21:00 01/22/25 21:21 Temperature Temperature Source Pulse Rate 63 61 62 Pulse Rate [Right Finger] Pulse Rate from SpO2 Sensor 64 61 Respiratory Rate 13 13 Respiratory Effort / Characteristics Respiratory Depth Blood Pressure 115/60 115/59 L Blood Pressure [Right Arm] Blood Pressure Mean 78 82 Blood Pressure Mean [Right Arm] Pulse Oximetry 95 95 Oxygen Delivery Method Room Air Room Air Sepsis Recent Fever Within 48 Hours Sepsis New/Unexplained Change in Mental Status Sepsis Action Taken by Nursing 01/22/25 21:24 01/22/25 21:30 01/22/25 21:36 Temperature Temperature Source Pulse Rate 62 67 Pulse Rate [Right Finger] Pulse Rate from SpO2 Sensor 62 66 Respiratory Rate 12 14 Respiratory Effort / Characteristics Respiratory Depth Blood Pressure 133/76 Blood Pressure [Right Arm] Blood Pressure Mean 109 Blood Pressure Mean [Right Arm] Pulse Oximetry 94 92 Oxygen Delivery Method Room Air Room Air Sepsis Recent Fever Within 48 Hours Sepsis New/Unexplained Change in Mental Status Sepsis Action Taken by Nursing 01/22/25 22:02 01/22/25 22:06 Temperature Temperature Source Pulse Rate 70 Pulse Rate [Right Finger] Pulse Rate from SpO2 Sensor 71 Respiratory Rate 19 Respiratory Effort / Characteristics Respiratory Depth Blood Pressure 115/63 Blood Pressure [Right Arm] Blood Pressure Mean 85 Blood Pressure Mean [Right Arm] Pulse Oximetry 95 Oxygen Delivery Method Room Air Sepsis Recent Fever Within 48 Hours Sepsis New/Unexplained Change in Mental Status Sepsis Action Taken by Nursing Laboratory Data Attestation: I reviewed the patient's lab results. 01/22/25 17:30 01/22/25 17:30 Lab Results 01/22/25 01/22/25 01/22/25 Range/Units 17:30 17:37 18:40 WBC 2.97 L (4.8-10.8) K/ul RBC 3.29 L (4.20-5.40) M/uL Hgb 10.7 L (12.0-16.0) g/dl POC Hgb 10.5 L (12.0-16.0) g/dl Hct 32.7 L (37.0-47.0) % POC Hct 31 L (37-47) % MCV 99.4 (80.0-100.0) fL MCH 32.5 (25.0-34.0) pg MCHC 32.7 (32.0-36.0) g/dL RDW Std Deviation 58.0 H (36.4-46.3) fL RDW Coeff of Rene 15.8 H (11.5-14.5) % Plt Count 69 L (130-400) K/uL MPV 10.9 (9.4-12.4) fL Immature Gran % (Auto) 0.3 % Neut % (Auto) 52.6 % Lymph % (Auto) 33.3 % [place] % (Auto) 10.4 % Eos % (Auto) 2.7 % Baso % (Auto) 0.7 % Neut # (Auto) 1.56 (1.40-6.50) K/uL Lymph # (Auto) 0.99 L (1.20-3.40) K/uL [place] # (Auto) 0.31 (0.11-0.59) K/uL Eos # (Auto) 0.08 (0.00-0.50) K/uL Baso # (Auto) 0.02 (0.00-0.20) K/uL Immature Gran # (Auto) 0.01 (0.01-0.20) K/uL PT 13.9 H (9.0-12.0) Seconds INR 1.3 H (0.9-1.1) POC Sodium 145 H (135-144) mmol/L Sodium 143 (136-145) mmol/L POC Potassium 3.9 (3.3-5.0) mmol/L Potassium 4.0 (3.5-5.1) mmol/L POC Chloride 108 (101-112) mmol/L Chloride 111 H (98-107) mmol/L Carbon Dioxide 29 (21-32) mmol/L POC Total CO2 25 (24-31) mmol/L Anion Gap 3 (3-11) POC Anion Gap 16.0 (16-25) mmol/L POC BUN 23 H (7-18) mg/dl BUN 24 H (6-23) mg/dl Creatinine 0.73 (0.6-1.2) mg/dl POC Creatinine 0.8 (0.6-1.3) mg/dl Est Cr Clr Drug Dosing Not Reportable eGFR 87.87 BUN/Creatinine Ratio 32.9 H (10-20) Glucose 106 H (70-99(Fasting)) mg/dl POC Glucose (other) 103 H (70-99) mg/dl Calcium 8.5 L (8.6-10.3) mg/dl POC Ioniz Calcium Rosa 1.13 (1.12-1.32) mmol/l Phosphorus 2.9 (2.5-4.9) mg/dl Magnesium 1.9 (1.7-2.4) mg/dl Total Bilirubin 4.3 H (0.2-1.0) mg/dl Direct Bilirubin 1.0 H (0-0.2) mg/dl AST 49 H (13-39) U/L ALT 21 (7-52) U/L Alkaline Phosphatase 150 H (34-104) U/L Ammonia (18-72) umol/L Troponin I High Sens 5.9 (0-14) pg/ml Total Protein 6.0 (6.0-8.3) gm/dl Albumin 2.9 L (3.4-5.0) gm/dl Globulin 3.1 (2.5-4.0) gm/dl Albumin/Globulin Ratio 0.9 (0.9-2) Lipase 30 (11-82) U/L TSH 2.573 (0.300-4.500) uIu/ml Urine Color Dark Yellow Urine Appearance Clear (Clear) Urine pH 6.5 (4.5-7.5) Ur Specific [place] 1.024 (1.000-1.030) Urine Protein Negative (Negative) Urine Glucose (UA) Negative (Negative) Urine Ketones Trace H (Negative) Urine Blood Negative (Negative) Urine Nitrite Negative (Negative) Urine Bilirubin 1+ H (Negative) Urine Urobilinogen Positive H (Negative) Ur Leukocyte Esterase 2+ H (Negative) Urine WBC (Auto) 11-20 H (0-5) /hpf Urine RBC (Auto) 0-2 (0-2) /hpf U Hyaline Cast (Auto) 0-2 (0-2) /lpf U Epithel Cells (Auto) 3-5 H (0-2) /hpf Urine Bacteria (Auto) None Seen (None Seen) Urine Comment 01/22/25 Range/Units 19:50 WBC (4.8-10.8) K/ul RBC (4.20-5.40) M/uL Hgb (12.0-16.0) g/dl POC Hgb (12.0-16.0) g/dl Hct (37.0-47.0) % POC Hct (37-47) % MCV (80.0-100.0) fL MCH (25.0-34.0) pg MCHC (32.0-36.0) g/dL RDW Std Deviation (36.4-46.3) fL RDW Coeff of Rene (11.5-14.5) % Plt Count (130-400) K/uL MPV (9.4-12.4) fL Immature Gran % (Auto) % Neut % (Auto) % Lymph % (Auto) % [place] % (Auto) % Eos % (Auto) % Baso % (Auto) % Neut # (Auto) (1.40-6.50) K/uL Lymph # (Auto) (1.20-3.40) K/uL [place] # (Auto) (0.11-0.59) K/uL Eos # (Auto) (0.00-0.50) K/uL Baso # (Auto) (0.00-0.20) K/uL Immature Gran # (Auto) (0.01-0.20) K/uL PT (9.0-12.0) Seconds INR (0.9-1.1) POC Sodium (135-144) mmol/L Sodium (136-145) mmol/L POC Potassium (3.3-5.0) mmol/L Potassium (3.5-5.1) mmol/L POC Chloride (101-112) mmol/L Chloride (98-107) mmol/L Carbon Dioxide (21-32) mmol/L POC Total CO2 (24-31) mmol/L Anion Gap (3-11) POC Anion Gap (16-25) mmol/L POC BUN (7-18) mg/dl BUN (6-23) mg/dl Creatinine (0.6-1.2) mg/dl POC Creatinine (0.6-1.3) mg/dl Est Cr Clr Drug Dosing eGFR BUN/Creatinine Ratio (10-20) Glucose (70-99(Fasting)) mg/dl POC Glucose (other) (70-99) mg/dl Calcium (8.6-10.3) mg/dl POC Ioniz Calcium Rosa (1.12-1.32) mmol/l Phosphorus (2.5-4.9) mg/dl Magnesium (1.7-2.4) mg/dl Total Bilirubin (0.2-1.0) mg/dl Direct Bilirubin (0-0.2) mg/dl AST (13-39) U/L ALT (7-52) U/L Alkaline Phosphatase (34-104) U/L Ammonia 149.0 H (18-72) umol/L Troponin I High Sens (0-14) pg/ml Total Protein (6.0-8.3) gm/dl Albumin (3.4-5.0) gm/dl Globulin (2.5-4.0) gm/dl Albumin/Globulin Ratio (0.9-2) Lipase (11-82) U/L TSH (0.300-4.500) uIu/ml Urine Color Urine Appearance (Clear) Urine pH (4.5-7.5) Ur Specific [place] (1.000-1.030) Urine Protein (Negative) Urine Glucose (UA) (Negative) Urine Ketones (Negative) Urine Blood (Negative) Urine Nitrite (Negative) Urine Bilirubin (Negative) Urine Urobilinogen (Negative) Ur Leukocyte Esterase (Negative) Urine WBC (Auto) (0-5) /hpf Urine RBC (Auto) (0-2) /hpf U Hyaline Cast (Auto) (0-2) /lpf U Epithel Cells (Auto) (0-2) /hpf Urine Bacteria (Auto) (None Seen) Urine Comment Administered Medications Discontinued Medications Sodium Chloride (Nss) 500 mls @ 999 mls/hr IV .Q31M ONE Stop: 01/22/25 17:44 Last Infusion: 01/22/25 19:40 Dose: Infused Documented By: Admin: 01/22/25 17:44 Dose: 999 mls/hr Documented By: BEVERLY Ioversol (Optiray 320 100ml) 93 ml IV ONCE ONE Stop: 01/22/25 19:24 Last Admin: 01/22/25 19:23 Dose: 93 ml Documented By: STEFFI Lactulose (Lactulose Syrup 20 Gm/30 Ml Udc) 30 gm PO NOW STA Stop: 01/22/25 21:28 Last Admin: 01/22/25 21:42 Dose: 30 gm Documented By: JOHN Imaging Data Radiologist's Impression: Chest X-Ray 01/22/25 17:13 Chest radiograph, one view History: Chest pain Comparison: None Findings: Single AP view of the chest performed. No focal consolidation or pleural effusion. No pneumothorax. The cardiomediastinal silhouette is within normal limits. Normal pulmonary vascularity. No evidence for lymphadenopathy. No visualized bony or soft tissue abnormality. Impression: Normal chest radiograph Electronically signed by Doyle Fritz 01-22-2025 6:03 PM Abdomen/Pelvis CT 01/22/25 18:50 EXAMINATION: CT of the abdomen and pelvis performed after the administration of IV contrast TECHNIQUE: Helical CT images from the lung bases through the symphysis pubis were obtained with contrast. Coronal and sagittal reformatted images were generated at a workstation for further assessment. Dose reduction techniques were achieved by using automatic exposure control and/or adjustment of mA and/or kV according to patient size and/or use of iterative reconstruction technique. COMPARISON: 12/30/2024 HISTORY: Weakness FINDINGS: Lower chest: No consolidation. No pleural effusion or pneumothorax. Liver: Nodular contour of the liver compatible with cirrhosis. There is evidence of portal hypertension, including a recanalized periumbilical vein, and numerous periumbilical varices. Numerous periesophageal varices and splenorenal shunts. No suspicious liver lesions. Portal veins appear patent. Gallbladder: No gallstones. No evidence of acute cholecystitis. Spleen: Enlarged due to portal hypertension measuring 15.5 cm. Pancreas: No suspicious pancreatic lesions. The pancreatic duct is not dilated. Adrenal glands: No adrenal nodules. Kidneys: No hydronephrosis or obstructing renal stones. Bladder / Pelvic organs: An unchanged homogeneous, ovoid fluid collection in the right pelvis appears unchanged, and appears associated with surgical sutures, possibly a postoperative seroma in the setting of hysterectomy or salpingo-oophorectomy. Unremarkable urinary bladder. Bowel: No bowel obstruction. No abnormal bowel wall thickening. The appendix is unremarkable. Left colonic diverticulosis without diverticulitis. Roger-en-Y gastric bypass changes. Lymph nodes: No retroperitoneal, mesenteric, or pelvic lymphadenopathy. Peritoneum / Retroperitoneum: No free fluid or air within the abdomen. Vessels: No infrarenal aortic aneurysm. Bones and soft tissues: No suspicious lesion in the bones. Left hip arthroplasty IMPRESSION: Cirrhosis of the liver with evidence of portal hypertension. No acute findings or significant change. Electronically signed by Doyle Fritz 01-22-2025 7:[address] 01/22/25 18:50 CT head without contrast History: Dizziness Comparison: None Technique: Using multidetector thin collimation helical acquisition technique, axial, coronal and sagittal CT images from the skull base to the vertex were obtained without intravenous contrast. Dose reduction techniques were achieved by using automatic exposure control and/or adjustment of mA and/or kV according to patient size and/or use of iterative reconstruction technique. Findings: No intracranial hemorrhage, mass-effect, or midline shift. The ventricles are proportionate to the cerebral sulci. The webster to white matter differentiation of the cerebral hemispheres is preserved. The basal cisterns are patent. The visualized paranasal sinuses are clear. Mastoid air cells are clear. Impression: No acute intracranial pathology. Electronically signed by Doyle Fritz 01-22-2025 7:51 PM Discharge Plan Visit Data Chief Complaint: Illness Stated Complaint: SEEN 3-4 WKS AGO, SYMPTOMS RETURNING ED Provider: Devon Hoyos Discharge Problem: Acute hepatic encephalopathy, NAFLD (nonalcoholic fatty liver disease), Thrombocytopenia, Generalized weakness, Acute confusion Patient Disposition: Admitted As Inpatient Condition: Fair Discharge Instructions Interventions: ED Discharge Assessment Last Done: 01/22/25 23:55
[2025-01-22] MEDS: SODIUM CHLORIDE 0.9% 500 ML IV ONE (17:44)
[2025-01-22 17:50] LABS: Hematocrit (blood only) 32.7 % (37.0-47.0); Hemoglobin 10.7 g/dl (12.0-16.0); Immature Granulocytes # (auto) 0.01 K/uL (0.01-0.20); Immature Granulocytes % (auto) 0.3 %; Mean Corpuscular Hemoglobin 32.5 pg (25.0-34.0); Mean Corpuscular Volume 99.4 fL (80.0-100.0); Platelet Count 69 K/uL (130-400); RDW Standard Deviation 58.0 fL (36.4-46.3); Red Blood Count 3.29 M/uL (4.20-5.40); White Blood Count 2.97 K/ul (4.8-10.8)
--- NOTE | 2025-01-22 18:04 | XRay Report ---
Chest radiograph, one view History: Chest pain Comparison: None Findings: Single AP view of the chest performed. No focal consolidation or pleural effusion. No pneumothorax. The cardiomediastinal silhouette is within normal limits. Normal pulmonary vascularity. No evidence for lymphadenopathy. No visualized bony or soft tissue abnormality. Impression: Normal chest radiograph Electronically signed by Doyle Fritz 01-22-2025 6:03 PM
[2025-01-22 18:06] LABS: Albumin Globulin Ratio 0.9 (0.9-2); Albumin Level 2.9 gm/dl (3.4-5.0); Alkaline Phosphatase 150 U/L (34-104); Anion Gap 3 (3-11); Bilirubin,Total 4.3 mg/dl (0.2-1.0); Blood Urea Nitrogen 24 mg/dl (6-23); Calcium 8.5 mg/dl (8.6-10.3); Carbon Dioxide 29 mmol/L (21-32); Chloride 111 mmol/L (98-107); Globulin 3.1 gm/dl (2.5-4.0); Glucose 106 mg/dl (70-99(Fasting)); Lipase 30 U/L (11-82); Magnesium 1.9 mg/dl (1.7-2.4); Potassium 4.0 mmol/L (3.5-5.1); Sodium 143 mmol/L (136-145); Total Protein 6.0 gm/dl (6.0-8.3)
[2025-01-22 18:16] LABS: INR 1.3 (0.9-1.1); Prothrombin Time 13.9 Seconds (9.0-12.0)
[2025-01-22 18:20] LABS: Thyroid Stimulating Hormone 2.573 uIu/ml (0.300-4.500)
[2025-01-22 19:11] LABS: Appearance Urine Clear (Clear); Bacteria Urine Automated None Seen (None Seen); Cast Urine Automated 0-2 /lpf (0-2); Glucose Urine UA Negative (Negative); RBC Urine Automated 0-2 /hpf (0-2)
[2025-01-22] MEDS: OPTIRAY 320 100ml IV ONE (19:23)
--- NOTE | 2025-01-22 19:51 | CT Scan Report ---
CT head without contrast History: Dizziness Comparison: None Technique: Using multidetector thin collimation helical acquisition technique, axial, coronal and sagittal CT images from the skull base to the vertex were obtained without intravenous contrast. Dose reduction techniques were achieved by using automatic exposure control and/or adjustment of mA and/or kV according to patient size and/or use of iterative reconstruction technique. Findings: No intracranial hemorrhage, mass-effect, or midline shift. The ventricles are proportionate to the cerebral sulci. The webster to white matter differentiation of the cerebral hemispheres is preserved. The basal cisterns are patent. The visualized paranasal sinuses are clear. Mastoid air cells are clear. Impression: No acute intracranial pathology. Electronically signed by Doyle Fritz 01-22-2025 7:51 PM
--- NOTE | 2025-01-22 19:56 | CT Scan Report ---
EXAMINATION: CT of the abdomen and pelvis performed after the administration of IV contrast TECHNIQUE: Helical CT images from the lung bases through the symphysis pubis were obtained with contrast. Coronal and sagittal reformatted images were generated at a workstation for further assessment. Dose reduction techniques were achieved by using automatic exposure control and/or adjustment of mA and/or kV according to patient size and/or use of iterative reconstruction technique. COMPARISON: 12/30/2024 HISTORY: Weakness FINDINGS: Lower chest: No consolidation. No pleural effusion or pneumothorax. Liver: Nodular contour of the liver compatible with cirrhosis. There is evidence of portal hypertension, including a recanalized periumbilical vein, and numerous periumbilical varices. Numerous periesophageal varices and splenorenal shunts. No suspicious liver lesions. Portal veins appear patent. Gallbladder: No gallstones. No evidence of acute cholecystitis. Spleen: Enlarged due to portal hypertension measuring 15.5 cm. Pancreas: No suspicious pancreatic lesions. The pancreatic duct is not dilated. Adrenal glands: No adrenal nodules. Kidneys: No hydronephrosis or obstructing renal stones. Bladder / Pelvic organs: An unchanged homogeneous, ovoid fluid collection in the right pelvis appears unchanged, and appears associated with surgical sutures, possibly a postoperative seroma in the setting of hysterectomy or salpingo-oophorectomy. Unremarkable urinary bladder. Bowel: No bowel obstruction. No abnormal bowel wall thickening. The appendix is unremarkable. Left colonic diverticulosis without diverticulitis. Roger-en-Y gastric bypass changes. Lymph nodes: No retroperitoneal, mesenteric, or pelvic lymphadenopathy. Peritoneum / Retroperitoneum: No free fluid or air within the abdomen. Vessels: No infrarenal aortic aneurysm. Bones and soft tissues: No suspicious lesion in the bones. Left hip arthroplasty IMPRESSION: Cirrhosis of the liver with evidence of portal hypertension. No acute findings or significant change. Electronically signed by Doyle Fritz 01-22-2025 7:56 PM
[2025-01-22] MEDS: LACTULOSE SYRUP 20 GM/30 ML UDC PO STA (21:42)
[2025-01-22 22:57] LABS: Alanine Aminotransferase 21 U/L (7-52)
[2025-01-23] MEDS ORDERED: ONDANSETRON INJ 2 MG/ML 2 ML VIAL IV PRN (00:40)
[2025-01-23] MEDS ORDERED: ACETAMINOPHEN 325 MG TAB PO PRN (00:40)
--- NOTE | 2025-01-23 02:55 | History & Physical Report ---
Date of Service January 22, 2025 Assessment & Plan (1) Acute hepatic encephalopathy: (2) NAFLD (nonalcoholic fatty liver disease): (3) Cirrhosis: Plan 69-year-old female presenting with 1 day of confusion, generalized weakness, ambulatory dysfunction. #Acute hepatic encephalopathy/nonalcoholic fatty liver disease/cirrhosispatient with nonalcoholic fatty liver disease presenting with confusion. Consistent with acute hepatic encephalopathy. INR has been stable at 1.3. Total bilirubin, direct bilirubin, AST and alkaline phosphatase all within Baseline range. No prior ammonia levels obtained. Elevated today at 149. Patient with asterixis as well. Urine is consistent with liver disease with bilirubin urobilinogen present. reports patient is compliant with her her lactuloseShe is written for 30 mg in the morning and 20 mg in the evening. Patient's was recently hospitalized for a vascular surgery. Consider possibly patient missed some medications while her was in the hospital? Not confirmed EGD 08/31/2024 with grade 1 esophageal varices, gastric bypass present with healthy-appearing mucosa. Normal jejunum. Admit to medical increase lactulose to 30 g p.o. 3 times dailytitrate to 2-3 soft bowel movements daily Continue spironolactone 25 mg p.o. every morning Continue Lasix 40 mg p.o. every morning and 20 mg p.o. at 1300. Patient with chronic bilateral lower extremity edema. No ascites on exam or imaging. Continue carvedilol 3.125 mg p.o. twice daily For history of varices Frequent orientation Repeat LFTs and INR in the morning #Low-sodium diet #Heparin 5000 units twice daily for DVT prophylaxismonitor platelets Admission and Anticipated Discharge Date Admission Date: January 22, 2025 History of Present Illness Chief Complaint: confusion Primary Care Provider: Marissa Alvarado PA-C Tyler is a 69-year-old female with history of nonalcoholic fatty liver disease, prior DVT presenting with confusion, generalized weakness, inability to walk, shaking and inability to focus. Her is at bedside and assists with the history. He states that earlier today he noted that she was confused and not acting correctly. Since coming to the hospital her mental state has declined. expresses frustration as patient has been to the hospital 4 times in the last 3 to 4 months with similar. She complains of very mild abdominal pain, chills and nonbloody diarrhea. Otherwise denies fever, chest pain, palpitations, cough, shortness of breath, nausea/vomiting. Denies worsening edema, abdominal distention, melena/hematochezia or hematemesis. In the ER patient is afebrile, hemodynamically stable Allergies Allergy/AdvReac Type Severity Reaction Status Date / Time No Known Allergies Allergy Verified 12/31/24 02:19 Home Medications Medication Instructions Recorded Confirmed Type aspirin 81 mg tablet,delayed 81 mg PO QAM 11/17/23 01/22/25 History release furosemide 20 mg tablet (Lasix) 40 mg PO QAM 08/18/24 01/22/25 History lactulose 10 gram/15 mL oral 30 g PO QAM 08/18/24 01/22/25 History solution cholecalciferol (vitamin D3) 125 125 mcg PO QAM 12/31/24 01/22/25 History mcg (5,000 unit) capsule ferrous sulfate 325 mg (65 mg 325 mg PO DAILY 12/31/24 01/22/25 History iron) tablet (FeroSul) furosemide 20 mg tablet 20 mg PO .Q AFTERNOON 12/31/24 01/22/25 History lactulose 10 gram/15 mL oral 20 ml PO QPM 12/31/24 01/22/25 History solution potassium chloride 10 mEq 10 meq PO QAM 12/31/24 01/22/25 History capsule,extended release spironolactone 25 mg tablet 25 mg PO QAM 12/31/24 01/22/25 History vitamin B12 2,500 mcg-folic acid 1 tab PO QAM 12/31/24 01/22/25 History 400 mcg disintegrating tablet zinc gluconate 50 mg tablet 50 mg PO QAM 12/31/24 01/22/25 History carvedilol 3.125 mg tablet 3.125 mg PO BID #30 tabs 01/01/25 01/22/25 Rx solifenacin 5 mg tablet 5 mg PO DAILY 01/22/25 01/22/25 History Past Med/Surg History Problem List Acute hepatic encephalopathy (Acute) Thrombocytopenia Hypomagnesemia (Acute) Acute UTI (urinary tract infection) (Acute) Generalized weakness (Acute) History of diverticulitis Diarrhea Postoperative back pain (Acute) Right leg swelling (Acute) S/P spinal surgery Neurogenic claudication due to lumbar spinal stenosis Cirrhosis Portal hypertension NAFLD (nonalcoholic fatty liver disease) Medical History History of diverticulitis no hospitalizations - no current issues Systolic murmur Hx of iron deficiency anemia has had 2 iron infusions in the past Hx of portal hypertension NAFLD (nonalcoholic fatty liver disease) as per patient following with Demi Price "liver doctor" - did see [facility] [place] [facility] 05/2024 Cirrhosis as per patient following with Demi RUBY "liver doctor" - did see [facility] 05/2024 Arthritis Hx of deep venous thrombosis (~2019) left foot s/p hip surgery (was on blood thinner for 6 months) Heart murmur 01/2023; f/u dr. miranda, cardio "nothing of concern" as per patient Surgical History History of lumbar surgery (10/2023) Hardware present History of open reduction and internal fixation (ORIF) procedure right femur Hx of tooth extraction all top teeth-wears top denture History of bladder surgery sling History of hip surgery left side>repaired after fx History of cholecystectomy History of appendectomy H/O abdominal surgery removed sac formed in abdominal region with cauterization *long time ago Trail teeth removed History of cataract surgery Bilateral Nausea and vomiting after administration of anesthetic agent denies needing scop patch H/O colonoscopy History of esophagogastroduodenoscopy (EGD) H/O gastric bypass 2014 *lost 135lbs Family History Mother Dementia Son Crohn's disease Other Heart disease No family history of adverse response to anesthesia Denies family history of Colorectal cancer Ulcerative colitis Social History Smoking Status: Never smoker Second Hand Exposure: No; Do You Dip or Chew Tobacco: No; Hx Alcohol Use: No Hx Substance Use: No Preferred Language: Greenlandic Communication Ability: Effective Lead Engineer Required: No Beliefs That Will Affect Care: None Current Living Situation: Spouse Other Information That Helps Us Care for You: No Feels Safe at Home: Yes Safety Concerns: Feels Safe At This Time Assistive Devices: None Review of Systems Review of Systems: All systems reviewed & are unremarkable except as noted in HPI & below Physical Exam Physical Exam: General: patient resting comfortably, NAD, non-toxic in appearance, AA&O to person and location, confused on date/time Skin: mild jaundice noted HEENT: NC/AT, PERRL, EOMI, + icteric sclera, conjunctiva without injection, external ear normal to inspection and nontender, nares patent, dry mucus membranes, dentition intact, no oropharyngeal lesions, neck supple, trachea midline, no LAD, no thyromegaly, no JVD Heart: +S1/S2, regular, no m/r/g Lungs: equal air entry bilaterally, no rales/rhonchi/wheezes Abd: +BS, soft, NT/ND, no masses/organomegaly/ascites Ext: warm, 2+ pulses in UE/LE bilaterally, no clubbing/cyanosis, chronic edema Neuro: nonfocal, patient AA&O to person and location, speech intact, no facial droop, moving all extremities on command with equal strength 5/5, +asterixis Results & Data Results & Data Vital Signs (Past 12 Hours) Vital Signs Temp Pulse Pulse Resp BP BP Pulse Ox 01/23/25 00:48 01/23/25 00:48 36.7 C 60 125/74 96 01/22/25 23:55 36.6 C 01/22/25 23:00 68 15 97 01/22/25 22:42 66 15 96 01/22/25 22:06 70 19 95 01/22/25 22:02 115/63 01/22/25 21:36 67 14 92 01/22/25 21:30 133/76 01/22/25 21:24 62 12 94 01/22/25 21:21 62 01/22/25 21:00 61 13 115/59 L 95 01/22/25 20:33 63 13 115/60 95 01/22/25 20:03 64 12 133/69 95 01/22/25 19:51 67 16 127/94 96 01/22/25 19:02 64 12 128/81 95 01/22/25 18:06 62 16 121/70 97 01/22/25 17:40 01/22/25 17:14 65 01/22/25 17:10 01/22/25 16:57 18 01/22/25 16:57 36.6 C 63 18 126/66 97 O2 Del Method 01/23/25 00:48 Room Air 01/23/25 00:48 Room Air 01/22/25 23:55 01/22/25 23:00 Room Air 01/22/25 22:42 Room Air 01/22/25 22:06 Room Air 01/22/25 22:02 01/22/25 21:36 Room Air 01/22/25 21:30 01/22/25 21:24 Room Air 01/22/25 21:21 01/22/25 21:00 Room Air 01/22/25 20:33 Room Air 01/22/25 20:03 Room Air 01/22/25 19:51 Room Air 01/22/25 19:02 Room Air 01/22/25 18:06 Room Air 01/22/25 17:40 Room Air 01/22/25 17:14 01/22/25 17:10 Room Air 01/22/25 16:57 01/22/25 16:57 Room Air Laboratory Results Laboratory Results WBC 2.97 K/ul (4.8-10.8) L 01/22/25 17:30 RBC 3.29 M/uL (4.20-5.40) L 01/22/25 17:30 Hgb 10.7 g/dl (12.0-16.0) L 01/22/25 17:30 POC Hgb 10.5 g/dl (12.0-16.0) L 01/22/25 17:37 Hct 32.7 % (37.0-47.0) L 01/22/25 17:30 POC Hct 31 % (37-47) L 01/22/25 17:37 MCV 99.4 fL (80.0-100.0) 01/22/25 17:30 MCH 32.5 pg (25.0-34.0) 01/22/25 17:30 MCHC 32.7 g/dL (32.0-36.0) 01/22/25 17:30 RDW Std Deviation 58.0 fL (36.4-46.3) H 01/22/25 17:30 RDW Coeff of Rene 15.8 % (11.5-14.5) H 01/22/25 17:30 Plt Count 69 K/uL (130-400) L 01/22/25 17:30 MPV 10.9 fL (9.4-12.4) 01/22/25 17:30 Immature Gran % (Auto) 0.3 % 01/22/25 17:30 Neut % (Auto) 52.6 % 01/22/25 17:30 Lymph % (Auto) 33.3 % 01/22/25 17:30 [place] % (Auto) 10.4 % 01/22/25 17:30 Eos % (Auto) 2.7 % 01/22/25 17:30 Baso % (Auto) 0.7 % 01/22/25 17:30 Neut # (Auto) 1.56 K/uL (1.40-6.50) 01/22/25 17:30 Lymph # (Auto) 0.99 K/uL (1.20-3.40) L 01/22/25 17:30 [place] # (Auto) 0.31 K/uL (0.11-0.59) 01/22/25 17:30 Eos # (Auto) 0.08 K/uL (0.00-0.50) 01/22/25 17:30 Baso # (Auto) 0.02 K/uL (0.00-0.20) 01/22/25 17:30 Immature Gran # (Auto) 0.01 K/uL (0.01-0.20) 01/22/25 17:30 PT 13.9 Seconds (9.0-12.0) H 01/22/25 17:30 INR 1.3 (0.9-1.1) H 01/22/25 17:30 POC Sodium 145 mmol/L (135-144) H 01/22/25 17:37 Sodium 143 mmol/L (136-145) 01/22/25 17:30 POC Potassium 3.9 mmol/L (3.3-5.0) 01/22/25 17:37 Potassium 4.0 mmol/L (3.5-5.1) 01/22/25 17:30 POC Chloride 108 mmol/L (101-112) 01/22/25 17:37 Chloride 111 mmol/L (98-107) H 01/22/25 17:30 Carbon Dioxide 29 mmol/L (21-32) 01/22/25 17:30 POC Total CO2 25 mmol/L (24-31) 01/22/25 17:37 Anion Gap 3 (3-11) 01/22/25 17:30 POC Anion Gap 16.0 mmol/L (16-25) 01/22/25 17:37 POC BUN 23 mg/dl (7-18) H 01/22/25 17:37 BUN 24 mg/dl (6-23) H 01/22/25 17:30 Creatinine 0.73 mg/dl (0.6-1.2) 01/22/25 17:30 POC Creatinine 0.8 mg/dl (0.6-1.3) 01/22/25 17:37 Est Cr Clr Drug Dosing Not Reportable 01/22/25 17:30 eGFR 87.87 01/22/25 17:30 BUN/Creatinine Ratio 32.9 (10-20) H 01/22/25 17:30 Glucose 106 mg/dl (70-99(Fasting)) H 01/22/25 17:30 POC Glucose (other) 103 mg/dl (70-99) H 01/22/25 17:37 Calcium 8.5 mg/dl (8.6-10.3) L 01/22/25 17:30 POC Ioniz Calcium Rosa 1.13 mmol/l (1.12-1.32) 01/22/25 17:37 Phosphorus 2.9 mg/dl (2.5-4.9) 01/22/25 17:30 Magnesium 1.9 mg/dl (1.7-2.4) 01/22/25 17:30 Total Bilirubin 4.3 mg/dl (0.2-1.0) H 01/22/25 17:30 Direct Bilirubin 1.0 mg/dl (0-0.2) H 01/22/25 17:30 AST 49 U/L (13-39) H 01/22/25 17:30 ALT 21 U/L (7-52) 01/22/25 17:30 Alkaline Phosphatase 150 U/L (34-104) H 01/22/25 17:30 Ammonia 149.0 umol/L (18-72) H 01/22/25 19:50 Troponin I High Sens 5.9 pg/ml (0-14) 01/22/25 17:30 Total Protein 6.0 gm/dl (6.0-8.3) 01/22/25 17:30 Albumin 2.9 gm/dl (3.4-5.0) L 01/22/25 17:30 Globulin 3.1 gm/dl (2.5-4.0) 01/22/25 17:30 Albumin/Globulin Ratio 0.9 (0.9-2) 01/22/25 17:30 Lipase 30 U/L (11-82) 01/22/25 17:30 TSH 2.573 uIu/ml (0.300-4.500) 01/22/25 17:30 Urine Color Dark Yellow 01/22/25 18:40 Urine Appearance Clear (Clear) 01/22/25 18:40 Urine pH 6.5 (4.5-7.5) 01/22/25 18:40 Ur Specific Wittmann 1.024 (1.000-1.030) 01/22/25 18:40 Urine Protein Negative (Negative) 01/22/25 18:40 Urine Glucose (UA) Negative (Negative) 01/22/25 18:40 Urine Ketones Trace (Negative) H 01/22/25 18:40 Urine Blood Negative (Negative) 01/22/25 18:40 Urine Nitrite Negative (Negative) 01/22/25 18:40 Urine Bilirubin 1+ (Negative) H 01/22/25 18:40 Urine Urobilinogen Positive (Negative) H 01/22/25 18:40 Ur Leukocyte Esterase 2+ (Negative) H 01/22/25 18:40 Urine WBC (Auto) 11-20 /hpf (0-5) H 01/22/25 18:40 Urine RBC (Auto) 0-2 /hpf (0-2) 01/22/25 18:40 U Hyaline Cast (Auto) 0-2 /lpf (0-2) 01/22/25 18:40 U Epithel Cells (Auto) 3-5 /hpf (0-2) H 01/22/25 18:40 Urine Bacteria (Auto) None Seen (None Seen) 01/22/25 18:40 Urine Comment 01/22/25 18:40 Impressions Chest X-Ray 01/22/25 17:13 Chest radiograph, one view History: Chest pain Comparison: None Findings: Single AP view of the chest performed. No focal consolidation or pleural effusion. No pneumothorax. The cardiomediastinal silhouette is within normal limits. Normal pulmonary vascularity. No evidence for lymphadenopathy. No visualized bony or soft tissue abnormality. Impression: Normal chest radiograph Electronically signed by Doyle Fritz 01-22-2025 6:03 PM Abdomen/Pelvis CT 01/22/25 18:50 EXAMINATION: CT of the abdomen and pelvis performed after the administration of IV contrast TECHNIQUE: Helical CT images from the lung bases through the symphysis pubis were obtained with contrast. Coronal and sagittal reformatted images were generated at a workstation for further assessment. Dose reduction techniques were achieved by using automatic exposure control and/or adjustment of mA and/or kV according to patient size and/or use of iterative reconstruction technique. COMPARISON: 12/30/2024 HISTORY: Weakness FINDINGS: Lower chest: No consolidation. No pleural effusion or pneumothorax. Liver: Nodular contour of the liver compatible with cirrhosis. There is evidence of portal hypertension, including a recanalized periumbilical vein, and numerous periumbilical varices. Numerous periesophageal varices and splenorenal shunts. No suspicious liver lesions. Portal veins appear patent. Gallbladder: No gallstones. No evidence of acute cholecystitis. Spleen: Enlarged due to portal hypertension measuring 15.5 cm. Pancreas: No suspicious pancreatic lesions. The pancreatic duct is not dilated. Adrenal glands: No adrenal nodules. Kidneys: No hydronephrosis or obstructing renal stones. Bladder / Pelvic organs: An unchanged homogeneous, ovoid fluid collection in the right pelvis appears unchanged, and appears associated with surgical sutures, possibly a postoperative seroma in the setting of hysterectomy or salpingo-oophorectomy. Unremarkable urinary bladder. Bowel: No bowel obstruction. No abnormal bowel wall thickening. The appendix is unremarkable. Left colonic diverticulosis without diverticulitis. Roger-en-Y gastric bypass changes. Lymph nodes: No retroperitoneal, mesenteric, or pelvic lymphadenopathy. Peritoneum / Retroperitoneum: No free fluid or air within the abdomen. Vessels: No infrarenal aortic aneurysm. Bones and soft tissues: No suspicious lesion in the bones. Left hip arthroplasty IMPRESSION: Cirrhosis of the liver with evidence of portal hypertension. No acute findings or significant change. Electronically signed by Doyle Fritz 01-22-2025 7:[address] 01/22/25 18:50 CT head without contrast History: Dizziness Comparison: None Technique: Using multidetector thin collimation helical acquisition technique, axial, coronal and sagittal CT images from the skull base to the vertex were obtained without intravenous contrast. Dose reduction techniques were achieved by using automatic exposure control and/or adjustment of mA and/or kV according to patient size and/or use of iterative reconstruction technique. Findings: No intracranial hemorrhage, mass-effect, or midline shift. The ventricles are proportionate to the cerebral sulci. The webster to white matter differentiation of the cerebral hemispheres is preserved. The basal cisterns are patent. The visualized paranasal sinuses are clear. Mastoid air cells are clear. Impression: No acute intracranial pathology. Electronically signed by Doyle Fritz 01-22-2025 7:51 PM Code Status & VTE Plan VTE Prophylaxis Plan VTE Prophylaxis will be ordered: Yes PG Care Time/CCT Total # of Minutes Spent Total Time Spent with Patient: Total time spent is greater than 50% in coordination of care (as documented) at patient's floor/unit and/or counseling patient: Coding Level of Care Code 32918 INT INP/OBS CARE 3/75MIN Diagnoses Acute hepatic encephalopathy K76.82 NAFLD (nonalcoholic fatty liver disease) K76.0 Cirrhosis K74.60
[2025-01-23 03:48] VITALS: RESP 18
[2025-01-23 06:44] LABS: Hematocrit (blood only) 29.4 % (37.0-47.0); Hemoglobin 9.4 g/dl (12.0-16.0); Mean Corpuscular Hemoglobin 32.2 pg (25.0-34.0); Mean Corpuscular Volume 100.7 fL (80.0-100.0); Platelet Count 61 K/uL (130-400); RDW Standard Deviation 58.0 fL (36.4-46.3); Red Blood Count 2.92 M/uL (4.20-5.40); White Blood Count 2.56 K/ul (4.8-10.8)
[2025-01-23 07:29] LABS: Alanine Aminotransferase 18.0 U/L (7-52); Albumin Level 2.4 gm/dl (3.4-5.0); Alkaline Phosphatase 120.0 U/L (34-104); Anion Gap 4.0 (3-11); Bilirubin,Total 4.2 mg/dl (0.2-1.0); Blood Urea Nitrogen 21.0 mg/dl (6-23); Calcium 8.1 mg/dl (8.6-10.3); Carbon Dioxide 25.0 mmol/L (21-32); Chloride 114.0 mmol/L (98-107); Creatinine Clr Calc Pharmacy 115.3 ml/min; Glucose 90.0 mg/dl (70-99(Fasting)); Potassium 3.8 mmol/L (3.5-5.1); Sodium 143.0 mmol/L (136-145); Total Protein 5.2 gm/dl (6.0-8.3)
[2025-01-23 07:48] LABS: INR 1.4 (0.9-1.1); Prothrombin Time 14.6 Seconds (9.0-12.0)
[2025-01-23] MEDS: FUROSEMIDE 40 MG TAB PO SCH (08:13)
[2025-01-23] MEDS: HEPARIN SOD 5,000 UNIT/0.5 ML VIAL SQ SCH (08:13)
[2025-01-23] MEDS: ASPIRIN 81 MG ECTAB PO SCH (08:13)
[2025-01-23] MEDS: LACTULOSE SYRUP 20 GM/30 ML UDC PO SCH (08:13)
[2025-01-23] MEDS: SPIRONOLACTONE 25 MG TAB PO SCH (08:13)
--- NOTE | 2025-01-23 11:15 | Communication Note ---
Date of Service: January 23, 2025 Patient seen and examined. Daughter in law at bedside. Asterixis on exam. Reports not back to baseline but much improved. Will add rifaximin. Also notes w orsening leg swelling although overall weight is down. Cr 0.52. Will increase spironolactone to 50mg PO daily. PT/OT already ordered. just came out of hospital and will need to make sure patient is much closer to baseline prior to discharge.
--- NOTE | 2025-01-23 11:52 | Electrocardiogram Report ---
Test Reason : Blood Pressure : */* mmHG Vent. Rate : 60 BPM Atrial Rate : 60 BPM P-R Int : 182 ms QRS Dur : 114 ms QT Int : 488 ms P-R-T Axes : 16 -26 47 degrees QTcB Int : 488 ms Normal sinus rhythm Minimal voltage criteria for LVH, may be normal variant Borderline ECG When compared with ECG of 30-Dec-2024 20:29, No significant change was found Confirmed by Filemon Navarro ([id number]) on 01/23/2025 11:51:39 AM Referred By: REFERRED SELF Confirmed By: Filemon Navarro
[2025-01-23] MEDS: SPIRONOLACTONE 25 MG TAB PO ONE (11:53)
[2025-01-23] MEDS: FUROSEMIDE 20 MG TAB PO SCH (12:52)
[2025-01-24] MEDS: SPIRONOLACTONE 25 MG TAB PO SCH (08:30)
[2025-01-24 12:23] LABS: Anion Gap 3.0 (3-11); Blood Urea Nitrogen 15.0 mg/dl (6-23); Calcium 8.7 mg/dl (8.6-10.3); Carbon Dioxide 30.0 mmol/L (21-32); Chloride 110.0 mmol/L (98-107); Creatinine Clr Calc Pharmacy 81.2 ml/min; Glucose 76.0 mg/dl (70-99(Fasting)); Potassium 3.9 mmol/L (3.5-5.1); Sodium 143.0 mmol/L (136-145)
--- NOTE | 2025-01-25 07:11 | Hospitalist Progress Note ---
Date of Service January 24, 2025 Assessment & Plan (1) Acute hepatic encephalopathy: (2) NAFLD (nonalcoholic fatty liver disease): (3) Cirrhosis: Plan 69-year-old female presenting with 1 day of confusion, generalized weakness, ambulatory dysfunction. #Acute hepatic encephalopathy/nonalcoholic fatty liver disease/cirrhosis Improving but not yet back to baseline increase lactulose to 30 g p.o. 3 times dailytitrate to 2-3 soft bowel movements daily Increased spironolactone to 50mg PO daily Continue Lasix 40 mg p.o. every morning and 20 mg p.o. at 1300. Patient with chronic bilateral lower extremity edema. No ascites on exam or imaging. Continue carvedilol 3.125 mg p.o. twice daily For history of varices Frequent orientation #Low-sodium diet #Heparin 5000 units twice daily for DVT prophylaxis #Disposition - continue on med/surg, awaiting PT/OT evals Admission and Anticipated Discharge Date Admission Date: January 22, 2025 Subjective Improving but not yet back to baseline and using a rolling walker which is new for her, yet to be seen by PT. 4 BM yesterday per RN. Physical Exam Respiratory: normal respiratory effort, lungs clear to auscultation Cardiovascular: RRR, no murmur, no edema Gastrointestinal (Abdomen): normal bowel sounds, soft, nontender, no hepatosplenomegaly Neurologic: Motor/Sensory: + asterixis (mild on left side only) Psychiatric: A+Ox3, euthymic affect Results & Data Results & Data Vital Signs (Past 12 Hours) Vital Signs Temp Pulse Resp BP Pulse Ox O2 Del Method 01/24/25 22:33 36.8 C 68 18 113/68 94 Room Air PG Care Time/CCT Total # of Minutes Spent Total Time Spent with Patient: Total time spent is greater than 50% in coordination of care (as documented) at patient's floor/unit and/or counseling patient: Coding Level of Care Code 80525 SUB INP/OBS CARE 2/35MIN Diagnoses Acute hepatic encephalopathy K76.82 NAFLD (nonalcoholic fatty liver disease) K76.0 Cirrhosis K74.60
[2025-01-25 07:17] VITALS: BP 93/54; PULSE 60; TEMP 98.1; O2SAT 95
[2025-01-25 07:35] LABS: Anion Gap 3.0 (3-11); Blood Urea Nitrogen 15.0 mg/dl (6-23); Calcium 8.1 mg/dl (8.6-10.3); Carbon Dioxide 30.0 mmol/L (21-32); Chloride 108.0 mmol/L (98-107); Creatinine Clr Calc Pharmacy 93.9 ml/min; Glucose 91.0 mg/dl (70-99(Fasting)); Potassium 3.9 mmol/L (3.5-5.1); Sodium 141.0 mmol/L (136-145)
[2025-01-25 08:03] LABS: Hematocrit (blood only) 28.3 % (37.0-47.0); Hemoglobin 9.1 g/dl (12.0-16.0); Mean Corpuscular Hemoglobin 32.4 pg (25.0-34.0); Mean Corpuscular Volume 100.7 fL (80.0-100.0); Platelet Count 51 K/uL (130-400); RDW Standard Deviation 57.6 fL (36.4-46.3); Red Blood Count 2.81 M/uL (4.20-5.40); White Blood Count 2.00 K/ul (4.8-10.8)
[2025-01-25 08:07] LABS: Alanine Aminotransferase 18.0 U/L (7-52); Albumin Level 2.4 gm/dl (3.4-5.0); Alkaline Phosphatase 118.0 U/L (34-104); Bilirubin,Total 4.2 mg/dl (0.2-1.0); Total Protein 5.1 gm/dl (6.0-8.3)
--- NOTE | 2025-01-25 13:35 | Discharge Summary ---
Discharge Summary Date of Service January 25, 2025 Principal Dx & Hospital Course #1 = Principal Diagnosis (1) Acute hepatic encephalopathy: (2) NAFLD (nonalcoholic fatty liver disease): (3) Cirrhosis: Plan Suellen Arias is a 69 year old female admitted to [facility] from January 23 to 2024 due to confusion, lethargy, disorientation and ambulatory dysfunction. Laboratory evaluation revealed elevated ammonia levels and evidence of hepatic dysfunction consistent with hepatic encephalopathy in the setting of known cirrhosis. No precipitating factors were found such as infection, constipation, gastrointestinal bleeding, medication nonadherence, electrolyte disturbance. She was treated with lactulose 30 g 3 times a day and started on rifaximin 550 mg twice a day. She improved back to her baseline over 2 days. Recommend continuing these medications to aim for four bowel movements a day. Recommend stopping iron supplementation as this can cause constipation therefore more likely to get hepatic encephalopathy on this. If she needs further iron supplementation recommend this is organized through her primary care doctor intravenously. She also received nutrition information from dietitian. Her leg swelling is likely somewhat due to venous insufficiency which does not respond well to diuretics however spironolactone was increased during hospitalization which she tolerated well without hyperkalemia or worsening renal function or dizziness therefore we will continue on this increased dose on discharge. Recommend following up with her primary care physician to monitor potassium levels and uptitrate spironolactone as able.. Notes For Next Care Provider Follow-up iron studies and arrange outpatient iron transfusions as needed Follow-up blood pressure check and BMP to monitor potassium levels with increased dose of spironolactone Uptitrate spironolactone as able Need Xifaxan ongoing prescription as only provided with 1 month of treatment Adjust lactulose to aim for 4 bowel movements a day Medication Changes From Visit Spironolactone increased (25 to 50 mg daily) to help with significant leg edema Started rifaximin and increase lactulose dosing for hepatic encephalopathy Holding iron supplementation to avoid constipation Admission HPI Per Admitting Provider Tyler is a 69-year-old female with history of nonalcoholic fatty liver disease, prior DVT presenting with confusion, generalized weakness, inability to walk, shaking and inability to focus. Her is at bedside and assists with the history. He states that earlier today he noted that she was confused and not acting correctly. Since coming to the hospital her mental state has declined. expresses frustration as patient has been to the hospital 4 times in the last 3 to 4 months with similar. She complains of very mild abdominal pain, chills and nonbloody diarrhea. Otherwise denies fever, chest pain, palpitations, cough, shortness of breath, nausea/vomiting. Denies worsening edema, abdominal distention, melena/hematochezia or hematemesis. In the ER patient is afebrile, hemodynamically stable Discharge Exam Respiratory normal respiratory effort, lungs clear to auscultation Cardiovascular Rate/Rhythm: regular rate and regular rhythm Extremities: + pedal edema Gastrointestinal (Abdomen) normal bowel sounds, soft, nontender, no hepatosplenomegaly Neurologic Motor/Sensory: no asterixis Psychiatric A+Ox3, euthymic affect Discharge Plan Discharge Items Patient Disposition: Home - Self-Care Reason For Visit: CONFUSION, HEPATIC ENCEPHALOPATHY Discharge Diagnosis: Hepatic encephalopathy Condition on Discharge: Fair Activity: Resume your previous activity Non-emergency contact: Primary Care Provider Call non-emergency contact if: you have any medication questions and your symptoms worsen Follow-up/Referrals: Marissa Alvarado PA-C [Primary Care Provider] - Diet: Regular Addtl Attending Provider Instructions: You were admitted to [facility] from January 23 to 2024 due to confusion, lethargy, disorientation and ambulatory dysfunction. Laboratory evaluation revealed elevated ammonia levels and evidence of hepatic dysfunction consistent with hepatic encephalopathy in the setting of known cirrhosis. No precipitating factors were found such as infection, constipation, gastrointestinal bleeding, medication nonadherence, electrolyte disturbance. You were treated with lactulose 30 g 3 times a day and started on rifaximin 550 mg twice a day. Recommend continuing these medications to aim for four bowel movements a day. Recommend stopping iron supplementation as this can cause constipation therefore more likely to get hepatic encephalopathy on this. If you need further iron supplementation recommend this is organized through your primary care doctor intravenously. You also received nutrition information from dietitian. You made significant progress during admission and are now back to baseline. Your recovery from hepatic encephalopathy shows that your liver and body still respond well to treatment. Please stay on top of your medications, avoid alcohol and keeping up with follow-up visits will be rice in preventing this from happen ing again. Continue to adjust lactulose to aim for 4 bowel movements a day. Your leg swelling is somewhat due to venous insufficiency which does not respond well to diuretics however you are tolerating any increased dose of spironolactone at this time and recommend continuing this as long as you do not feel dizzy or lightheaded when standing. This medication can increase your potassium levels and recommend following up with your primary care doctor for repeat blood tests to monitor this. Pending Studies at Discharge: No Stand-Alone Forms: My [facility] Digital Perception, Smoking Cessation Medications and DC Order Prescriptions: New lactulose 10 gram/15 mL Solution 30 g PO TID Qty: 946 0RF Xifaxan 550 mg Tablet 550 mg PO BID Qty: 60 0RF Continued furosemide [Lasix] 20 mg tablet 40 mg PO QAM Rx Instructions: TAKE TWO TABLETS EVERY AM furosemide 20 mg tablet 20 mg PO .Q AFTERNOON Rx Instructions: TAKE ONE TABLET DAILY AT 1PM, IN ADDITION TO TAKING TWO 20MG TABLETS IN THE AM. potassium chloride 10 mEq capsule, extended release 10 meq PO QAM zinc gluconate 50 mg Tablet 50 mg PO QAM cholecalciferol (vitamin D3) 125 mcg (5,000 unit) Capsule 125 mcg PO QAM vitamin [id number] acid 2,500-400 mcg Tablet,Disintegrating 1 tab PO QAM carvedilol 3.125 mg Tablet 3.125 mg PO BID Qty: 30 0RF solifenacin 5 mg tablet 5 mg PO DAILY aspirin 81 mg Tablet,Delayed Release (Dr/Ec) 81 mg PO QAM Changed spironolactone 25 mg tablet 50 mg PO QAM Qty: 0 0RF Discontinued lactulose 10 gram/15 mL Solution 30 g PO QAM lactulose 10 gram/15 mL solution 20 ml PO QPM ferrous sulfate [FeroSul] 325 mg (65 mg iron) tablet 325 mg PO DAILY Discharge Orders: Discharge Order (Routine); Ordered 01/25/25 Ordered By: Michael Clemens/Other Patient Handouts: Spironolactone Oral Tablet, Lactulose Oral Solution, Rifaximin Oral Tablet, Hepatic Encephalopathy Admission Data Admit Date/Time: 01/22/25 22:20 Attending Provider: Michael Mckinley Admit Provider: Ludy Hanson Primary Care Provider: Marissa Alvarado Other Providers: Ludy Hanson Other Interventions: Discharge Summary Assessment (RN) Last Done: 01/25/25 13:53 Hospital Stay Data Consultations 01/22/25 21:34 ED Decision to Admit Stat Diagnostic Imagining Performed 01/22/25 18:50 CT abd pelvis IV con only Stat CT head/brain wo con Stat Pending Results Patient Have Any Pending Studies at Discharge: No Discharge Instructions Given to Patient (Per Discharging Provider) You were admitted to [facility] from January 23 to 2024 due to confusion, lethargy, disorientation and ambulatory dysfunction. Laboratory evaluation revealed elevated ammonia levels and evidence of hepatic dysfunction consistent with hepatic encephalopathy in the setting of known cirrhosis. No precipitating factors were found such as infection, constipation, gastrointestinal bleeding, medication nonadherence, electrolyte disturbance. You were treated with lactulose 30 g 3 times a day and started on rifaximin 550 mg twice a day. Recommend continuing these medications to aim for four bowel movements a day. Recommend stopping iron supplementation as this can cause constipation therefore more likely to get hepatic encephalopathy on this. If you need further iron supplementation recommend this is organized through your primary care doctor intravenously. You also received nutrition information from dietitian. You made significant progress during admission and are now back to baseline. Your recovery from hepatic encephalopathy shows that your liver and body still respond well to treatment. Please stay on top of your medications, avoid alcohol and keeping up with follow-up visits will be rice in preventing this from happening again. Continue to adjust lactulose to aim for 4 bowel movements a day. Your leg swelling is somewhat due to venous insufficiency which does not respond well to diuretics however you are tolerating any increased dose of spironolactone at this time and recommend continuing this as long as you do not feel dizzy or lightheaded when standing. This medication can increase your potassium levels and recommend following up with your primary care doctor for repeat blood tests to monitor this. Total Time Total Time Spent Total Time Spent (In Minutes): 50 Total Time Includes: Examination of the Patient, Discharge Planning, Medication Reconciliation and Communication With Other Providers (PT/OT) Coding Level of Care Code 67584 INP/OBS DISCH >30 MIN Diagnoses Acute hepatic encephalopathy K76.82 NAFLD (nonalcoholic fatty liver disease) K76.0 Cirrhosis K74.60
== END 2025-01-25 14:21 | disposition home or self-care (01) | DRG 442 ==
LOC: ED 16:56 → 2W 22:20 → SUATTDRO 22:20 → 2W 23:55

== ENCOUNTER 2025-01-28 21:13 | Inpatient (IN) ==
--- NOTE | 2025-01-28 22:46 | Emergency Department Note ---
Impression & Plan Acute hepatic encephalopathy Admission ED Provider Note HPI: History obtained from patient and at bedside. The patient is a 69-year-old female with history of cirrhosis, nonalcoholic fatty liver disease, who presents the emergency department with a chief complaint of altered mental status. Patient presents with her at the bedside who serves further history. The patient was just discharged from the hospital 3 days ago for similar symptoms associated with hepatic encephalopathy. Patient's states that the patient has been taking her lactulose at home as prescribed, they were not able to take rifaximin as the cost was too high and required a preapproval. Patient's notes that yesterday the patient seemed to again exhibit signs of confusion, she was slow to respond to his questions and seem to generally be lower energy than usual. He contacted their primary care and was scheduled for an appointment next week but given the worsening confusion he brought the patient to the ER tonight to be assessed. On arrival here to the ED the patient is alert and oriented x 3, she is somewhat slow to respond to questions, she does not have any focal deficits. She otherwise appears to be in no acute distress on my initial assessment. ROS: - Per HPI Differential Diagnosis: Hepatic encephalopathy, sepsis, urinary tract infection, pneumonia, dehydration/acute kidney injury, stroke, intracranial hemorrhage, amongst other potential pathologies. *Outpatient medications and allergy history reviewed. PE: General: Alert, frail-appearing, no acute distress HEENT: Normocephalic, trachea midline Eyes: Extraocular eye movement is intact, no scleral erythema Pulmonary: Clear to auscultation bilaterally, no wheezing Cardio: Regular rate and rhythm GI: Abdomen is soft to palpation : No suprapubic tenderness MSK: No evidence of trauma or malformation of the extremities, no edema Skin: No evidence of rash Neuro: Alert, no focal deficits, equal bilateral boiler tenders supervisor strength, symmetrical facial movements are appreciated Psychiatric: Cooperative INDEPENDENT INTERPRETATIONS: library monitor: (As interpreted by myself): - An order was placed for continuous cardiac monitoring - Patient was noted to be in sinus rhythm with rate of 65 EKG: (As interpreted by myself): Rate: 63 Rhythm: Normal sinus rhythm Intervals: Within normal limits ST changes: No ST elevation Time: 2136 Interventions provided in ED: - Lactulose Medical Decision Making: Patient presented to the emergency department with some confusion and generalized weakness. This was noted by her . He states it was similar to the symptoms that she had when she was admitted last week for hepatic encephalopathy. IV was established and lab work ordered, patient was placed on monitor worker. Patient does not have any focal deficits on arrival, she responds to my commands appropriately. Lab work shows a mild leukopenia at 3.4, hemoglobin stable 10.8, platelet count is reduced but at baseline at 72. CMP does not show any evidence of any critical findings. Ammonia did return elevated at 79, this is lower than her previous admission level however given the patient's symptom onset just over the past day I think this is likely the source of her confusion. Urinalysis shows some evidence of contamination with pyuria, will send for culture. I suspect at this point that the patient symptoms are secondary to her elevated ammonia level. She is alert and oriented x 3 but she does not give a good history, she exhibits only mild confusion. I discussed all the above with the patient's at the bedside, he is in agreement for admission at this time. I discussed patient's presentation with Dr. Valdivia and the patient was placed for admission in stable condition for further care. Consultants/Discussions held with other healthcare providers: -Hospitalist, Dr. Valdivia Disposition discussion held by myself with: -Patient and patient's at the bedside Diagnosis: 1. Hepatic encephalopathy, acute 2. History of Martino cirrhosis Disposition: Admission Harley Ying DO Emergency Medicine Past Med/Surg History Problem List (Updated 01/29/25 @ 04:36 by Harley Ying DO) Acute hepatic encephalopathy (Acute) Acute confusion (Acute) Acute hepatic encephalopathy (Acute) Thrombocytopenia (Acute) Hypomagnesemia (Acute) Acute UTI (urinary tract infection) (Acute) Generalized weakness (Acute) History of diverticulitis Diarrhea Postoperative back pain (Acute) Right leg swelling (Acute) S/P spinal surgery Neurogenic claudication due to lumbar spinal stenosis Cirrhosis Portal hypertension NAFLD (nonalcoholic fatty liver disease) (Acute) Medical History History of diverticulitis no hospitalizations - no current issues Systolic murmur Hx of iron deficiency anemia has had 2 iron infusions in the past Hx of portal hypertension NAFLD (nonalcoholic fatty liver disease) as per patient following with [facility] "liver doctor" - did see [facility] 05/2024 Cirrhosis as per patient following with [facility] "liver doctor" - did see [facility] 05/2024 Arthritis Hx of deep venous thrombosis (~2019) left foot s/p hip surgery (was on blood thinner for 6 months) Heart murmur 01/2023; f/u dr. miranda, cardio "nothing of concern" as per patient Surgical History History of lumbar surgery (10/2023) Hardware present History of open reduction and internal fixation (ORIF) procedure right femur Hx of tooth extraction all top teeth-wears top denture History of bladder surgery sling History of hip surgery left side>repaired after fx History of cholecystectomy History of appendectomy H/O abdominal surgery removed sac formed in abdominal region with cauterization *long time ago [place] teeth removed History of cataract surgery Bilateral Nausea and vomiting after administration of anesthetic agent denies needing scop patch H/O colonoscopy History of esophagogastroduodenoscopy (EGD) H/O gastric bypass 2014 *lost 135lbs Family History Mother Dementia Son Crohn's disease Other Heart disease No family history of adverse response to anesthesia Denies family history of Colorectal cancer Ulcerative colitis Social History Smoking Status: Never smoker Second Hand Exposure: No; Do You Dip or Chew Tobacco: No; Tobacco Cessation Education Requested by Patient: No Hx Alcohol Use: No Hx Substance Use: No Preferred Language: Kazakh Communication Ability: Effective Director Food Safety Required: No Beliefs That Will Affect Care: None Current Living Situation: Spouse Other Information That Helps Us Care for You: No Feels Safe at Home: Yes Safety Concerns: Feels Safe At This Time Assistive Devices: Denture - Upper Allergies Allergies Allergy/AdvReac Type Severity Reaction Status Date / Time No Known Allergies Allergy Verified 01/28/25 23:29 Home Meds Home Medications Medication Instructions Recorded Confirmed aspirin 81 mg tablet,delayed 81 mg PO QAM 11/17/23 01/28/25 release furosemide 20 mg tablet (Lasix) 40 mg PO QAM 08/18/24 01/28/25 cholecalciferol (vitamin D3) 125 125 mcg PO QAM 12/31/24 01/28/25 mcg (5,000 unit) capsule furosemide 20 mg tablet 20 mg PO .Q AFTERNOON 12/31/24 01/28/25 potassium chloride 10 mEq 10 meq PO QAM 12/31/24 01/28/25 capsule,extended release vitamin B12 2,500 mcg-folic acid 1 tab PO QAM 12/31/24 01/28/25 400 mcg disintegrating tablet zinc gluconate 50 mg tablet 50 mg PO QAM 12/31/24 01/28/25 solifenacin 5 mg tablet 5 mg PO DAILY 01/22/25 01/28/25 Previous Rx's Medication Instructions Recorded carvedilol 3.125 mg tablet 3.125 mg PO BID #30 tabs 01/01/25 lactulose 10 gram/15 mL oral 30 g (45 mL) PO TID #946 mL 01/25/25 solution rifaximin 550 mg tablet (Xifaxan) 550 mg PO BID #60 tabs 01/25/25 spironolactone 25 mg tablet 50 mg (2 x 25 mg) PO QAM #0 tabs 01/25/25 Results & Data (ED) Vital Signs Vital Signs - 24 hr 01/28/25 21:24 01/28/25 21:35 01/28/25 21:35 Temperature 36.8 C Temperature Source Temporal Artery Scan Pulse Rate 61 Pulse Rate [Right Finger] 62 Pulse Rhythm Regular Pulse Rhythm [Right Finger] Regular Pulse Strength Normal Respiratory Rate 18 16 Respiratory Effort / Characteristics Non-Labored Spontaneous Non-Labored Respiratory Depth Normal Normal Respiratory Pattern Regular Blood Pressure 122/69 Blood Pressure [Right Arm] 126/82 Blood Pressure Mean 86 Blood Pressure Mean [Right Arm] 96 Blood Pressure Position Sitting Pulse Oximetry 98 98 97 Oxygen Delivery Method Room Air Room Air Room Air Sepsis Recent Fever Within 48 Hours No Sepsis New/Unexplained Change in Mental Status N/A Sepsis Action Taken by Nursing No Action Required 01/28/25 21:41 01/28/25 22:40 01/28/25 23:00 Temperature Temperature Source Pulse Rate 63 63 Pulse Rate [Right Finger] 63 Pulse Rhythm Regular Pulse Rhythm [Right Finger] Regular Pulse Strength Respiratory Rate 16 Respiratory Effort / Characteristics Respiratory Depth Normal Respiratory Pattern Blood Pressure Blood Pressure [Right Arm] 126/82 Blood Pressure Mean Blood Pressure Mean [Right Arm] 96 Blood Pressure Position Pulse Oximetry 97 94 Oxygen Delivery Method Room Air Room Air Sepsis Recent Fever Within 48 Hours Sepsis New/Unexplained Change in Mental Status Sepsis Action Taken by Nursing 01/29/25 00:11 Temperature Temperature Source Pulse Rate Pulse Rate [Right Finger] 61 Pulse Rhythm Pulse Rhythm [Right Finger] Regular Pulse Strength Respiratory Rate 16 Respiratory Effort / Characteristics Respiratory Depth Normal Respiratory Pattern Blood Pressure Blood Pressure [Right Arm] 111/62 Blood Pressure Mean Blood Pressure Mean [Right Arm] 78 Blood Pressure Position Pulse Oximetry 98 Oxygen Delivery Method Room Air Sepsis Recent Fever Within 48 Hours Sepsis New/Unexplained Change in Mental Status Sepsis Action Taken by Nursing Laboratory Data 01/28/25 22:05 01/28/25 22:05 Lab Results 01/28/25 01/28/25 01/29/25 Range/Units 22:05 23:06 00:07 WBC 3.44 L (4.8-10.8) K/ul RBC 3.31 L (4.20-5.40) M/uL Hgb 10.8 L (12.0-16.0) g/dl Hct 33.5 L (37.0-47.0) % MCV 101.2 H (80.0-100.0) fL MCH 32.6 (25.0-34.0) pg MCHC 32.2 (32.0-36.0) g/dL RDW Std Deviation 59.9 H (36.4-46.3) fL RDW Coeff of Rene 16.2 H (11.5-14.5) % Plt Count 72 L (130-400) K/uL MPV 11.2 (9.4-12.4) fL Immature Gran % (Auto) 0.3 % Neut % (Auto) 54.4 % Lymph % (Auto) 30.8 % Amelia % (Auto) 11.0 % Eos % (Auto) 2.9 % Baso % (Auto) 0.6 % Neut # (Auto) 1.87 (1.40-6.50) K/uL Lymph # (Auto) 1.06 L (1.20-3.40) K/uL Amelia # (Auto) 0.38 (0.11-0.59) K/uL Eos # (Auto) 0.10 (0.00-0.50) K/uL Baso # (Auto) 0.02 (0.00-0.20) K/uL Immature Gran # (Auto) 0.01 (0.01-0.20) K/uL PT 14.5 H (9.0-12.0) Seconds INR 1.4 H (0.9-1.1) Sodium 144 (136-145) mmol/L Potassium 4.1 (3.5-5.1) mmol/L Chloride 110 H (98-107) mmol/L Carbon Dioxide 30 (21-32) mmol/L Anion Gap 4 (3-11) BUN 18 (6-23) mg/dl Creatinine 0.78 (0.6-1.2) mg/dl Est Cr Clr Drug Dosing Not Reportable eGFR 81.15 BUN/Creatinine Ratio 23.1 H (10-20) Glucose 99 (70-99(Fasting)) mg/dl Calcium 8.6 (8.6-10.3) mg/dl Total Bilirubin 3.9 H (0.2-1.0) mg/dl AST 59 H (13-39) U/L ALT 25 (7-52) U/L Alkaline Phosphatase 153 H (34-104) U/L Ammonia 79.0 H (18-72) umol/L Total Protein 6.1 (6.0-8.3) gm/dl Albumin 2.7 L (3.4-5.0) gm/dl Globulin 3.4 (2.5-4.0) gm/dl Albumin/Globulin Ratio 0.8 L (0.9-2) Lipase 25 (11-82) U/L Urine Color Dark Yellow Urine Appearance Cloudy A (Clear) Urine pH 5.5 (4.5-7.5) Ur Specific [place] 1.021 (1.000-1.030) Urine Protein Negative (Negative) Urine Glucose (UA) Negative (Negative) Urine Ketones Trace H (Negative) Urine Blood Negative (Negative) Urine Nitrite Negative (Negative) Urine Bilirubin 1+ H (Negative) Urine Urobilinogen Negative (Negative) Ur Leukocyte Esterase 2+ H (Negative) Urine WBC (Auto) 21-50 H (0-5) /hpf Urine RBC (Auto) 3-5 H (0-2) /hpf U Hyaline Cast (Auto) 3-5 H (0-2) /lpf U Epithel Cells (Auto) 11-20 H (0-2) /hpf Urine Bacteria (Auto) 1+ H (None Seen) Calcium Oxalate Crystal Present A (None Prsent) Urine Mucus Present A (None Prsent) Urine Comment Administered Medications Lactated Ringer's (Lr) 1,000 mls @ 80 mls/hr IV .[id number] SAM Stop: 01/29/25 13:29 Last Admin: 01/29/25 02:28 Dose: 80 mls/hr Documented By: erich Discontinued Medications Fluconazole (Diflucan) 200 mg in 100 mls @ 100 mls/hr IV ONE ONE Stop: 01/29/25 01:55 Last Infusion: 01/29/25 03:30 Dose: Infused Documented By: erich Admin: 01/29/25 02:30 Dose: 100 mls/hr Documented By: erich Ioversol (Optiray 320 100ml) 95 ml IV ONCE ONE Stop: 01/29/25 01:42 Last Admin: 01/29/25 01:41 Dose: 95 ml Documented By: SARA Lactulose (Lactulose Syrup 20 Gm/30 Ml Udc) 30 gm PO NOW STA Stop: 01/28/25 23:42 Last Admin: 01/28/25 23:51 Dose: 30 gm Documented By: AJAYW Imaging Data Radiologist's Impression: Abdomen/Pelvis CT 01/29/25 00:48 EXAM: CT abdomen pelvis wo/w con CLINICAL HISTORY: confusion, infection workup, liver dz TECHNIQUE: Multiple contiguous axial images were obtained from the level of the diaphragm to the pubic symphysis. This study was acquired after the IV administration of iodinated contrast material, given the patient's indications for the examination. If IV contrast material had not been administered, the likelihood of detecting abnormalities relevant to the patient's condition would have been substantially decreased. Coronal and sagittal reformatted images were generated and reviewed to improve anatomic localization and optimize lesion detection. CT scan was performed according to ALARA (as low as reasonably achievable). COMPARISON: CT, 01/22/2025 18:28:00 DATAWAREHOUSE DEVELOPER FINDINGS: The visualized lung bases are clear. ABDOMEN/PELVIS: The liver shows heterogeneous attenuation with a diffuse nodular outline and fissural widening. No focal liver lesions are seen. There is no intrahepatic or extrahepatic biliary ductal dilatation. The hepatic vasculature is patent. Recanalization of the paraumbilical vein is present. Multiple venous collaterals are seen in periesophageal, perigastric, peripancreatic, and anterior abdominal wall locations. The gallbladder is surgically removed. The spleen is enlarged in size, measuring 16.3 cm. The pancreas and adrenal glands are unremarkable. The kidneys are normal in size and attenuation. There is no hydronephrosis or perinephric fat stranding. No renal calculi or renal masses are identified. The ureters are normal in caliber and no ureteral calculi are seen. The bladder is normal in contour. Post-hysterectomy status. A lobulated cystic lesion is seen in the right adnexa measuring 7 x 3.1 cm with calcification/surgical clips. No evidence of focal or diffuse bowel wall thickening or evidence of bowel obstruction is seen. Multiple small diverticula measuring 2-4 mm are seen in the sigmoid colon. No inflammatory changes are noted. The appendix is not visualized. No adenopathy or fluid collections are seen. The aorta is normal in caliber. Diffuse atherosclerotic wall calcification of the abdominal aorta is noted. Significant degenerative changes are present in the visualized spine. No aggressive appearing osseous lesions are identified. Transpedicular fixation screws are present at the L3, L4, and L5 vertebral levels with an L4/L5 prosthetic disc. IMPRESSION: 1. Liver shows features of chronic liver parenchymal disease.Suggest lab correlation 2. Multiple venous collaterals are seen in periesophageal, perigastric, peripancreatic, and anterior abdominal wall locations - maciej-systemic collaterals. 3. Moderate splenomegaly. 4. Uncomplicated sigmoid colon diverticulosis. 5. Lobulated cystic lesion seen in the right adnexa with calcification/surgical clips - suggested ultrasound correlation. 6. No interval changes. Electronically signed by Richard Yuan 01-29-2025 03:06 AM Chest X-Ray 01/29/25 00:48 EXAM: XR chest 1V portable CLINICAL HISTORY: Admission, infection workup, confusion. TECHNIQUE: An X-ray image of the chest was obtained in the AP projection. COMPARISON: CR 01/22/2025 FINDINGS: Pulmonary Parenchyma: The lungs are clear bilaterally. There is no evidence of consolidation, collapse, or focal opacities. No pulmonary nodules are identified. There is no evidence of pleural effusion or pleural thickening. Heart and Mediastinum: The heart size and shape are normal. There is no mediastinal widening or mass. No hilar or mediastinal lymphadenopathy is present. There is an unfolded aorta with a prominent knuckle. Bony Thorax: The bony thorax appears intact without fractures or deformities. Soft Tissues: The soft tissues overlying the chest wall are unremarkable. IMPRESSION: 1. No acute cardiopulmonary abnormalities are identified. 2. No interval changes. Electronically signed by Nathaniel Ross 01-29-2025 02:[address] 01/29/25 00:48 EXAM: CT head/brain wo con CLINICAL HISTORY: confusion TECHNIQUE: Multiple axial images were obtained from the skull base to the vertex without contrast. The CT scan was performed according to ALARA (as low as reasonably achievable). COMPARISON: CT, 01/22/2025 18:28:00 DATAWAREHOUSE DEVELOPER FINDINGS: There is cerebral atrophy. There are a few chronic lacunar infarcts in the left basal ganglia. No evidence of space-occupying lesion, hemorrhage, edema, mass effect, midline shift, extra-axial collection, or hydrocephalus is noted. Basal cisterns are symmetric and normal in size and configuration. The webster-white matter differentiation is preserved. The visualized paranasal sinuses and mastoid air cells are well aerated. The orbital contents are within normal limits. The bony structures are intact. IMPRESSION: 1. No evidence of acute intracranial abnormality is demonstrated. 2. Age-related cerebral atrophy. 3. A few chronic lacunar infarcts in the left basal ganglia. 4. No interval changes. Electronically signed by Richard Yuan 01-29-2025 02:57 AM Discharge Plan Visit Data Chief Complaint: Weakness Stated Complaint: CONFUSION, SHAKING, WEAKNESS, HERE SATURDAY ED Provider: Harley Ying Discharge Problem: Acute hepatic encephalopathy Patient Disposition: Admitted As Inpatient Condition: Fair Discharge Instructions Interventions: ED Discharge Assessment Last Done: 01/29/25 01:56
[2025-01-28 23:05] LABS: Hematocrit (blood only) 33.5 % (37.0-47.0); Hemoglobin 10.8 g/dl (12.0-16.0); Immature Granulocytes # (auto) 0.01 K/uL (0.01-0.20); Immature Granulocytes % (auto) 0.3 %; Mean Corpuscular Hemoglobin 32.6 pg (25.0-34.0); Mean Corpuscular Volume 101.2 fL (80.0-100.0); Platelet Count 72 K/uL (130-400); RDW Standard Deviation 59.9 fL (36.4-46.3); Red Blood Count 3.31 M/uL (4.20-5.40); White Blood Count 3.44 K/ul (4.8-10.8)
[2025-01-28 23:21] LABS: Alanine Aminotransferase 25 U/L (7-52); Albumin Globulin Ratio 0.8 (0.9-2); Albumin Level 2.7 gm/dl (3.4-5.0); Alkaline Phosphatase 153 U/L (34-104); Anion Gap 4 (3-11); Bilirubin,Total 3.9 mg/dl (0.2-1.0); Blood Urea Nitrogen 18 mg/dl (6-23); Calcium 8.6 mg/dl (8.6-10.3); Carbon Dioxide 30 mmol/L (21-32); Chloride 110 mmol/L (98-107); Globulin 3.4 gm/dl (2.5-4.0); Glucose 99 mg/dl (70-99(Fasting)); Lipase 25 U/L (11-82); Potassium 4.1 mmol/L (3.5-5.1); Sodium 144 mmol/L (136-145); Total Protein 6.1 gm/dl (6.0-8.3)
[2025-01-28 23:32] LABS: INR 1.4 (0.9-1.1); Prothrombin Time 14.5 Seconds (9.0-12.0)
[2025-01-28] MEDS: LACTULOSE SYRUP 20 GM/30 ML UDC PO STA (23:51)
--- NOTE | 2025-01-29 00:43 | History & Physical Report ---
Date of Service January 29, 2025 Assessment & Plan (1) Acute confusion: (2) Acute hepatic encephalopathy: (3) Acute UTI (urinary tract infection): (4) Generalized weakness: Plan Patient is a 69-year-old female with past medical history of NAFLD/cirrhosis, thrombocytopenia, venous insufficiency, DVT, IRVING, portal hypertension. Patient has had numerous admissions over the past few months due to confusion and was recently admitted from 01/23 to 01/25 for hepatic encephalopathy. she was feeling well at time of discharge however over the past 2 days has had some acute confusion and weakness. She is being admitted for acute encephalopathy with etiology to be determined at time of admission. #acute encephalopathy/candiduria infectious versus hepatic. Recently admitted for hepatic encephalopathy with ammonia 149 (01/22), currently 79 (01/28). Appea rs to have positive urine cultures for Simran glabrata from 01/22. Nonseptic at time of admission. 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 T. bili improved, INR baseline, LFTs at baseline. - continue lactulose, Lasix, spironolactone (increased from 25 mg to 50mg daily during recent admission), carvedilol - trend CMP and ammonia #Thrombocytopenia - plt count at baseline. - trend CBC with VTE ppx below #chronic venous insufficiency - at baseline. - TEDs, SCDs, promote leg elevation, continue diuretics. VTE ppx: heparin every 12 hours, teds, SCDs note chronic thrombocytopenia (at baseline) however history of DVT Dispo: med surg Admission and Anticipated Discharge Date Admission Date: 01/29/25 History of Present Illness Chief Complaint: weakness Primary Care Provider: Marissa Alvarado PA-C Patient is a 69-year-old female with past medical history of NAFLD/cirrhosis, thrombocytopenia, venous insufficiency, DVT, IRVING, portal hypertension. Patient has had numerous admissions over the past few months due to confusion and was recently admitted from 01/23 to 01/25 for hepatic encephalopathy. she was feeling well at time of discharge however over the past 2 days has had some acute confusion and weakness. She is being admitted for acute encephalopathy with etiology to be determined at time of admission. Patient seen at bedside with her present. She is alert and oriented x 4 and able to provide a history however stated she is mildly confused. Her confusion has improved after an additional (fourth dose (of lactulose 30 mg p.o. for the day. She went home on Saturday and started to develop some confusion Saturday evening. She had an increase in her lactulose from 30 g every morning and 20 g every afternoon to 30 g 3 times daily during recent admission which she has been taking as scheduled. She was prescribed rifaximin 550 mg twice daily however has not been able to pick this up yet as she needs "preapproval" with her insurance. She does endorse mild nausea and has had diarrhea with the lactulose. She denies any dizziness, lightheadedness, chest pain, shortness of breath, cough, congestion, rhinorrhea, abdominal pain, dysuria, hematuria, difficulty urinating. Her chronic lower extremity edema is at its baseline and she has been wearing her compression stockings at home. She got all of her home medications yesterday. She wishes to be full code. Allergies Allergy/AdvReac Type Severity Reaction Status Date / Time No Known Allergies Allergy Verified 01/28/25 23:29 Home Medications Medication Instructions Recorded Confirmed Type aspirin 81 mg tablet,delayed 81 mg PO QAM 11/17/23 01/28/25 History release furosemide 20 mg tablet (Lasix) 40 mg PO QAM 08/18/24 01/28/25 History cholecalciferol (vitamin D3) 125 125 mcg PO QAM 12/31/24 01/28/25 History mcg (5,000 unit) capsule furosemide 20 mg tablet 20 mg PO .Q AFTERNOON 12/31/24 01/28/25 History potassium chloride 10 mEq 10 meq PO QAM 12/31/24 01/28/25 History capsule,extended release vitamin B12 2,500 mcg-folic acid 1 tab PO QAM 12/31/24 01/28/25 History 400 mcg disintegrating tablet zinc gluconate 50 mg tablet 50 mg PO QAM 12/31/24 01/28/25 History carvedilol 3.125 mg tablet 3.125 mg PO BID #30 tabs 01/01/25 01/28/25 Rx solifenacin 5 mg tablet 5 mg PO DAILY 01/22/25 01/28/25 History lactulose 10 gram/15 mL oral 30 g (45 mL) PO TID #946 mL 01/25/25 01/28/25 Rx solution rifaximin 550 mg tablet (Xifaxan) 550 mg PO BID #60 tabs 01/25/25 01/28/25 Rx spironolactone 25 mg tablet 50 mg (2 x 25 mg) PO QAM #0 tabs 01/25/25 01/28/25 Rx Past Med/Surg History Problem List (Updated 01/29/25 @ 04:36 by Harley Ying DO) Acute hepatic encephalopathy (Acute) Acute confusion (Acute) Acute hepatic encephalopathy (Acute) Thrombocytopenia (Acute) Hypomagnesemia (Acute) Acute UTI (urinary tract infection) (Acute) Generalized weakness (Acute) History of diverticulitis Diarrhea Postoperative back pain (Acute) Right leg swelling (Acute) S/P spinal surgery Neurogenic claudication due to lumbar spinal stenosis Cirrhosis Portal hypertension NAFLD (nonalcoholic fatty liver disease) (Acute) Medical History History of diverticulitis no hospitalizations - no current issues Systolic murmur Hx of iron deficiency anemia has had 2 iron infusions in the past Hx of portal hypertension NAFLD (nonalcoholic fatty liver disease) as per patient following with Demi RUBY "liver doctor" - did see [facility] 05/2024 Cirrhosis as per patient following with Demi RUBY "liver doctor" - did see [facility] 05/2024 Arthritis Hx of deep venous thrombosis (~2019) left foot s/p hip surgery (was on blood thinner for 6 months) Heart murmur 01/2023; f/u dr. miranda, cardio "nothing of concern" as per patient Surgical History History of lumbar surgery (10/2023) Hardware present History of open reduction and internal fixation (ORIF) procedure right femur Hx of tooth extraction all top teeth-wears top denture History of bladder surgery sling History of hip surgery left side>repaired after fx History of cholecystectomy History of appendectomy H/O abdominal surgery removed sac formed in abdominal region with cauterization *long time ago [place] teeth removed History of cataract surgery Bilateral Nausea and vomiting after administration of anesthetic agent denies needing scop patch H/O colonoscopy History of esophagogastroduodenoscopy (EGD) H/O gastric bypass 2014 *lost 135lbs Family History Mother Dementia Son Crohn's disease Other Heart disease No family history of adverse response to anesthesia Denies family history of Colorectal cancer Ulcerative colitis Social History Smoking Status: Never smoker Second Hand Exposure: No; Do You Dip or Chew Tobacco: No; Tobacco Cessation Education Requested by Patient: No Hx Alcohol Use: No Hx Substance Use: No Preferred Language: Thai Communication Ability: Effective Geriatrics Physician Required: No Beliefs That Will Affect Care: None Current Living Situation: Spouse Other Information That Helps Us Care for You: No Feels Safe at Home: Yes Safety Concerns: Feels Safe At This Time Assistive Devices: Cane Review of Systems Review of Systems: see HPI Physical Exam Physical Exam: The patient is awake, alert and oriented 3, well developed and well nourished, normocephalic and atraumatic, in no acute distress. Non-toxic appearing. HEENT- EOMI, mucous membranes moist. Hearing grossly intact. Heart-normal S1 and S2. No murmurs, rubs or gallops. Lungs-clear bilaterally, no respiratory distress, no accessory muscle use. Abdomen-normal bowel sounds and soft. No ascites noted. Non-tender. Extremities- no clubbing, cyanosis. +2 pitting edema BL LE. Rheumatologic-normal range of motion. Psychiatric-normal affect. Results & Data Results & Data Vital Signs (Past 12 Hours) Vital Signs Temp Pulse Pulse Resp BP BP Pulse Ox 01/29/25 00:11 61 16 111/62 98 01/28/25 23:00 63 16 126/82 94 01/28/25 22:40 63 97 01/28/25 21:41 63 01/28/25 21:35 62 16 126/82 97 01/28/25 21:35 98 01/28/25 21:24 36.8 C 61 18 122/69 98 O2 Del Method 01/29/25 00:11 Room Air 01/28/25 23:00 Room Air 01/28/25 22:40 Room Air 01/28/25 21:41 01/28/25 21:35 Room Air 01/28/25 21:35 Room Air 01/28/25 21:24 Room Air Laboratory Results Reviewed CBC, CMP, PT/INR, ammonia, lipase Order UA Diagnostic Findings ordered CXR, AP CT, head CT Medications Administered EDlactulose 30G p.o. Code Status & VTE Plan Code Status full code VTE Prophylaxis Plan VTE Prophylaxis will be ordered: Yes Supervising Physician Co-Signing Physician Notes Attending addendum: I have physically seen this patient, have supervised the TATO's activities, and agree with the H&P unless as otherwise noted. Assessment and Plan: The patient is a 69-year-old female with a past medical history including NAFLD/cirrhosis, thrombocytopenia, chronic venous insufficiency, DVT, IRVING, and portal hypertension. Most recent hospitalizations from 12/31-01/01/2025, then more recently 01/23-01/25/2025 for hepatic encephalopathy, with an ammonia level of 149.0. During that admission, her lactulose dose was increased to 30 mg p.o. 3 times daily, and had the addition of rifaximin. She reports that she was feeling well at the time of discharge, however, over the past 2 days she has had a return of similar symptoms of acute confusion and weakness. Her ammonia level this time is only 79.0, and may still have some acute encephalopathy, however, need to consider other sources such as urinary tract infection/peritonitis or other. Acute encephalopathy/candiduria- Hepatic encephalopathy was noted during admission from 01/23-01/25/2025 with an ammonia level of 149.0. During that admission, patient had lactulose increased 30 mg p.o. 3 times daily, and had the addition of rifaximin. Unfortunately, patient did not picking supervisor the rifaximin dosing, because of the expense. Simran glabrata urinary tract infection noted on urine from 01/22, which may be the cause of her encephalopathy was interval Placed on fluconazole 200 mg IV every 24 hours. Next option would be to consider Amphotericin, which we will try to avoid due to side effects. CT scan of head on 01/22 was negative, but will be repeated CT scan of abdomen and pelvis on 01/22 showed liver cirrhosis, portal hypertension. Do not see the utility in starting rifaximin in the hospital this time, as patient will not be able to afford it on discharge LR at 80 mL/h x 1 L Follow serial CBC with differential, chemistry profile and ammonia levels NAFLD/cirrhosis/portal hypertension/varices- Laboratories are improved from previous recent admission Continue lactulose, Lasix, spironolactone and carvedilol Thrombocytopenia- Platelet count at baseline Follow serially Remaining orders and notations as noted PG Care Time/CCT Total # of Minutes Spent Total Time Spent with Patient: Total time spent is greater than 50% in coordination of care (as documented) at patient's floor/unit and/or counseling patient: Coding Level of Care Code 72693 INT INP/OBS CARE 3/75MIN Diagnoses Acute confusion R41.0 Acute hepatic encephalopathy K76.82 Acute UTI (urinary tract infection) N39.0 Generalized weakness R53.1
[2025-01-29 00:52] LABS: Appearance Urine Cloudy (Clear); Bacteria Urine Automated 1+ (None Seen); Glucose Urine UA Negative (Negative); WBC Urine Automated 21-50 /hpf (0-5)
[2025-01-29] MEDS: OPTIRAY 320 100ml IV ONE (01:41)
--- NOTE | 2025-01-29 02:11 | XRay Report ---
EXAM: XR chest 1V portable CLINICAL HISTORY: Admission, infection workup, confusion. TECHNIQUE: An X-ray image of the chest was obtained in the AP projection. COMPARISON: CR 01/22/2025 FINDINGS: Pulmonary Parenchyma: The lungs are clear bilaterally. There is no evidence of consolidation, collapse, or focal opacities. No pulmonary nodules are identified. There is no evidence of pleural effusion or pleural thickening. Heart and Mediastinum: The heart size and shape are normal. There is no mediastinal widening or mass. No hilar or mediastinal lymphadenopathy is present. There is an unfolded aorta with a prominent knuckle. Bony Thorax: The bony thorax appears intact without fractures or deformities. Soft Tissues: The soft tissues overlying the chest wall are unremarkable. IMPRESSION: 1. No acute cardiopulmonary abnormalities are identified. 2. No interval changes. Electronically signed by Nathaniel Ross 01-29-2025 02:10 AM
[2025-01-29] MEDS ORDERED: ONDANSETRON INJ 2 MG/ML 2 ML VIAL IV PRN (02:26)
[2025-01-29] MEDS ORDERED: KETOROLAC TROMETHAMINE 15 MG/ML VIAL IV PRN (02:26)
[2025-01-29] MEDS ORDERED: MELATONIN 3 MG TAB PO PRN (02:26)
[2025-01-29] MEDS: LACTATED RINGER'S 1,000 ML IV SCH (02:28)
[2025-01-29] MEDS: FLUCONAZOLE 200 MG/100 ML BAG IV ONE (02:30)
--- NOTE | 2025-01-29 02:58 | CT Scan Report ---
EXAM: CT head/brain wo con CLINICAL HISTORY: confusion TECHNIQUE: Multiple axial images were obtained from the skull base to the vertex without contrast. The CT scan was performed according to ALARA (as low as reasonably achievable). COMPARISON: CT, 01/22/2025 18:28:00 [employer]PET[employer] MOLDER FINDINGS: There is cerebral atrophy. There are a few chronic lacunar infarcts in the left basal ganglia. No evidence of space-occupying lesion, hemorrhage, edema, mass effect, midline shift, extra-axial collection, or hydrocephalus is noted. Basal cisterns are symmetric and normal in size and configuration. The webster-white matter differentiation is preserved. The visualized paranasal sinuses and mastoid air cells are well aerated. The orbital contents are within normal limits. The bony structures are intact. IMPRESSION: 1. No evidence of acute intracranial abnormality is demonstrated. 2. Age-related cerebral atrophy. 3. A few chronic lacunar infarcts in the left basal ganglia. 4. No interval changes. Electronically signed by Richard Yuan 01-29-2025 02:57 AM
--- NOTE | 2025-01-29 03:06 | CT Scan Report ---
EXAM: CT abdomen pelvis wo/w con CLINICAL HISTORY: confusion, infection workup, liver dz TECHNIQUE: Multiple contiguous axial images were obtained from the level of the diaphragm to the pubic symphysis. This study was acquired after the IV administration of iodinated contrast material, given the patient's indications for the examination. If IV contrast material had not been administered, the likelihood of detecting abnormalities relevant to the patient's condition would have been substantially decreased. Coronal and sagittal reformatted images were generated and reviewed to improve anatomic localization and optimize lesion detection. CT scan was performed according to ALARA (as low as reasonably achievable). COMPARISON: CT, 01/22/2025 18:28:00 LAY BROTHER FINDINGS: The visualized lung bases are clear. ABDOMEN/PELVIS: The liver shows heterogeneous attenuation with a diffuse nodular outline and fissural widening. No focal liver lesions are seen. There is no intrahepatic or extrahepatic biliary ductal dilatation. The hepatic vasculature is patent. Recanalization of the paraumbilical vein is present. Multiple venous collaterals are seen in periesophageal, perigastric, peripancreatic, and anterior abdominal wall locations. The gallbladder is surgically removed. The spleen is enlarged in size, measuring 16.3 cm. The pancreas and adrenal glands are unremarkable. The kidneys are normal in size and attenuation. There is no hydronephrosis or perinephric fat stranding. No renal calculi or renal masses are identified. The ureters are normal in caliber and no ureteral calculi are seen. The bladder is normal in contour. Post-hysterectomy status. A lobulated cystic lesion is seen in the right adnexa measuring 7 x 3.1 cm with calcification/surgical clips. No evidence of focal or diffuse bowel wall thickening or evidence of bowel obstruction is seen. Multiple small diverticula measuring 2-4 mm are seen in the sigmoid colon. No inflammatory changes are noted. The appendix is not visualized. No adenopathy or fluid collections are seen. The aorta is normal in caliber. Diffuse atherosclerotic wall calcification of the abdominal aorta is noted. Significant degenerative changes are present in the visualized spine. No aggressive appearing osseous lesions are identified. Transpedicular fixation screws are present at the L3, L4, and L5 vertebral levels with an L4/L5 prosthetic disc. IMPRESSION: 1. Liver shows features of chronic liver parenchymal disease.Suggest lab correlation 2. Multiple venous collaterals are seen in periesophageal, perigastric, peripancreatic, and anterior abdominal wall locations - maciej-systemic collaterals. 3. Moderate splenomegaly. 4. Uncomplicated sigmoid colon diverticulosis. 5. Lobulated cystic lesion seen in the right adnexa with calcification/surgical clips - suggested ultrasound correlation. 6. No interval changes. Electronically signed by Richard Yuan 01-29-2025 03:06 AM
[2025-01-29 07:42] LABS: Hematocrit (blood only) 31.5 % (37.0-47.0); Hemoglobin 10.1 g/dl (12.0-16.0); Immature Granulocytes # (auto) 0.01 K/uL (0.01-0.20); Immature Granulocytes % (auto) 0.4 %; Mean Corpuscular Hemoglobin 33.0 pg (25.0-34.0); Mean Corpuscular Volume 102.9 fL (80.0-100.0); Platelet Count 70 K/uL (130-400); RDW Standard Deviation 60.3 fL (36.4-46.3); Red Blood Count 3.06 M/uL (4.20-5.40); White Blood Count 2.77 K/ul (4.8-10.8)
[2025-01-29 07:57] LABS: Alanine Aminotransferase 22.0 U/L (7-52); Albumin Globulin Ratio 0.8 (0.9-2); Albumin Level 2.6 gm/dl (3.4-5.0); Alkaline Phosphatase 135.0 U/L (34-104); Anion Gap 3.0 (3-11); Bilirubin,Total 3.8 mg/dl (0.2-1.0); Blood Urea Nitrogen 19.0 mg/dl (6-23); Calcium 8.3 mg/dl (8.6-10.3); Carbon Dioxide 30.0 mmol/L (21-32); Chloride 110.0 mmol/L (98-107); Creatinine Clr Calc Pharmacy 104.1 ml/min; Globulin 3.1 gm/dl (2.5-4.0); Glucose 92.0 mg/dl (70-99(Fasting)); Potassium 3.6 mmol/L (3.5-5.1); Sodium 143.0 mmol/L (136-145); Total Protein 5.7 gm/dl (6.0-8.3)
[2025-01-29 07:58] VITALS: RESP 16
[2025-01-29] MEDS: LACTULOSE SYRUP 20 GM/30 ML UDC PO SCH ×2 (08:56→17:48)
[2025-01-29] MEDS: SPIRONOLACTONE 25 MG TAB PO SCH (08:56)
[2025-01-29] MEDS: ASPIRIN 81 MG ECTAB PO SCH (08:56)
[2025-01-29] MEDS: FUROSEMIDE 40 MG TAB PO SCH (08:56)
[2025-01-29] MEDS: HEPARIN SOD 5,000 UNIT/0.5 ML VIAL SQ SCH (08:57)
[2025-01-29] MEDS: POTASSIUM CHLORIDE 10 MEQ TABCR PO SCH (08:57)
[2025-01-29] MEDS: OXYBUTYNIN CHLORIDE XL 5 MG TABCR PO SCH (08:57)
--- NOTE | 2025-01-29 13:26 | Electrocardiogram Report ---
Test Reason : Blood Pressure : */* mmHG Vent. Rate : 63 BPM Atrial Rate : 64 BPM P-R Int : 186 ms QRS Dur : 96 ms QT Int : 468 ms P-R-T Axes : 58 -9 64 degrees QTcB Int : 478 ms Poor data quality, interpretation may be adversely affected Normal sinus rhythm Nonspecific ST abnormality Abnormal ECG When compared with ECG of 22-Jan-2025 17:50, No significant change was found Confirmed by Filemon Navarro ([id number]) on 01/29/2025 1:26:00 PM Referred By: REFERRED SELF Confirmed By: Filemon Navarro
[2025-01-29] MEDS: FUROSEMIDE 20 MG TAB PO SCH (14:17)
--- NOTE | 2025-01-29 16:55 | Hospitalist Progress Note ---
Date of Service January 29, 2025 Assessment & Plan (1) Acute confusion: (2) Acute hepatic encephalopathy: (3) Acute UTI (urinary tract infection): (4) Generalized weakness: Plan Patient is a 69-year-old female with past medical history of NAFLD/cirrhosis, thrombocytopenia, venous insufficiency, DVT, IRVING, portal hypertension. Patient has had numerous admissions over the past few months due to confusion and was recently admitted from 01/23 to 01/25 for hepatic encephalopathy. she was feeling well at time of discharge however over the past 2 days has had some acute confusion and weakness. She is being admitted for acute encephalopathy with etiology to be determined at time of admission. #acute encephalopathy/candiduria Infectious versus hepatic. Recently admitted with a elevated ammonia and discharged following clinical improvement On admission ammonia 79.0, downtrending at 62. She has had significant improvement overnight with lactulose She denies infectious symptoms. She is being treated for Simran UTI with fluconazole however this has grown out Simran glabrata and while sensitivities are pending this has a high rate of resistance to fluconazole. This was in relatively low counts and her UA had epithelial cell contamination unfortunately alternatives are with significant risk of toxicity/side effects, and it is unclear if this is a true cystitis. Her encephalopathic symptoms have greatly improved with treatment of hepatic encephalopathy. She has no vaginal itching/burning. No dysuria. Given this we will continue to monitor for now and defer antifungal treatment. Did discuss this with patient and her who are in agreement Trend CBC, CMP Lactulose continue Unfortunately even following prior Auth rifaximin is ~$1k/month. Did discuss maximizing her increasing lactulose and discussed with her , they will continue to look for additional pharmacy/coverage options however for now they would prefer to continue rifaximin and see if this is of significant benefit to her. Initially rifaximin was held as if this was not going to be a feasible option as outpatient I did not wish to start her on a medication that she would subsequently not be able to continue and then be at a even higher risk of readmission/outpatient transition failure however given that this is an option and she has had encephalopathy and hyperammonemia despite taking lactulose 3 times daily with 35 bowel movements per day, will start rifaximin and anticipate continuing this on discharge #NAFLD/cirrhosis/portal HTN/varices recent treatment for hepatic encephalopathy. T. bili improved, INR baseline, LFTs at baseline. - continue lactulose, Lasix, spironolactone (increased from 25 mg to 50mg daily during recent admission), carvedilol - trend CMP and ammonia Patient remains with significant lower extremity edema which has not had marked improvement. Renal function is at baseline. UOP with 1 unmeasured void, 3 bowel movements. Is on Lasix 40 mg daily. He has a significant secondary venous stasis component will place on extremity CDs to help mobilize fluid and switch Lasix to IV temporarily. CTA/P shows multiple paraesophageal/perigastric/peripancreatic/abdominal portosystemic collaterals. MELD 15, Child-Haro borderline class B-C. She is working on establishing with a [facility] incident response lead as an outpatient. #Thrombocytopenia - plt count at baseline. - trend CBC with VTE ppx below #chronic venous insufficiency - at baseline. - TEDs, SCDs, promote leg elevation, continue diuretics. VTE ppx: heparin every 12 hours, teds, SCDs note chronic thrombocytopenia (at baseline) however history of DVT Dispo: med surg Admission and Anticipated Discharge Date Admission Date: January 29, 2025 Subjective Seen at the bedside. No fever chills or sweats. Denies dysuria. Denies polyuria She reports she has been taking her lactulose at home and having around 34 bowel movements per day She feels much better today than she did yesterday. She notes the shaking has not completely resolved but has dramatically improved, confusion also has greatly improved although not completely resolved Denies abdominal pain Denies lightheadedness/dizziness/chest pain/chest pressure. Denies cough She does note that her chronic lower extremity swelling continues to be bothersome to her and has been difficult to treat over the past several months Physical Exam Physical Exam: General: Alert and oriented x 3. Cooperative. No acute distress. Answers questions appropriately, generally linear thought process although some times circumferential HEENT: Atraumatic, normocephalic. Vision and hearing grossly intact Pulm: CTAB A&P. -wheezes, -rales, -rhonchi. Symmetrical chest rise. No increase in work of breathing. No respiratory distress. Cardiac: RRR, -mrg. Radial pulses intact and symmetrical. Abdominal: Softly distended, nontender. No fluid wave Extremities: Bilateral pitting edema 3+. No asterixis Results & Data Results & Data Vital Signs (Past 12 Hours) Vital Signs Temp Pulse Resp BP Pulse Ox O2 Del Method 01/29/25 11:18 36.4 C L 60 16 105/63 98 Room Air 01/29/25 08:55 64 98 Room Air 01/29/25 07:00 36.4 C L 58 L 16 115/69 97 Room Air PG Care Time/CCT Total # of Minutes Spent Total Time Spent with Patient: Total time spent is greater than 50% in coordination of care (as documented) at patient's floor/unit and/or counseling patient: Coding Level of Care Code 33423 SUB INP/OBS CARE 3/50MIN Diagnoses Acute confusion R41.0 Acute hepatic encephalopathy K76.82 Acute UTI (urinary tract infection) N39.0 Generalized weakness R53.1
[2025-01-29 23:07] VITALS: O2SAT 96
[2025-01-30] MEDS ORDERED: FLUCONAZOLE 200 MG/100 ML BAG IV SCH (01:00)
--- NOTE | 2025-01-30 05:54 | Billing Data ---
Date of Service January 30, 2025 Coding Level of Care Code 83734 INT INP/OBS CARE
[2025-01-30 06:36] LABS: Hematocrit (blood only) 28.9 % (37.0-47.0); Hemoglobin 9.7 g/dl (12.0-16.0); Immature Granulocytes # (auto) 0.01 K/uL (0.01-0.20); Immature Granulocytes % (auto) 0.4 %; Mean Corpuscular Hemoglobin 33.9 pg (25.0-34.0); Mean Corpuscular Volume 101.0 fL (80.0-100.0); Platelet Count 56 K/uL (130-400); RDW Standard Deviation 59.2 fL (36.4-46.3); Red Blood Count 2.86 M/uL (4.20-5.40); White Blood Count 2.48 K/ul (4.8-10.8)
[2025-01-30 06:57] LABS: Alanine Aminotransferase 20.0 U/L (7-52); Albumin Globulin Ratio 0.9 (0.9-2); Albumin Level 2.4 gm/dl (3.4-5.0); Alkaline Phosphatase 120.0 U/L (34-104); Anion Gap 4.0 (3-11); Bilirubin,Total 4.4 mg/dl (0.2-1.0); Blood Urea Nitrogen 16.0 mg/dl (6-23); Calcium 8.2 mg/dl (8.6-10.3); Carbon Dioxide 28.0 mmol/L (21-32); Chloride 109.0 mmol/L (98-107); Creatinine Clr Calc Pharmacy 95.7 ml/min; Globulin 2.8 gm/dl (2.5-4.0); Glucose 90.0 mg/dl (70-99(Fasting)); Potassium 3.9 mmol/L (3.5-5.1); Sodium 141.0 mmol/L (136-145); Total Protein 5.2 gm/dl (6.0-8.3)
[2025-01-30 07:45] VITALS: BP 103/59; PULSE 60; TEMP 98.1
--- NOTE | 2025-01-30 09:35 | Discharge Summary ---
Discharge Summary Date of Service January 30, 2025 Principal Dx & Hospital Course #1 = Principal Diagnosis (1) Acute confusion: (2) Acute hepatic encephalopathy: (3) Acute UTI (urinary tract infection): (4) Generalized weakness: Plan Patient is a 69-year-old female with past medical history of NAFLD/cirrhosis, thrombocytopenia, venous insufficiency, DVT, IRVING, portal hypertension. Patient has had numerous admissions over the past few months due to confusion and was recently admitted from 01/23 to 01/25 for hepatic encephalopathy. she was feeling well at time of discharge however over the past 2 days has had some acute confusion and weakness. She is being admitted for acute encephalopathy To do as outpatient: 1. Continue lactulose 3 times daily, titrate to 35 bowel movements daily as needed 2. Continue rifaximin twice daily 3. Continue to establish with and follow-up with hepatology specialist. During admission MELD 15, Child-Haro borderline B/C he 4. Routine follow-up with PCP 5. Monitor for UTI/vaginitis symptoms. Urine culture did show Simran glabrata which is high rates of resistance to fluconazole however she had no symptoms of a UTI and there was some epithelial contamination. As there was significant toxicity to escalation of coverage specifically for Simran glabrata there is deferred on shared decision making with Suellen as she was having no clinical signs and symptoms of a UTI and her encephalopathy cleared with treatment of her hyperammonemia much more consistent with hepatic encephalopathy than infectious encephalopathy. #acute encephalopathy/candiduria CThead without acute findings continue home lactulose 30 g 3 times daily. She was having around 3-4 bowel movements per day Rifaximin initially held as patient did not know if this would be able to be a reasonable outpatient medication for her due to cost and coverage. Was able to get prior authorization for this and have this covered, subsequently started evening of 01/29 She had significant improvement with treatment of lactulose for hepatic cephalopathy and downtrended ammonia, and then marked improvement after the initiation of rifaximin. These were both continued on Candiduria Low colony counts. No symptoms of this Was treated with fluconazole during admission, this was discontinued on discharge Of note prior culture was positive for Simran glabrata which can be resistant to fluconazole however there are significant toxicity with alternative agents and as she was asymptomatic and her symptoms cleared with treatment of her hepatic encephalopathy on shared decision making further treatment of this was not pursued at time of admission. She will monitor for symptoms and follow-up with her PCP as needed #NAFLD/cirrhosis/portal HTN/varices recent treatment for hepatic encephalopathy. T. bili improved, INR baseline, LFTs at baseline. - continue lactulose, Lasix, spironolactone (increased from 25 mg to 50mg daily during recent admission), carvedilol - Rifaximin continued on discharge, they were able to get a prior Auth and cover this prior to discharge #Thrombocytopenia Platelets at baseline #chronic venous insufficiency - at baseline. - TEDs, SCDs, promote leg elevation, continue diuretics. She did not have any pulmonary edema, no significant ascites during admission. Does have a venous stasis component separate from her hepatic dysfunction Admission HPI Per Admitting Provider Patient is a 69-year-old female with past medical history of NAFLD/cirrhosis, thrombocytopenia, venous insufficiency, DVT, IRVING, portal hypertension. Patient has had numerous admissions over the past few months due to confusion and was recently admitted from 01/23 to 01/25 for hepatic encephalopathy. she was feeling well at time of discharge however over the past 2 days has had some acute confusion and weakness. She is being admitted for acute encephalopathy with etiology to be determined at time of admission. Patient seen at bedside with her present. She is alert and oriented x 4 and able to provide a history however stated she is mildly confused. Her confusion has improved after an additional (fourth dose (of lactulose 30 mg p.o. for the day. She went home on Saturday and started to develop some confusion Saturday evening. She had an increase in her lactulose from 30 g every morning and 20 g every afternoon to 30 g 3 times daily during recent admission which she has been taking as scheduled. She was prescribed rifaximin 550 mg twice daily however has not been able to pick this up yet as she needs "preapproval" with her insurance. She does endorse mild nausea and has had diarrhea with the lactulose. She denies any dizziness, lightheadedness, chest pain, shortness of breath, cough, congestion, rhinorrhea, abdominal pain, dysuria, hematuria, difficulty urinating. Her chronic lower extremity edema is at its baseline and she has been wearing her compression stockings at home. She got all of her home medications yesterday. She wishes to be full code. Discharge Exam General: A&Ox3. NAD. Cooperative. HEENT: Atraumatic, normocephalic. Pulm: CTAB A&P. -wheezes, -rales, -rhonchi. Symmetrical chest rise. No increased work of breathing. No respiratory distress. Cardiac: RRR, -mrg. Radial pulses intact and symmetrical. Abdominal: Nontender, nondistended, soft. BS present. Ext: warm, dry. +2+ edema b/l Discharge Plan Discharge Items Patient Disposition: Home - Self-Care Reason For Visit: AMS, UTI Discharge Diagnosis: Hepatic encephalopathy Condition on Discharge: Fair Activity: Resume your previous activity Non-emergency contact: Primary Care Provider Call non-emergency contact if: you have any medication questions, your symptoms worsen and your pain is not controlled Follow-up/Referrals: Marissa Alvarado PA-C [Primary Care Provider] - Diet: Heart Healthy Addtl Attending Provider Instructions: You are seen in the hospital for confusion, initially concerning for hepatic encephalopathy versus due to an infection/UTI. You improved with lactulose treatment and supportive care in the hospital, and then rapidly/greatly improved after the addition of rifaximin. This was continued on discharge. Your confusion was thought to be due to your underlying liver disease and high ammonia levels. You were evaluated for possible UTI. You did not have any clinical signs or symptoms of UTI. You had a culture which grew out Simran glabrata which can be resistant to fluconazole (which you were treated empirically with initially in the hospital). Alternative agents have significant risk of toxicity and as you were not having any signs/symptoms clinically of an infection and had low colony counts escalation of treatment to cover for this was deferred. It is likely that this was the cause of your confusion which resolved with treatment of your ammonia/liver disease; however if you have recurrent confusion, fever, chills or develop increased urinary frequency/burning/vaginal itching please seek prompt medical reevaluation by your primary care provider or at the ER as treatment for this may need to be reconsidered. You have been prescribed rifaximin 550 mg by mouth twice daily in addition to your lactulose for hepatic encephalopathy. Please continue to establish with and follow-up with a hepatic specialist. [facility] admission your MELD score was 15, and Child-Haro was borderline B/C. These are scores that you are hepatic specialist we will use when assessing your level of liver dysfunction. If you develop any new or worsening symptoms including fever, chills, sweats, chest pain, chest pressure, difficulty breathing, uncontrolled nausea/vomiting, rash, wheezing, passing out or nearly passing out, bleeding, black/bloody bowel movements, or other new or concerning symptoms please call your primary care physician, or call 911 for re-evaluation in the emergency department if you are very concerned. Pending Studies at Discharge: No Stand-Alone Forms: My [facility], Smoking Cessation Medications and DC Order Prescriptions: Continued furosemide [Lasix] 20 mg tablet 40 mg PO QAM Rx Instructions: TAKE TWO TABLETS EVERY AM furosemide 20 mg tablet 20 mg PO .Q AFTERNOON Rx Instructions: TAKE ONE TABLET DAILY AT 1PM, IN ADDITION TO TAKING TWO 20MG TABLETS IN THE AM. potassium chloride 10 mEq capsule, extended release 10 meq PO QAM zinc gluconate 50 mg Tablet 50 mg PO QAM cholecalciferol (vitamin D3) 125 mcg (5,000 unit) Capsule 125 mcg PO QAM vitamin [id number] acid 2,500-400 mcg Tablet,Disintegrating 1 tab PO QAM carvedilol 3.125 mg Tablet 3.125 mg PO BID Qty: 30 0RF solifenacin 5 mg tablet 5 mg PO DAILY lactulose 10 gram/15 mL Solution 30 g PO TID Qty: 946 0RF Xifaxan 550 mg Tablet 550 mg PO BID Qty: 60 0RF Rx Instructions: PER PT'S SPOUSE "MED HAS TO BE APPROVED THROUGH INSURANCE YET, HAS NOT STARTED". spironolactone 25 mg tablet 50 mg PO QAM Qty: 0 0RF aspirin 81 mg Tablet,Delayed Release (Dr/Ec) 81 mg PO QAM Admission Data Admit Date/Time: 01/29/25 01:02 Attending Provider: Guanako Hoyt Admit Provider: Lisbet Zelaya Primary Care Provider: Marissa Alvarado Other Providers: Guanako Hoyt; Behzad Valdivia Hospital Stay Data Consultations 01/28/25 23:48 ED Decision to Admit Stat Diagnostic Imagining Performed 01/29/25 00:48 CT abdomen pelvis wo/w con Stat Head CT [CT head/brain wo con] Stat Discharge Instructions Given to Patient (Per Discharging Provider) You are seen in the hospital for confusion, initially concerning for hepatic encephalopathy versus due to an infection/UTI. You improved with lactulose treatment and supportive care in the hospital, and then rapidly/greatly improved after the addition of rifaximin. This was continued on discharge. Your confusion was thought to be due to your underlying liver disease and high ammonia levels. You were evaluated for possible UTI. You did not have any clinical signs or symptoms of UTI. You had a culture which grew out Simran glabrata which can be resistant to fluconazole (which you were treated empirically with initially in the hospital). Alternative agents have significant risk of toxicity and as you were not having any signs/symptoms clinically of an infection and had low colony counts escalation of treatment to cover for this was deferred. It is likely that this was the cause of your confusion which resolved with treatment of your ammonia/liver disease; however if you have recurrent confusion, fever, chills or develop increased urinary frequency/burning/vaginal itching please seek prompt medical reevaluation by your primary care provider or at the ER as treatment for this may need to be reconsidered. You have been prescribed rifaximin 550 mg by mouth twice daily in addition to your lactulose for hepatic encephalopathy. Please continue to establish with and follow-up with a hepatic specialist. During admission your MELD score was 15, and Child-Haro was borderline B/C. These are scores that you are hepatic specialist we will use when assessing your level of liver dysfunction. If you develop any new or worsening symptoms including fever, chills, sweats, chest pain, chest pressure, difficulty breathing, uncontrolled nausea/vomiting, rash, wheezing, passing out or nearly passing out, bleeding, black/bloody bowel movements, or other new or concerning symptoms please call your primary care physician, or call 911 for re-evaluation in the emergency department if you are very concerned. Total Time Total Time Spent Total Time Spent (In Minutes): Time spend day of discharge 40 minutes including direct patient care, documentation, review of labs and images, and coordination of care. Coding Level of Care Code 78730 INP/OBS DISCH >30 MIN Diagnoses Acute confusion R41.0 Acute hepatic encephalopathy K76.82 Acute UTI (urinary tract infection) N39.0 Generalized weakness R53.1
== END 2025-01-30 11:40 | disposition home or self-care (01) | DRG 442 ==
LOC: SUATTDRO → ED 21:13 → 3N 01-29 01:02 → SUATTDRO 01-29 01:02 → 3N 01-29 01:56

== ENCOUNTER 2025-02-02 19:04 | Inpatient (IN) ==
[2025-02-02 19:51] LABS: Hematocrit (blood only) 31.5 % (37.0-47.0); Hemoglobin 10.7 g/dl (12.0-16.0); Immature Granulocytes # (auto) 0.00 K/uL (0.01-0.20); Immature Granulocytes % (auto) 0.0 %; Mean Corpuscular Hemoglobin 33.9 pg (25.0-34.0); Mean Corpuscular Volume 99.7 fL (80.0-100.0); Platelet Count 79 K/uL (130-400); RDW Standard Deviation 58.5 fL (36.4-46.3); Red Blood Count 3.16 M/uL (4.20-5.40); White Blood Count 2.97 K/ul (4.8-10.8)
[2025-02-02 19:56] LABS: Base Excess VBG 8.0 mEq/L; HCO3 VBG 33 mmol/L; Oxygen Saturation VBG < 60.0 %; PCO2 VBG 45 mmHg (38-50); PO2 VBG 30 mmHg; pH VBG 7.47 (7.36-7.41)
[2025-02-02 20:07] LABS: Alanine Aminotransferase 26.0 U/L (7-52); Albumin Level 2.8 gm/dl (3.4-5.0); Alkaline Phosphatase 152.0 U/L (34-104); Anion Gap 5.0 (3-11); Bilirubin,Total 4.0 mg/dl (0.2-1.0); Blood Urea Nitrogen 23.0 mg/dl (6-23); Calcium 8.8 mg/dl (8.6-10.3); Carbon Dioxide 31.0 mmol/L (21-32); Chloride 104.0 mmol/L (98-107); Creatinine Clr Calc Pharmacy 69.9 ml/min; Glucose 97.0 mg/dl (70-99(Fasting)); Lipase 14.0 U/L (11-82); Magnesium 1.7 mg/dl (1.7-2.4); Potassium 4.4 mmol/L (3.5-5.1); Sodium 140.0 mmol/L (136-145); Total Protein 6.1 gm/dl (6.0-8.3)
[2025-02-02 20:55] LABS: INR 1.3 (0.9-1.1); Partial Thromboplastin Time 29 Seconds (21-31); Prothrombin Time 14.0 Seconds (9.0-12.0)
--- NOTE | 2025-02-02 21:24 | CT Scan Report ---
Exam(s): CT HEAD Without Contrast EXAM: CT Head Without Intravenous Contrast CLINICAL HISTORY: Reason for exam: weakness. TECHNIQUE: Axial computed tomography images of the head/brain without intravenous contrast. CTDI is 37.95 mGy and DLP is 702 mGy-cm. Automated exposure control was utilized for the study. A dose lowering technique was utilized adhering to the principles of ALARA. COMPARISON: Prior head CT from January 29, 2025. FINDINGS: Brain: Unremarkable. No hemorrhage. Mild nonspecific white matter changes. No edema. Ventricles: Unremarkable. No ventriculomegaly. Bones/joints: Unremarkable. No acute fracture. Soft tissues: Unremarkable. Sinuses: Unremarkable as visualized. No acute sinusitis. Mastoid air cells: Unremarkable as visualized. No mastoid effusion. IMPRESSION: No evidence of acute intracranial pathology. Electronically signed by: Areli Campbell MD 02/02/25 21:23 PM
[2025-02-02] MEDS: LACTULOSE SYRUP 20 GM/30 ML UDC PO STA (21:58)
--- NOTE | 2025-02-02 22:46 | History & Physical Report ---
Date of Service February 02, 2025 Assessment & Plan (1) Acute hepatic encephalopathy: (2) Acute confusion: (3) Cirrhosis: Plan The patient is a 69-year-old female with a past medical history including recurrent hepatic encephalopathy, diverticulitis, status post spinal surgery, neurogenic claudication due to lumbar spinal stenosis, hepatic cirrhosis, portal hypertension, NAFLD, and hypertension. Her most recent hospitalizations for hepatic encephalopathy are: 12/31-01/01/2025, 01/23-01/25/2025 and 01/29-01/30/2025. The patient presents to the emergency department, with her , after he noticed that she had developed an acute return of her confusion, and decreased responsiveness to him when he tried to help her this morning. She status post hospitalization most recently from 01/29-01/30/2025, where she was admitted for hepatic encephalopathy, and was discharged on her usual lactulose prescription and had the addition of Xifaxan. Her reports that she had been taking all medications as directed, until this morning. The patient herself is not responding to questions, and her provides most of the information regarding HPI and ROS. Ammonia level is 172 in the ED today, with most recent from 01/30 of 51. As noted above, her reports that she has been taking her medications as directed, and he reports that he has physically been watching her take the medications. He reports that she has had no signs of infection. She had been doing well since hospitalization until the morning of admission, 02/02, when she became less cooperative and more confused. She did not take any medications today. CT scan of head in the hospital today is negative. From the ED patient received lactulose 30 mg p.o. x 1. Acute hepatic encephalopathy/acute confusion- Unclear etiology at this time. reports that she has been taking medications as directed, including the addition of Xifaxan that was added at last hospitalization on 01/30. Recent hospitalizations: 12/31-01/01/2025, 01/23-01/25/2025, and 01/29-01/30/2025. Ammonia level is 172 on admission, significantly higher than previous, in particular on 01/30 it was 51. Continue lactulose 30 g p.o. 3 times daily Xifaxan 550 mg p.o. twice daily N.p.o. for now, as patient is not alert enough to take pills, and would likely refuse them as she did at home. Serial CBC with differential, chemistry profile, magnesium, PT/INR/PTT, and ammonia level Simran glabrata UTI- Noted at last admission, Sensitivities still pending For now, fluconazole to 200 mg IV daily with first dose now Hypertension/portal hypertension- Holding aspirin, carvedilol, furosemide, potassium chloride, spironolactone due to relative hypotension with current blood pressure 100/57 History of Present Illness Chief Complaint: The patient presents to the emergency department, with her , after he noticed that she had developed an acute return of her confusion, and decreased responsiveness to him when he tried to help her this morning. She status post hospitalization most recently from 01/29-01/30/2025, where she was admitted for hepatic encephalopathy, and was discharged on her usual lactulose prescription and had the addition of Xifaxan. Her reports that she had been taking all medications as directed, until this morning. The patient herself is not responding to questions, and her provides most of the information regarding HPI and ROS. Primary Care Provider: Marissa Alvarado PA-C The patient is a 69-year-old female with a past medical history including recurrent hepatic encephalopathy, diverticulitis, status post spinal surgery, neurogenic claudication due to lumbar spinal stenosis, hepatic cirrhosis, portal hypertension, NAFLD, and hypertension. Her most recent hospitalizations for hepatic encephalopathy are: 12/31-01/01/2025, 01/23-01/25/2025 and 01/29-01/30/2025. The patient presents to the emergency department, with her , after he noticed that she had developed an acute return of her confusion, and decreased responsiveness to him when he tried to help her this morning. She status post hospitalization most recently from 01/29-01/30/2025, where she was admitted for hepatic encephalopathy, and was discharged on her usual lactulose prescription and had the addition of Xifaxan. Her reports that she had been taking all medications as directed, until this morning. The patient herself is not responding to questions, and her provides most of the information regarding HPI and ROS. Ammonia level is 172 in the ED today, with most recent from 01/30. As noted above, her reports that she has been taking her medications as directed, and he reports that he has physically been watching her take the medications. He reports that she has had no signs of infection. She had been doing well since hospitalization until the morning of admission, 02/02, when she became less cooperative and more confused. She did not take any medications today. CT scan of head in the hospital today is negative. From the ED patient received lactulose 30 mg p.o. x 1. Allergies Allergy/AdvReac Type Severity Reaction Status Date / Time No Known Allergies Allergy Verified 02/02/25 21:44 Home Medications Medication Instructions Recorded Confirmed Type aspirin 81 mg tablet,delayed 81 mg PO QAM 11/17/23 02/02/25 History release furosemide 20 mg tablet (Lasix) 40 mg PO QAM 08/18/24 02/02/25 History cholecalciferol (vitamin D3) 125 125 mcg PO QAM 12/31/24 02/02/25 History mcg (5,000 unit) capsule furosemide 20 mg tablet 20 mg PO .Q AFTERNOON 12/31/24 02/02/25 History potassium chloride 10 mEq 10 meq PO QAM 12/31/24 02/02/25 History capsule,extended release vitamin B12 2,500 mcg-folic acid 1 tab PO QAM 12/31/24 02/02/25 History 400 mcg disintegrating tablet zinc gluconate 50 mg tablet 50 mg PO QAM 12/31/24 02/02/25 History solifenacin 5 mg tablet 5 mg PO DAILY 01/22/25 02/02/25 History lactulose 10 gram/15 mL oral 30 g (45 mL) PO TID #946 mL 01/25/25 02/02/25 Rx solution spironolactone 25 mg tablet 50 mg (2 x 25 mg) PO QAM #0 tabs 01/25/25 02/02/25 Rx carvedilol 3.125 mg tablet 3.125 mg PO BID #60 tabs 01/30/25 02/02/25 Rx rifaximin 550 mg tablet (Xifaxan) 550 mg PO BID #60 tabs 01/30/25 02/02/25 Rx Past Med/Surg History Problem List (Updated 02/02/25 @ 23:21 by Jay Jay Sher MD) Acute hepatic encephalopathy (Acute) Acute confusion (Acute) Acute hepatic encephalopathy (Acute) History of diverticulitis Diarrhea Postoperative back pain (Acute) Right leg swelling (Acute) S/P spinal surgery Neurogenic claudication due to lumbar spinal stenosis Cirrhosis Portal hypertension NAFLD (nonalcoholic fatty liver disease) (Acute) Medical History Acute UTI (urinary tract infection) Thrombocytopenia History of diverticulitis no hospitalizations - no current issues Systolic murmur Hx of iron deficiency anemia has had 2 iron infusions in the past Hx of portal hypertension NAFLD (nonalcoholic fatty liver disease) as per patient following with Demi Price "liver doctor" - did see [facility] 05/2024 Cirrhosis as per patient following with Demi Price "liver doctor" - did see [facility] 05/2024 Arthritis Hx of deep venous thrombosis (~2019) left foot s/p hip surgery (was on blood thinner for 6 months) Heart murmur 01/2023; f/u dr. miranda, cardio "nothing of concern" as per patient Surgical History History of lumbar surgery (10/2023) Hardware present History of open reduction and internal fixation (ORIF) procedure right femur Hx of tooth extraction all top teeth-wears top denture History of bladder surgery sling History of hip surgery left side>repaired after fx History of cholecystectomy History of appendectomy H/O abdominal surgery removed sac formed in abdominal region with cauterization *long time ago [place] teeth removed History of cataract surgery Bilateral Nausea and vomiting after administration of anesthetic agent denies needing scop patch H/O colonoscopy History of esophagogastroduodenoscopy (EGD) H/O gastric bypass 2014 *lost 135lbs Family History Mother Dementia Son Crohn's disease Other Heart disease No family history of adverse response to anesthesia Denies family history of Colorectal cancer Ulcerative colitis Social History Smoking Status: Never smoker Second Hand Exposure: No; Do You Dip or Chew Tobacco: No; Hx Alcohol Use: No Hx Substance Use: No Preferred Language: Upper Sorbian Communication Ability: Effective Electric Bath Attendant Required: No Beliefs That Will Affect Care: None Current Living Situation: Spouse Feels Safe at Home: Yes Assistive Devices: Cane Review of Systems Review of Systems: Patient is not able to contribute to ROS or HPI due to confusion. supplies information noted above. Physical Exam Physical Exam: The patient is awake, confused, normocephalic and atraumatic, lying in bed and in no acute distress. HEENT--PERRL, EOMI, mucous membranes and oropharynx dry. Neck--supple. No JVD. No bruits. Thyroid normal, trachea midline, no adenopathy. Heart--normal S1 and S2. No murmurs, rubs or gallops. Lungs--clear bilaterally, no respiratory distress, no accessory muscle use. Abdomen--normal bowel sounds and soft. Nontender. Nondistended, no hernias or masses, no organomegaly. Extremities--no cyanosis or clubbing. No edema. There are good distal pulses b/l. Dermatologic--normal skin turgor, normal color, no abnormal lymph nodes, no rash. Neurologic--asterixis Rheumatologic--normal range of motion. Psychiatric--normal affect. Results & Data Results & Data Vital Signs (Past 12 Hours) Vital Signs Temp Pulse Pulse Resp BP BP Pulse Ox 02/02/25 21:04 61 16 100/57 L 100 02/02/25 19:49 56 L 16 100/57 L 99 02/02/25 19:49 99 02/02/25 19:45 56 L 02/02/25 19:43 100 H 16 98 02/02/25 19:08 36.6 C 55 L 18 118/55 L 100 O2 Del Method 02/02/25 21:04 Room Air 02/02/25 19:49 Room Air 02/02/25 19:49 Room Air 02/02/25 19:45 02/02/25 19:43 Room Air 02/02/25 19:08 Room Air Laboratory Results Laboratory Results WBC 2.97 K/ul (4.8-10.8) L 02/02/25 19:35 RBC 3.16 M/uL (4.20-5.40) L 02/02/25 19:35 Hgb 10.7 g/dl (12.0-16.0) L 02/02/25 19:35 Hct 31.5 % (37.0-47.0) L 02/02/25 19:35 MCV 99.7 fL (80.0-100.0) 02/02/25 19:35 MCH 33.9 pg (25.0-34.0) 02/02/25 19:35 MCHC 34.0 g/dL (32.0-36.0) 02/02/25 19:35 RDW Std Deviation 58.5 fL (36.4-46.3) H 02/02/25 19:35 RDW Coeff of Rene 15.9 % (11.5-14.5) H 02/02/25 19:35 Plt Count 79 K/uL (130-400) L 02/02/25 19:35 MPV 11.1 fL (9.4-12.4) 02/02/25 19:35 Immature Gran % (Auto) 0.0 % 02/02/25 19:35 Neut % (Auto) 60.2 % 02/02/25 19:35 Lymph % (Auto) 24.9 % 02/02/25 19:35 [place]aca % (Auto) 11.8 % 02/02/25 19:35 Eos % (Auto) 2.4 % 02/02/25 19:35 Baso % (Auto) 0.7 % 02/02/25 19:35 Neut # (Auto) 1.79 K/uL (1.40-6.50) 02/02/25 19:35 Lymph # (Auto) 0.74 K/uL (1.20-3.40) L 02/02/25 19:35 [place]aca # (Auto) 0.35 K/uL (0.11-0.59) 02/02/25 19:35 Eos # (Auto) 0.07 K/uL (0.00-0.50) 02/02/25 19:35 Baso # (Auto) 0.02 K/uL (0.00-0.20) 02/02/25 19:35 Immature Gran # (Auto) 0.00 K/uL (0.01-0.20) L 02/02/25 19:35 PT 14.0 Seconds (9.0-12.0) H 02/02/25 19:35 INR 1.3 (0.9-1.1) H 02/02/25 19:35 APTT 29 Seconds (21-31) 02/02/25 19:35 PTT Ratio 1.1 02/02/25 19:35 VBG pH 7.47 (7.36-7.41) H 02/02/25 19:35 VBG pCO2 45 mmHg (38-50) 02/02/25 19:35 VBG pO2 30 mmHg 02/02/25 19:35 VBG HCO3 33 mmol/L 02/02/25 19:35 VBG O2 Saturation < 60.0 % 02/02/25 19:35 VBG Base Excess 8.0 mEq/L 02/02/25 19:35 Sodium 140 mmol/L (136-145) 02/02/25 19:35 Potassium 4.4 mmol/L (3.5-5.1) 02/02/25 19:35 Chloride 104 mmol/L (98-107) 02/02/25 19:35 Carbon Dioxide 31 mmol/L (21-32) 02/02/25 19:35 Anion Gap 5 (3-11) 02/02/25 19:35 BUN 23 mg/dl (6-23) 02/02/25 19:35 Creatinine 0.87 mg/dl (0.6-1.2) 02/02/25 19:35 Est Cr Clr Drug Dosing 69.9 ml/min 02/02/25 19:35 eGFR 71.19 02/02/25 19:35 BUN/Creatinine Ratio 26.4 (10-20) H 02/02/25 19:35 Glucose 97 mg/dl (70-99(Fasting)) 02/02/25 19:35 POC Glucose 105 mg/dl (70-99) H 02/02/25 19:32 Calcium 8.8 mg/dl (8.6-10.3) 02/02/25 19:35 Magnesium 1.7 mg/dl (1.7-2.4) 02/02/25 19:35 Total Bilirubin 4.0 mg/dl (0.2-1.0) H 02/02/25 19:35 Direct Bilirubin 0.7 mg/dl (0-0.2) H 02/02/25 19:35 AST 58 U/L (13-39) H 02/02/25 19:35 ALT 26 U/L (7-52) 02/02/25 19:35 Alkaline Phosphatase 152 U/L (34-104) H 02/02/25 19:35 Ammonia 172.0 umol/L (18-72) H 02/02/25 19:35 Total Protein 6.1 gm/dl (6.0-8.3) 02/02/25 19:35 Albumin 2.8 gm/dl (3.4-5.0) L 02/02/25 19:35 Lipase 14 U/L (11-82) 02/02/25 19:[address] 02/02/25 19:26 Exam(s): CT HEAD Without Contrast EXAM: CT Head Without Intravenous Contrast CLINICAL HISTORY: Reason for exam: weakness. TECHNIQUE: Axial computed tomography images of the head/brain without intravenous contrast. CTDI is 37.95 mGy and DLP is 702 mGy-cm. Automated exposure control was utilized for the study. A dose lowering technique was utilized adhering to the principles of ALARA. COMPARISON: Prior head CT from January 29, 2025. FINDINGS: Brain: Unremarkable. No hemorrhage. Mild nonspecific white matter changes. No edema. Ventricles: Unremarkable. No ventriculomegaly. Bones/joints: Unremarkable. No acute fracture. Soft tissues: Unremarkable. Sinuses: Unremarkable as visualized. No acute sinusitis. Mastoid air cells: Unremarkable as visualized. No mastoid effusion. IMPRESSION: No evidence of acute intracranial pathology. Electronically signed by: Areli Campbell MD 02/02/25 21:23 PM Code Status & VTE Plan Code Status Full code VTE Prophylaxis Plan VTE Prophylaxis will be ordered: Yes PG Care Time/CCT Total # of Minutes Spent Total Time Spent with Patient: Total time spent is greater than 50% in coordination of care (as documented) at patient's floor/unit and/or counseling patient: Coding Level of Care Code 74511 INT INP/OBS CARE 3/75MIN Diagnoses Acute hepatic encephalopathy K76.82 Acute confusion R41.0 Cirrhosis K74.60
--- NOTE | 2025-02-02 23:21 | Emergency Department Note ---
History of Present Illness General Chief complaint: Weakness Stated complaint: CONFUSION, WEAKNESS, SHAKING Time Seen by Provider: 02/02/25 19:15 Source: family ( at bedside) History of Present Illness Provider complaint: Altered mental status 69-year-old female presents emerged department for altered mental status. reports that the patient is shaking and confused again. reports he thinks that the patient's ammonia is high again. Patient denies any falls fevers nausea vomiting. Home Medications Medication Instructions Recorded Confirmed Type aspirin 81 mg tablet,delayed 81 mg PO QAM 11/17/23 02/02/25 History release furosemide 20 mg tablet (Lasix) 40 mg PO QAM 08/18/24 02/02/25 History cholecalciferol (vitamin D3) 125 125 mcg PO QAM 12/31/24 02/02/25 History mcg (5,000 unit) capsule furosemide 20 mg tablet 20 mg PO .Q AFTERNOON 12/31/24 02/02/25 History potassium chloride 10 mEq 10 meq PO QAM 12/31/24 02/02/25 History capsule,extended release vitamin B12 2,500 mcg-folic acid 1 tab PO QAM 12/31/24 02/02/25 History 400 mcg disintegrating tablet zinc gluconate 50 mg tablet 50 mg PO QAM 12/31/24 02/02/25 History solifenacin 5 mg tablet 5 mg PO DAILY 01/22/25 02/02/25 History lactulose 10 gram/15 mL oral 30 g (45 mL) PO TID #946 mL 01/25/25 02/02/25 Rx solution spironolactone 25 mg tablet 50 mg (2 x 25 mg) PO QAM #0 tabs 01/25/25 02/02/25 Rx carvedilol 3.125 mg tablet 3.125 mg PO BID #60 tabs 01/30/25 02/02/25 Rx rifaximin 550 mg tablet (Xifaxan) 550 mg PO BID #60 tabs 01/30/25 02/02/25 Rx Allergies Allergy/AdvReac Type Severity Reaction Status Date / Time No Known Allergies Allergy Verified 02/02/25 21:44 Past Med/Surg History Problem List (Updated 02/02/25 @ 23:21 by Jay Jay Sher MD) Acute hepatic encephalopathy (Acute) Acute confusion (Acute) Acute hepatic encephalopathy (Acute) History of diverticulitis Diarrhea Postoperative back pain (Acute) Right leg swelling (Acute) S/P spinal surgery Neurogenic claudication due to lumbar spinal stenosis Cirrhosis Portal hypertension NAFLD (nonalcoholic fatty liver disease) (Acute) Medical History Acute UTI (urinary tract infection) Thrombocytopenia History of diverticulitis no hospitalizations - no current issues Systolic murmur Hx of iron deficiency anemia has had 2 iron infusions in the past Hx of portal hypertension NAFLD (nonalcoholic fatty liver disease) as per patient following with Demi Price "liver doctor" - did see [facility] [place] [facility] 05/2024 Cirrhosis as per patient following with Demi Price "liver doctor" - did see [facility] [place] [facility] 05/2024 Arthritis Hx of deep venous thrombosis (~2019) left foot s/p hip surgery (was on blood thinner for 6 months) Heart murmur 01/2023; f/u dr. miranda, cardio "nothing of concern" as per patient Surgical History History of lumbar surgery (10/2023) Hardware present History of open reduction and internal fixation (ORIF) procedure right femur Hx of tooth extraction all top teeth-wears top denture History of bladder surgery sling History of hip surgery left side>repaired after fx History of cholecystectomy History of appendectomy H/O abdominal surgery removed sac formed in abdominal region with cauterization *long time ago [place] teeth removed History of cataract surgery Bilateral Nausea and vomiting after administration of anesthetic agent denies needing scop patch H/O colonoscopy History of esophagogastroduodenoscopy (EGD) H/O gastric bypass 2014 *lost 135lbs Family History Mother Dementia Son Crohn's disease Other Heart disease No family history of adverse response to anesthesia Denies family history of Colorectal cancer Ulcerative colitis Social History Smoking Status: Never smoker Second Hand Exposure: No; Do You Dip or Chew Tobacco: No; Hx Alcohol Use: No Hx Substance Use: No Preferred Language: [place] Communication Ability: Effective Motor Winder Required: No Beliefs That Will Affect Care: None Current Living Situation: Spouse Feels Safe at Home: Yes Assistive Devices: Cane Physical Exam Vital Signs Vital Signs - 24 hr 02/02/25 19:08 02/02/25 19:43 02/02/25 19:45 Temperature 36.6 C Temperature Source Temporal Artery Scan Pulse Rate 55 L 100 H 56 L Pulse Rate [Apical] Pulse Rhythm Regular Pulse Strength Normal Respiratory Rate 18 16 Respiratory Effort / Characteristics Non-Labored Spontaneous Respiratory Depth Normal Respiratory Pattern Regular Blood Pressure 118/55 L Blood Pressure [Right Arm] Blood Pressure Mean 76 Blood Pressure Mean [Right Arm] Blood Pressure Position Sitting Pulse Oximetry 100 98 Oxygen Delivery Method Room Air Room Air Sepsis Recent Fever Within 48 Hours No Sepsis New/Unexplained Change in Mental Status N/A Sepsis Action Taken by Nursing No Action Required 02/02/25 19:49 02/02/25 19:49 02/02/25 21:04 Temperature Temperature Source Pulse Rate Pulse Rate [Apical] 56 L 61 Pulse Rhythm Pulse Strength Respiratory Rate 16 16 Respiratory Effort / Characteristics Non-Labored Spontaneous Respiratory Depth Respiratory Pattern Blood Pressure Blood Pressure [Right Arm] 100/57 L 100/57 L Blood Pressure Mean Blood Pressure Mean [Right Arm] 71 71 Blood Pressure Position Pulse Oximetry 99 99 100 Oxygen Delivery Method Room Air Room Air Room Air Sepsis Recent Fever Within 48 Hours Sepsis New/Unexplained Change in Mental Status Sepsis Action Taken by Nursing Physical Exam HENT: Exam performed. - Head: Normocephalic and atraumatic. EYES: Conjunctivae and EOM are normal. Right eye exhibits no discharge. Left eye exhibits no discharge. No scleral icterus. NECK: Normal range of motion. Neck supple. No JVD present. CV: Normal rate, regular rhythm, normal heart sounds and intact distal pulses. There is no peripheral edema. Palpable radial pulses bue. PULM/CHEST: Effort normal and breath sounds normal. No respiratory distress. No stridor. no wheezes. no rales. ABD: The abdomen is soft. There is no tenderness. NEURO: Patient is alert but not oriented. Asterixis is present. Motor and sensation grossly intact. SKIN: Skin is warm and dry. He is not diaphoretic. PSYCH: normal mood and affect. Behavior is normal. Judgment and thought content normal. Course Course 191: The patient was evaluated in room C8. A complete history and physical exam was performed Cardiac monitoring: An order was placed for continuous cardiac monitoring. The monitor shows a rate of 60 with sinus rhythm interpreted by de 2145: Labs show white blood cell count 2.97 hemoglobin 10.7 VBG is unremarkable. Bilirubin 4 direct bilirubin 0.7 AST 58. Bilirubin levels and AST are at baseline. Ammonia 172, highest that has been in this hospital. CT of the head shows no acute abnormality. Patient will be admitted to the [facility] team. Lactulose ordered for the patient. Administered Medications Discontinued Medications Lactulose (Lactulose Syrup 20 Gm/30 Ml Udc) 30 gm PO NOW STA Stop: 02/02/25 21:46 Last Admin: 02/02/25 21:58 Dose: 30 gm Documented By: ABRAHAM Rifaximin (Rifaximin 550 Mg Tablet) 550 mg PO NOW STA Stop: 02/02/25 22:20 Last Admin: 02/02/25 22:46 Dose: 550 mg Documented By: ABRAHAM Medical Decision Making Laboratory Data Attestation: I reviewed the patient's lab results. 02/02/25 19:35 02/02/25 19:35 Lab Results 02/02/25 02/02/25 Range/Units 19:32 19:35 WBC 2.97 L (4.8-10.8) K/ul RBC 3.16 L (4.20-5.40) M/uL Hgb 10.7 L (12.0-16.0) g/dl Hct 31.5 L (37.0-47.0) % MCV 99.7 (80.0-100.0) fL MCH 33.9 (25.0-34.0) pg MCHC 34.0 (32.0-36.0) g/dL RDW Std Deviation 58.5 H (36.4-46.3) fL RDW Coeff of Rene 15.9 H (11.5-14.5) % Plt Count 79 L (130-400) K/uL MPV 11.1 (9.4-12.4) fL Immature Gran % (Auto) 0.0 % Neut % (Auto) 60.2 % Lymph % (Auto) 24.9 % [place] % (Auto) 11.8 % Eos % (Auto) 2.4 % Baso % (Auto) 0.7 % Neut # (Auto) 1.79 (1.40-6.50) K/uL Lymph # (Auto) 0.74 L (1.20-3.40) K/uL [place] # (Auto) 0.35 (0.11-0.59) K/uL Eos # (Auto) 0.07 (0.00-0.50) K/uL Baso # (Auto) 0.02 (0.00-0.20) K/uL Immature Gran # (Auto) 0.00 L (0.01-0.20) K/uL PT 14.0 H (9.0-12.0) Seconds INR 1.3 H (0.9-1.1) APTT 29 (21-31) Seconds PTT Ratio 1.1 VBG pH 7.47 H (7.36-7.41) VBG pCO2 45 (38-50) mmHg VBG pO2 30 mmHg VBG HCO3 33 mmol/L VBG O2 Saturation < 60.0 % VBG Base Excess 8.0 mEq/L Sodium 140 (136-145) mmol/L Potassium 4.4 (3.5-5.1) mmol/L Chloride 104 (98-107) mmol/L Carbon Dioxide 31 (21-32) mmol/L Anion Gap 5 (3-11) BUN 23 (6-23) mg/dl Creatinine 0.87 (0.6-1.2) mg/dl Est Cr Clr Drug Dosing 69.9 ml/min eGFR 71.19 BUN/Creatinine Ratio 26.4 H (10-20) Glucose 97 (70-99(Fasting)) mg/dl POC Glucose 105 H (70-99) mg/dl Calcium 8.8 (8.6-10.3) mg/dl Magnesium 1.7 (1.7-2.4) mg/dl Total Bilirubin 4.0 H (0.2-1.0) mg/dl Direct Bilirubin 0.7 H (0-0.2) mg/dl AST 58 H (13-39) U/L ALT 26 (7-52) U/L Alkaline Phosphatase 152 H (34-104) U/L Ammonia 172.0 H (18-72) umol/L Total Protein 6.1 (6.0-8.3) gm/dl Albumin 2.8 L (3.4-5.0) gm/dl Lipase 14 (11-82) U/L Imaging Data Radiologist's Impression: Head CT 02/02/25 19:26 Exam(s): CT HEAD Without Contrast EXAM: CT Head Without Intravenous Contrast CLINICAL HISTORY: Reason for exam: weakness. TECHNIQUE: Axial computed tomography images of the head/brain without intravenous contrast. CTDI is 37.95 mGy and DLP is 702 mGy-cm. Automated exposure control was utilized for the study. A dose lowering technique was utilized adhering to the principles of ALARA. COMPARISON: Prior head CT from January 29, 2025. FINDINGS: Brain: Unremarkable. No hemorrhage. Mild nonspecific white matter changes. No edema. Ventricles: Unremarkable. No ventriculomegaly. Bones/joints: Unremarkable. No acute fracture. Soft tissues: Unremarkable. Sinuses: Unremarkable as visualized. No acute sinusitis. Mastoid air cells: Unremarkable as visualized. No mastoid effusion. IMPRESSION: No evidence of acute intracranial pathology. Electronically signed by: Areli Campbell MD 02/02/25 21:[address] [facility] Narrative 1915: The patient was evaluated in room C8. A complete history and physical exam was performed Cardiac monitoring: An order was placed for continuous cardiac monitoring. The monitor shows a rate of 60 with sinus rhythm interpreted by de 2145: Labs show white blood cell count 2.97 hemoglobin 10.7 VBG is unremarkable. Bilirubin 4 direct bilirubin 0.7 AST 58. Bilirubin levels and AST are at baseline. Ammonia 172, highest that has been in this hospital. CT of the head shows no acute abnormality. Patient will be admitted to the [facility] team. Lactulose ordered for the patient. Impression & Plan Acute hepatic encephalopathy Discharge Plan Visit Data Chief Complaint: Weakness Stated Complaint: CONFUSION, WEAKNESS, SHAKING ED Provider: Jay Jay Sher Discharge Problem: Acute hepatic encephalopathy Patient Disposition: Admitted As Inpatient Condition: Fair Forms Stand Alone Forms: My [facility] Prescriptions Prescriptions: No Action furosemide [Lasix] 20 mg tablet 40 mg PO QAM Rx Instructions: TAKE TWO TABLETS EVERY AM furosemide 20 mg tablet 20 mg PO .Q AFTERNOON Rx Instructions: TAKE ONE TABLET DAILY AT 1PM, IN ADDITION TO TAKING TWO 20MG TABLETS IN THE AM. potassium chloride 10 mEq capsule, extended release 10 meq PO QAM zinc gluconate 50 mg Tablet 50 mg PO QAM cholecalciferol (vitamin D3) 125 mcg (5,000 unit) Capsule 125 mcg PO QAM vitamin C36-cateh acid 2,500-400 mcg Tablet,Disintegrating 1 tab PO QAM solifenacin 5 mg tablet 5 mg PO DAILY lactulose 10 gram/15 mL Solution 30 g PO TID Qty: 946 0RF spironolactone 25 mg tablet 50 mg PO QAM Qty: 0 0RF aspirin 81 mg Tablet,Delayed Release (Dr/Ec) 81 mg PO QAM Xifaxan 550 mg tablet 550 mg PO BID Qty: 60 0RF carvedilol 3.125 mg tablet 3.125 mg PO BID Qty: 60 0RF Rx Instructions: must administer with a meal/food Referrals Referrals: Marissa Alvarado PA-C [Primary Care Provider] -
[2025-02-02] MEDS: FLUCONAZOLE 200 MG/100 ML BAG IV STA (23:56)
[2025-02-03 04:32] LABS: Appearance Urine Clear (Clear); Bacteria Urine Automated 2+ (None Seen); Cast Urine Automated 0-2 /lpf (0-2); Glucose Urine UA Negative (Negative)
[2025-02-03 06:25] LABS: Hematocrit (blood only) 29.5 % (37.0-47.0); Hemoglobin 9.7 g/dl (12.0-16.0); Immature Granulocytes # (auto) 0.00 K/uL (0.01-0.20); Immature Granulocytes % (auto) 0.0 %; Mean Corpuscular Hemoglobin 32.8 pg (25.0-34.0); Mean Corpuscular Volume 99.7 fL (80.0-100.0); Platelet Count 56 K/uL (130-400); RDW Standard Deviation 59.0 fL (36.4-46.3); Red Blood Count 2.96 M/uL (4.20-5.40); White Blood Count 2.06 K/ul (4.8-10.8)
[2025-02-03 06:39] LABS: Alanine Aminotransferase 21.0 U/L (7-52); Albumin Globulin Ratio 0.8 (0.9-2); Albumin Level 2.4 gm/dl (3.4-5.0); Alkaline Phosphatase 126.0 U/L (34-104); Anion Gap 5.0 (3-11); Bilirubin,Total 4.0 mg/dl (0.2-1.0); Blood Urea Nitrogen 22.0 mg/dl (6-23); Calcium 8.5 mg/dl (8.6-10.3); Carbon Dioxide 30.0 mmol/L (21-32); Chloride 108.0 mmol/L (98-107); Creatinine Clr Calc Pharmacy 80.3 ml/min; Globulin 3.1 gm/dl (2.5-4.0); Glucose 96.0 mg/dl (70-99(Fasting)); Magnesium 1.7 mg/dl (1.7-2.4); Potassium 3.9 mmol/L (3.5-5.1); Sodium 143.0 mmol/L (136-145); Total Protein 5.5 gm/dl (6.0-8.3)
[2025-02-03 07:14] LABS: INR 1.4 (0.9-1.1); Partial Thromboplastin Time 31 Seconds (21-31); Prothrombin Time 14.9 Seconds (9.0-12.0)
[2025-02-03] MEDS: LACTULOSE SYRUP 20 GM/30 ML UDC PO SCH (08:40)
[2025-02-03] MEDS: OXYBUTYNIN CHLORIDE XL 5 MG TABCR PO SCH (08:40)
[2025-02-03] MEDS: ASPIRIN 81 MG ECTAB PO SCH (08:40)
[2025-02-03] MEDS: PANTOprazole 40 MG/10 ML SYR IV SCH (08:41)
[2025-02-03] MEDS ORDERED: NON-FORMULARY MEDICATION (Vitamin B12-Folic Acid 2,500-400 mcg Tablet,Disintegrating) PO SCH (09:00)
[2025-02-03] MEDS: cefTRIAXone SODIUM 2,000 MG/50 ML BAG IV SCH (10:13)
[2025-02-03] MEDS: LACTULOSE SYRUP 20 GM/30 ML UDC PO STA (10:15)
--- NOTE | 2025-02-03 13:56 | Ultrasound Report ---
US duplex portal hepatic veins CLINICAL HISTORY: evaluate for portal venous thrombosis COMPARISON STUDY: CT of 01/29/2025 FINDINGS: There is normal direction of flow in the portal vein. No portal vein thrombosis seen at the visualized portion of the portal vein. There is normal direction of flow in the visualized hepatic v eins. Cirrhotic morphology of the liver again seen. No ascites. IMPRESSION: No portal vein thrombosis seen. ACT 112: Negative or not required by law. Electronically signed by: Devan Moore M.D. 02/03/2025 1:55 PM
--- NOTE | 2025-02-03 16:50 | Hospitalist Progress Note ---
Date of Service February 03, 2025 Assessment & Plan (1) Acute hepatic encephalopathy: (2) Cirrhosis: Plan The patient is a 69 y/o with hx gastric bypass, MAFLD cirrhosis with portal hypertension admitted to the hospital for acute on chronic hepatic encephalopathy. She has had serial admissions for HE, recurred rapidly despite compliance with lactulose and rifaximin at home. Last discharge 01/30 and readmitted 02/02. Its possible that she has UTI, however, no dysuria and all previous UAs have also been abnormal growing simran 01/22 which is unlikely UTI and mixed reinier on 01/29. Her bilirubin and INR are stable/at baseline and MELD 3.0 calculates to 19. She had grade 1 varices on recent EGD. No ascites on imaging and is on low dose diuretics. I reviewed her PMH/PSH and previous abdominal CTs - there are three recent ones. Her refractory HE is probably related to her gastric bypass in combination with portosystemic shunts - most notably splenorenal shunt, which is demonstrated on her CTs. Will d/w tertiary care center option of shunt closure. I updated her and DIL at bedside during separate visits today. # Hepatic encephalopathy Fourth admission since December 2024. Prescribed lactulose and rifaximin; reports compliance. More alert than last night but remains confused. Awake, able to recall 's name and residence but not neighborhood or reason for hospitalization. updated, expressed frustration over frequent readmissions. Requested assistance with hepatology referral. Treatment plan: Prescribed lactulose and rifaximin, extra dose lactulose 30 g this am. Titrate to >3 BM per day, continue rifaximin otherwise see above # Possible Urinary tract infection Previous Simran glabrata in urine on 01/22 but not on 01/29 so this is probably candiduria not simran UTI UA has been persistently abnormal, reinier grew 01/29 Unclear whether UTI, started ceftriaxone 1g q24h. UTI could precipitate an HE flare, but does not explain all four recent flares # Cirrhosis with portal hypertension - MAFLD - worked Holding furosemide and spironolactone. On carvedilol for grade 1 varices last EGD. DVT Treatment plan: Holding furosemide and spironolactone. On carvedilol. # DVT Prophylaxis: SCDs, chemoprophylaxis relatively contraindicated due to thrombocytopenia and coagulopathy. Medical Complexity: Medical decision making was complex, high risk for clinical deterioration morbidity, or mortality for this encounter. Admission and Anticipated Discharge Date Admission Date: February 02, 2025 Subjective Remains confused but 50% better according to her daughter in law at bedside Had BM overnight No cough/CP, abd pain, dysuria, minimal edema, no ascites HE recurred quickly/abruptly and severely despite taking rifaximin bid and compliance with lactulose - reporting multiple BMs per day on current dosing Physical Exam Physical Exam: General Appearance: Awake, alert, oriented to self. Vital signs: Reviewed past 24h vital signs in EMR, unremarkable. HEENT: Symmetric face. Pupils equal, round, reactive to light. EOM intact. Respiratory: Clear to auscultation bilaterally, no rhonchi, rales, or wheezes. Cardiovascular: Regular rhythm, no murmurs, rubs, or gallops. Gastrointestinal: Soft, nontender, nondistended, active bowel sounds, no suprapubic tenderness. Extremities: Warm, well perfused, 1+ foot/ankle edema. Skin: Warm, dry, well perfused, scattered spider telangiectasias. Neurological: Asterixis present. Psychiatric: Normal. Results & Data Results & Data Vital Signs (Past 12 Hours) Vital Signs Temp Pulse Pulse Resp BP Pulse Ox O2 Del Method 02/03/25 15:30 36.7 C 60 18 110/67 96 Room Air 02/03/25 15:24 64 02/03/25 14:31 Room Air 02/03/25 11:00 36.8 C 64 18 125/71 95 Room Air 02/03/25 07:12 36.6 C 66 18 100/60 98 Room Air Laboratory Results - Labs: - WBC: 2 - Hgb: 9.7 - Plt: 56 - INR: 1.4 - Cr: 0.75 - Ca: 8.5 - Bilirubin: 4 - Ammonia: 97 - Albumin: 2.4 - UA: Positive leukocyte esterase, elevated WBC, 2+ bacteria - Imaging: - C head: No acute pathology PG Care Time/CCT Total # of Minutes Spent Total Time Spent with Patient: Total time spent is greater than 50% in coordination of care (as documented) at patient's floor/unit and/or counseling patient: Coding Level of Care Code 21565 SUB INP/OBS CARE 3/50MIN Diagnoses Acute hepatic encephalopathy K76.82 Cirrhosis K74.60
[2025-02-03] MEDS ORDERED: FLUCONAZOLE 200 MG/100 ML BAG IV SCH (22:00)
[2025-02-04 06:26] LABS: Hematocrit (blood only) 29.6 % (37.0-47.0); Hemoglobin 10.0 g/dl (12.0-16.0); Immature Granulocytes # (auto) 0.00 K/uL (0.01-0.20); Immature Granulocytes % (auto) 0.0 %; Mean Corpuscular Hemoglobin 34.0 pg (25.0-34.0); Mean Corpuscular Volume 100.7 fL (80.0-100.0); Platelet Count 66 K/uL (130-400); RDW Standard Deviation 60.5 fL (36.4-46.3); Red Blood Count 2.94 M/uL (4.20-5.40); White Blood Count 2.77 K/ul (4.8-10.8)
[2025-02-04 06:53] LABS: Alanine Aminotransferase 20.0 U/L (7-52); Albumin Globulin Ratio 0.7 (0.9-2); Albumin Level 2.3 gm/dl (3.4-5.0); Alkaline Phosphatase 120.0 U/L (34-104); Anion Gap 5.0 (3-11); Bilirubin,Total 4.9 mg/dl (0.2-1.0); Blood Urea Nitrogen 20.0 mg/dl (6-23); Calcium 8.5 mg/dl (8.6-10.3); Carbon Dioxide 28.0 mmol/L (21-32); Chloride 109.0 mmol/L (98-107); Creatinine Clr Calc Pharmacy 87.9 ml/min; Globulin 3.1 gm/dl (2.5-4.0); Glucose 93.0 mg/dl (70-99(Fasting)); Magnesium 1.8 mg/dl (1.7-2.4); Potassium 3.8 mmol/L (3.5-5.1); Sodium 142.0 mmol/L (136-145); Total Protein 5.4 gm/dl (6.0-8.3)
[2025-02-04 07:07] LABS: INR 1.4 (0.9-1.1); Partial Thromboplastin Time 32 Seconds (21-31); Prothrombin Time 14.7 Seconds (9.0-12.0)
[2025-02-04 07:10] VITALS: RESP 18
[2025-02-04 11:01] VITALS: TEMP 98.2; O2SAT 97
--- NOTE | 2025-02-04 13:05 | Discharge Summary ---
Discharge Summary Date of Service February 04, 2025 Principal Dx & Hospital Course #1 = Principal Diagnosis (1) Acute hepatic encephalopathy: (2) Cirrhosis: (3) Portosystemic shunt, spontaneous: (4) Portal hypertension: (5) NAFLD (nonalcoholic fatty liver disease): (6) H/O gastric bypass: Navneet Ken is a 69 y/o with hx gastric bypass 2014, MAFLD cirrhosis with portal hypertension admitted to the hospital for acute on chronic hepatic encephalopathy. She has had serial admissions for HE, recurred rapidly in few days despite compliance with lactulose and rifaximin at home. Admissions are associated with very high ammonia levels. There was concern for UTI with abnormal UA but cultures have not shown UTI. No other acute issues or precipitating factors were identified. On low dose diuretics and no ascites, no GI bleeding. Summary: 12/31-01/01, neg urine culture, discharged on lactulose 01/22-01/25, ammonia 149, urine with low count of C. glabrata (20K), rifaximin added 01/28-01/30, ammonia 79, urine culture with reinier 02/02-present, ammonia 172 # Refractory hepatic encephalopathy Last discharge 01/30 and readmitted 02/02. Got worse very abruptly according to family. Was having 4 or more good BMs per day at home. Her bilirubin and INR are stable/at baseline and MELD 3.0 calculates to 19. She had grade 1 varices on recent EGD. No ascites on imaging and is on low dose diuretics. Currently improved after aggressive lactulose and continued rifaximin. Gave ceftriaxone pending urine culture, but has no UTI symptoms and cultures have not demonstrated UTIs previously -lactulose 30g tid to qid -rifaximin 550 mg bid -had 4 BMs yesterday and one this AM I reviewed her PMH/PSH and previous abdominal CTs - there are three recent ones. Her refractory HE is probably related to her gastric bypass in combination with portosystemic shunts - most notably splenorenal shunt, which is demonstrated on her CTs. Discussed with professor of environmental engineering Dr. Slater at [facility] and he graciously accepted in transfer for evaluation of her splenorenal shunt for embolization and evaluation of her cirrhosis. I updated her and son at bedside today. Previous Rene glabrata in urine on 01/22 but not on 01/29 so this is probably candiduria not rene UTI, also low colony count UA has been persistently abnormal, reinier grew 01/29 Has been on ceftriaxone 1 g q24h starting 02/03 pending urine culture but UTI seems unlikely # Cirrhosis with portal hypertension - MAFLD Holding furosemide and spironolactone. On carvedilol for grade 1 varices last EGD here at [facility]. Treatment plan: Holding furosemide, spironolactone, carvedilol at the moment, anticipate resumption. BP low normal. # DVT Prophylaxis: SCDs, chemoprophylaxis relatively contraindicated due to thrombocytopenia and coagulopathy. Hx DVT following a lower extremity surgery in the remote past. Admission HPI Per Admitting Provider The patient is a 69-year-old female with a past medical history including recurrent hepatic encephalopathy, diverticulitis, status post spinal surgery, neurogenic claudication due to lumbar spinal stenosis, hepatic cirrhosis, portal hypertension, NAFLD, and hypertension. Her most recent hospitalizations for hepatic encephalopathy are: 12/31-01/01/2025, 01/23-01/25/2025 and 01/29-01/30/2025. The patient presents to the emergency department, with her , after he noticed that she had developed an acute return of her confusion, and decreased responsiveness to him when he tried to help her this morning. She status post hospitalization most recently from 01/29-01/30/2025, where she was admitted for hepatic encephalopathy, and was discharged on her usual lactulose prescription and had the addition of Xifaxan. Her reports that she had been taking all medications as directed, until this morning. The patient herself is not responding to questions, and her provides most of the information regar ding HPI and ROS. Ammonia level is 172 in the ED today, with most recent from 01/30. As noted above, her reports that she has been taking her medications as directed, and he reports that he has physically been watching her take the medications. He reports that she has had no signs of infection. She had been doing well since hospitalization until the morning of admission, 02/02, when she became less cooperative and more confused. She did not take any medications today. CT scan of head in the hospital today is negative. From the ED patient received lactulose 30 mg p.o. x 1. Discharge Exam General Appearance: Awake, sitting up in bed, looks improved Vital signs: Reviewed past 24h vital signs in EMR, unremarkable. Respiratory: Clear to auscultation bilaterally, no rhonchi, rales, or wheezes. Cardiovascular: Regular rhythm, syst murmur, no rubs or gallops. Gastrointestinal: Soft, nontender, nondistended, active bowel sounds, no suprapubic tenderness. Extremities: Warm, well perfused, 1+ foot/ankle edema - improved. Skin: Warm, dry, well perfused, scattered spider telangiectasias. Neurological: alert, oriented to self, hospital, basic situation, does not give detailed verbal replies, follows commands, mild asterixis improved from moderate yesterday. Psychiatric: Normal. Discharge Plan Discharge Items Reason For Visit: HEPATIC ENCEPHALOPATHY Condition on Discharge: Fair Follow-up/Referrals: Marissa Alvarado PA-C [Primary Care Provider] - Medications and DC Order Prescriptions: No Action furosemide [Lasix] 20 mg tablet 40 mg PO QAM Rx Instructions: TAKE TWO TABLETS EVERY AM furosemide 20 mg tablet 20 mg PO .Q AFTERNOON Rx Instructions: TAKE ONE TABLET DAILY AT 1PM, IN ADDITION TO TAKING TWO 20MG TABLETS IN THE AM. potassium chloride 10 mEq capsule, extended release 10 meq PO QAM zinc gluconate 50 mg Tablet 50 mg PO QAM cholecalciferol (vitamin D3) 125 mcg (5,000 unit) Capsule 125 mcg PO QAM vitamin [id number]-[id number] acid 2,500-400 mcg Tablet,Disintegrating 1 tab PO QAM solifenacin 5 mg tablet 5 mg PO DAILY lactulose 10 gram/15 mL Solution 30 g PO TID Qty: 946 0RF spironolactone 25 mg tablet 50 mg PO QAM Qty: 0 0RF aspirin 81 mg Tablet,Delayed Release (Dr/Ec) 81 mg PO QAM Xifaxan 550 mg tablet 550 mg PO BID Qty: 60 0RF carvedilol 3.125 mg tablet 3.125 mg PO BID Qty: 60 0RF Rx Instructions: must administer with a meal/food Admission Data Admit Date/Time: 02/02/25 22:45 Attending Provider: Roxy York Admit Provider: Behzad Valdivia Primary Care Provider: Marissa Alvarado Other Providers: Behzad Valdivia Hospital Stay Data Consultations 02/02/25 21:45 ED Decision to Admit Stat Diagnostic Imagining Performed 02/02/25 19:26 CT head/brain wo con Stat 02/03/25 11:12 US duplex portal hepatic veins Routine Total Time Total Time Spent Total Time Spent (In Minutes): I personally spent: 80 minutes today on clinical care activities including: reviewing chart notes and vital signs reviewing labs coordinating transfer, discussion with accepting physician examining and counseling the patient counseling the patient's family writing orders documentation Coding Level of Care Code 46887 INP/OBS DISCH >30 MIN Diagnoses Acute hepatic encephalopathy K76.82 Cirrhosis K74.60 Portosystemic shunt, spontaneous I99.8 Portal hypertension K76.6 NAFLD (nonalcoholic fatty liver disease) K76.0 H/O gastric bypass Z98.84
[2025-02-04 13:38] VITALS: BP 110/67
[2025-02-04 14:30] VITALS: PULSE 67
== END 2025-02-04 14:50 | disposition short-term general hospital (02) | DRG 442 ==
LOC: ED 19:04 → 4W 22:45 → SUATTDRO 22:45 → 4W 02-03 00:08